=== PATIENT | male | born 1965 | race Caucasian/White ===

== ENCOUNTER 2022-01-30 16:34 | Emergency (ER) | payer BC ==
[2022-01-30 16:46] LABS: Glucose,Whole Blood 132 mg/dL (70-110)
[2022-01-30] MEDS ORDERED: SODIUM CHLORIDE 0.9% 1,000 ML IV STA (16:51)
--- NOTE | 2022-01-30 16:55 | ED ---
General Adult HPI - General Chief complaint: Neuro Symptoms/Deficit Stated complaint: altered mental status Time Seen by Provider: 01/30/22 16:50 Source: patient Mode of arrival: ambulatory Limitations: no limitations - History of Present Illness Initial comments: Dictation was produced using [employer] dictation software. please excuse any grammatical, word or spelling errors. Chief Complaint: 56-year-old male presents with strokelike symptoms History of Present Illness: History of present illness obtained from at the bedside. Patient is a 56-year-old male he has no known comorbidities. He presents with his . Patient was last seen normal approximately 10 AM today. He went for out for a walk at that time. 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 He came back into the house at around 4:00 where he was found to be altered. reports that this morning he did seem to have a little brain fog. The ROS documented in this emergency department record has been reviewed and confirmed by me. Those systems with pertinent positive or negative responses have been documented in the HPI. All other systems are other negative and/or noncontributory. PHYSICAL EXAM: General Impression: Does not follow commands, does not speak, not in acute distress HEENT: Normocephalic atraumatic, extra-ocular movements intact, pupils equal and reactive to light bilaterally, mucous membranes moist. Cardiovascular: Heart regular rate and rhythm Chest: no retractions, no tachypnea Abdomen: abdomen soft, non-tender, non-distended, no organomegaly Musculoskeletal: Pulses present and equal in all extremities, no peripheral edema Motor: Moves all showing grossly Neurological: CN II-XII grossly intact, does not follow commands, patient does move his lower extremities bilaterally with gentle plantar tickling. Patient is able to hold up his arms without any drift however does not follow commands and attempting to try to hold up his legs, patient is aphasic, no gaze deviation. NIH score 18 Skin: Intact with no visualized rashes Psych: Normal affect and mood ED course: 56-year-old male presents to the emergency Department with strokelike symptoms. His last known normal was around 10 AM according to . Signs upon arrival are within acceptable limits. Patient has extremely high NIH score. Patient not a candidate for out the place at this time given that he is outside the window for alteplase administration. Code stroke was paged. Laboratory evaluation obtained. CBC, coag panel, metabolic panel is unremarkable. Computed tomography scan the brain shows hypoattenuation in the left parietal lobe frontal lobe with septations suspicious for intracranial mass. Case was discussed with stroke neurologist who agreed with radiology interpretation. was updated at the bedside regarding patient's imaging studies. Patient will be transferred to higher level of care. Patient given 10 mg of IV Decadron. CT angios of the head and neck shows no large vessel occlusion or any acute intracranial vascular processes. Spoke with Dr. Garcia at [facility] who is willing to accept patient care for ER to ER transfer. EKG interpretation: Ventricular rate 71, sinus rhythm,. 126, QS 113, QTc 437. No DE prolongation, no QTC prolongation, no ST or T-wave changes noted. Overall, this EKG is unremarkable - Related Data Home Medications Medication Instructions Recorded Confirmed Omeprazole Magnesium [PriLOSEC OTC] 20 mg PO DAILY 01/30/22 01/30/22 Sucralfate [Carafate] 1 gm PO QID 01/30/22 01/30/22 Tamsulosin HCl [Flomax] 0.4 mg PO DAILY 01/30/22 01/30/22 Allergies Allergy/AdvReac Type Severity Reaction Status Date / Time No Known Allergies Allergy Verified 01/30/22 17:08 Review of Systems ROS Statement: Those systems with pertinent positive or pertinent negative responses have been documented in the HPI. ROS Other: All systems not noted in ROS Statement are negative. Past Medical History Past Medical History: No Reported History History of Any Multi-Drug Resistant Organisms: None Reported Past Surgical History: No Surgical Hx Reported Past Psychological History: No Psychological Hx Reported Smoking Status: Never smoker Past Alcohol Use History: Occasional Past Drug Use History: None Reported General Exam Limitations: no limitations Course Vital Signs 01/30/22 01/30/22 01/30/22 16:36 17:00 17:14 Temperature 97.6 F Pulse Rate 66 90 93 Respiratory 18 22 18 Rate Blood Pressure 138/88 148/95 148/95 O2 Sat by Pulse 92 L 94 L 90 L Oximetry 01/30/22 01/30/22 17:30 18:00 Temperature 98.4 F 98.3 F Pulse Rate 102 H 101 H Respiratory 22 16 Rate Blood Pressure 146/84 134/87 O2 Sat by Pulse 98 98 Oximetry Medical Decision Making - Lab Data Result diagrams: 01/30/22 17:08 01/30/22 17:08 Lab Results 01/30/22 01/30/22 01/30/22 Range/Units 16:45 17:08 17:08 WBC 9.1 (3.8-10.6) k/uL RBC 4.58 (4.30-5.90) m/uL Hgb 14.3 (13.0-17.5) gm/dL Hct 42.8 (39.0-53.0) % MCV 93.5 (80.0-100.0) fL MCH 31.1 (25.0-35.0) pg MCHC 33.3 (31.0-37.0) g/dL RDW 12.9 (11.5-15.5) % Plt Count 327 (150-450) k/uL MPV 7.2 Neutrophils % 74 % Lymphocytes % 17 % Monocytes % 4 % Eosinophils % 2 % Basophils % 1 % Neutrophils # 6.8 (1.3-7.7) k/uL Lymphocytes # 1.6 (1.0-4.8) k/uL Monocytes # 0.4 (0-1.0) k/uL Eosinophils # 0.1 (0-0.7) k/uL Basophils # 0.1 (0-0.2) k/uL PT 10.5 (9.0-12.0) sec INR 1.0 (<1.2) APTT 20.8 L (22.0-30.0) sec Sodium (137-145) mmol/L Potassium (3.5-5.1) mmol/L Chloride (98-107) mmol/L Carbon Dioxide (22-30) mmol/L Anion Gap mmol/L BUN (9-20) mg/dL Creatinine (0.66-1.25) mg/dL Est GFR (CKD-EPI)AfAm (>60 ml/min/1.73 sqM) Est GFR (CKD-EPI)NonAf (>60 ml/min/1.73 sqM) Glucose (74-99) mg/dL POC Glucose (mg/dL) 132 H (70-110) mg/dL POC Glu Mental Health Therapist ID Dwaine Owen Calcium (8.4-10.2) mg/dL Total Bilirubin (0.2-1.3) mg/dL AST (17-59) U/L ALT (4-49) U/L Alkaline Phosphatase (38-126) U/L Troponin I (0.000-0.034) ng/mL Total Protein (6.3-8.2) g/dL Albumin (3.5-5.0) g/dL 01/30/22 01/30/22 Range/Units 17:08 17:08 WBC (3.8-10.6) k/uL RBC (4.30-5.90) m/uL Hgb (13.0-17.5) gm/dL Hct (39.0-53.0) % MCV (80.0-100.0) fL MCH (25.0-35.0) pg MCHC (31.0-37.0) g/dL RDW (11.5-15.5) % Plt Count (150-450) k/uL MPV Neutrophils % % Lymphocytes % % Monocytes % % Eosinophils % % Basophils % % Neutrophils # (1.3-7.7) k/uL Lymphocytes # (1.0-4.8) k/uL Monocytes # (0-1.0) k/uL Eosinophils # (0-0.7) k/uL Basophils # (0-0.2) k/uL PT (9.0-12.0) sec INR (<1.2) APTT (22.0-30.0) sec Sodium 139 (137-145) mmol/L Potassium 3.9 (3.5-5.1) mmol/L Chloride 104 (98-107) mmol/L Carbon Dioxide 31 H (22-30) mmol/L Anion Gap 4 mmol/L BUN 13 (9-20) mg/dL Creatinine 0.88 (0.66-1.25) mg/dL Est GFR (CKD-EPI)AfAm >90 (>60 ml/min/1.73 sqM) Est GFR (CKD-EPI)NonAf >90 (>60 ml/min/1.73 sqM) Glucose 138 H (74-99) mg/dL POC Glucose (mg/dL) (70-110) mg/dL POC Glu Mental Health Therapist ID Calcium 9.0 (8.4-10.2) mg/dL Total Bilirubin 0.4 (0.2-1.3) mg/dL AST 19 (17-59) U/L ALT 13 (4-49) U/L Alkaline Phosphatase 59 (38-126) U/L Troponin I <0.012 (0.000-0.034) ng/mL Total Protein 6.8 (6.3-8.2) g/dL Albumin 4.4 (3.5-5.0) g/dL Critical Care Time Critical Care Time: Yes Total Critical Care Time: 33 Disposition Clinical Impression: Brain mass Disposition: OTHER INSTITUTION NOT DEFINED Condition: Serious Is patient prescribed a controlled substance at d/c from ED?: No Referrals: None,Stated [Primary Care Provider] - 1-2 days - Out of Hospital Transfer - Req. Specs Out of Hospital Transfer - Requested Specifics: Other [facility] ([facility])
[2022-01-30] MEDS ORDERED: LORazepam 2 MG/ML INJ IM STA (17:15)
[2022-01-30 17:18] LABS: Basophils # (A) 0.1 k/uL (0-0.2); Basophils % (A) 1 %; Eosinophils # (A) 0.1 k/uL (0-0.7); Eosinophils % (A) 2 %; HCT 42.8 % (39.0-53.0); HGB 14.3 gm/dL (13.0-17.5); Lymphocytes # (A) 1.6 k/uL (1.0-4.8); Lymphocytes % (A) 17 %; MCH 31.1 pg (25.0-35.0); MCHC 33.3 g/dL (31.0-37.0); MCV 93.5 fL (80.0-100.0); Mean Platelet Volume 7.2; Monocytes # (A) 0.4 k/uL (0-1.0); Monocytes % (A) 4 %; Neutrophils # (A) 6.8 k/uL (1.3-7.7); Neutrophils % (A) 74 %; Platelet Count 327 k/uL (150-450); RBC 4.58 m/uL (4.30-5.90); RDW 12.9 % (11.5-15.5); WBC 9.1 k/uL (3.8-10.6)
[2022-01-30] MEDS ORDERED: levETIRAcetam IV 1,000 MG in SALINE 1 100ML.BAG IVPB STA (17:20)
--- NOTE | 2022-01-30 17:29 | CT ---
EXAMINATION TYPE: CT brain wo con for TPA CT DLP: 1137.2 mGycm, Automated exposure control for dose reduction was used. DATE OF EXAM: 01/30/2022 5:06 PM COMPARISON: CT brain same day. CLINICAL INDICATION:Male, 56 years old with history of Neuro deficit, acute, stroke suspected, cva TECHNIQUE: Brain: Multiple axial CT images of the brain were obtained without IV contrast. FINDINGS: Brain: Extra-axial spaces: No abnormal extra-axial fluid collections. Ventricular system: Effacement of the left lateral ventricle secondary to intra-axial mass. Cerebral parenchyma: Heterogenous appearance to left parietal lobe/frontal lobe multiple low-attenuat ion areas with septations present. The area measures roughly 6.1 x 2.7 x 5.5 cm No acute intraparenchymal hemorrhage or mass effect. The fagan-white junction is well differentiated. Cerebellum: Unremarkable. Mass effect: No evidence of midline shift. Intracranial vasculature: unremarkable Soft tissues: Normal. Calvarium/osseous structures: No depressed skull fracture. Paranasal sinuses and mastoid air cells: Mild scattered paranasal sinus disease most pronounced in th e left maxillary sinus.. Visualized orbits: Orbital contents are intact. IMPRESSION: Suspected underlying mass within the left posterior frontal/parietal region lobe. Further evaluation with MRI with and without IV contrast is recommended. Furthermore there is mild effacement of the lef t lateral ventricle compared to a forementioned mass.
[2022-01-30 17:30] LABS: ALT 13 U/L (4-49); AST 19 U/L (17-59); African American GFR (CKD) >90 (>60 ml/min/1.73 sqM); Albumin 4.4 g/dL (3.5-5.0); Alkaline Phosphatase 59 U/L (38-126); Anion Gap 4 mmol/L; Blood Urea Nitrogen 13 mg/dL (9-20); Carbon Dioxide 31 mmol/L (22-30); Chloride 104 mmol/L (98-107); Glucose 138 mg/dL (74-99); Non-African American GFR(CKD) >90 (>60 ml/min/1.73 sqM); Potassium 3.9 mmol/L (3.5-5.1); Sodium 139 mmol/L (137-145); Total Bilirubin 0.4 mg/dL (0.2-1.3); Total Protein 6.8 g/dL (6.3-8.2)
[2022-01-30 17:37] LABS: Prothrombin Time 10.5 sec (9.0-12.0)
[2022-01-30 17:44] LABS: Partial Thromboplastin Time 20.8 sec (22.0-30.0)
[2022-01-30] MEDS ORDERED: DEXAMETHASONE SOD PHOSPHATE 10 MG/ML 1 ML VIAL IV STA (17:53)
--- NOTE | 2022-01-30 18:02 | CT ---
EXAMINATION TYPE: CT angio head neck CT DLP: 433.4 mGycm, Automated exposure control for dose reduction was used. DATE OF EXAM: 01/30/2022 5:29 PM COMPARISON: CT brain same day. CLINICAL INDICATION:Male, 56 years old with history of Neuro deficit, acute, stroke suspected; cva TECHNIQUE: Axially acquired helical CT angiogram of the head and neck was obtained with contrast util izing 65 cc of Isovue-370 administered intravenously. Axial images are supplemented with 3D reconstru ctions which were post-processed at an independent workstation. NASCET criteria used. FINDINGS: CTA HEAD: Redemonstration of intra-axial left posterior frontal/parietal region intra-axial mass. Few vessels enter this mass best appreciated on series 406 image 61. No evidence of hemorrhage. Better c haracterized on prior CT head. No evidence of acute intracranial hemorrhage, or midline shift. The ventricles, sulci, and cisterns a re unremarkable. The visualized portions of the internal carotid arteries, middle cerebral arteries, anterior cerebral arteries, and posterior cerebral arteries are patent. The basilar and vertebral arteries are patent. CTA NECK: Right Carotid System: The common carotid artery and external carotid artery are patent. The carotid bifurcation demonstrate s no evidence of hemodynamically significant stenosis. The remaining portions of the internal carotid artery demonstrate normal size without significant narrowing. Left Carotid System: The common carotid artery and external carotid artery are patent. The carotid bifurcation demonstrate s no evidence of hemodynamically significant stenosis. The remaining portions of the internal carotid artery demonstrate normal size without significant narrowing. Vertebral arteries are patent without evidence hemodynamically significant stenosis. There is a three-vessel aortic arch. The origins of the great vessels are patent. No evidence of hemo dynamically significant stenosis. There is layering debris within the trachea. Scattered mucosal thickening of the paranasal sinuses mo st proximal left maxillary sinus. IMPRESSION: 1. No evidence of dissection of the cervical internal carotid arteries or vertebral arteries or any e vidence of significant stenosis at the carotid bifurcations. 2. No evidence of high-grade stenosis or intracranial aneurysm. 3. Suspected intra-axial mass within the left posterior frontal/parietal region. No evidence of hemor rhage. Further evaluation with MRI with IV contrast is recommended.
[2022-01-30 18:07] VITALS: BP 134/87; PULSE 101; RESP 16; TEMP 98.3
--- NOTE | 2022-01-30 19:07 | XR ---
EXAMINATION TYPE: XR chest 1V portable DATE OF EXAM: 01/30/2022 6:13 PM COMPARISON: none TECHNIQUE: XR chest 1V portable Portable AP radiograph of the chest. CLINICAL INDICATION:Male, 56 years old with history of altered mental status; FINDINGS: Lungs/Pleura: There is no evidence of pleural effusion, focal consolidation, or pneumothorax. Pulmonary vascularity: Unremarkable. Heart/mediastinum: Cardiomediastinal silhouette is unremarkable. Musculoskeletal: No acute osseous pathology. IMPRESSION: No acute cardiopulmonary disease/process.
== END 2022-01-30 18:55 | disposition other institution (70) ==
LOC: EC 16:34
DX: G93.89 Other specified disorders of brain (principal)
CPT/HCPCS: 36415; 93005; 80053; 84484; 85025; 85610; 85730; 71045; 70496; 70450; 70498; 99291; 96365; 96361; 96375; 96372; J2060; J1100; J1953; Q9967; 96374

== ENCOUNTER → 2022-05-22 | Outpatient (CLI) | payer BC ==
--- NOTE | 2022-05-22 18:54 | MR ---
EXAMINATION TYPE: MR brain wo/w con DATE OF EXAM: 05/22/2022 COMPARISON: 02/08/2022 HISTORY: Brain cancer, history of surgery. CONTRAST: Performed utilizing 7 mL intravenous Gadavist gadolinium contrast. TECHNIQUE: Multiplanar, multiecho imaging on a 3.0 Yady magnet is performed through the brain. Stud y is performed within 24 hours of arrival to the hospital. Findings: There is a large area of vasogenic edema extending through the left parietal occipital lobe s with mild extension into the temporal lobe. Patient's known neoplasm and surgery in the trilobar re gion is evident. On postcontrast T1 weighted images this measures 7.0 AP by 3.6 transverse by 5.5 cm cranial caudal dimension. (Prior measurement 5.0 x 3.0 x 4.9 cm) There is a central area of low sign al which may be necrosis. This has mass effect on the occipital horn left lateral ventricle. Vasogeni c edema has effacement of adjacent sulci. No subfalcine herniation is evident. No tentorial herniatio n is evident. There is approximately 0.6 cm midline shift at the level of the lateral ventricles of 0 .6 cm. There is some compression of the left lateral ventricle. No temporal horn dilatation is evident. No h ydrocephalus is evident. There are ventricle shifted towards the right. Fourth ventricle is normal an d midline. No additional areas of abnormal enhancement. There may be a few punctate subcortical white matter kayleigh nges within the remaining portions of brain, likely on the basis of chronic white matter ischemic typ e changes. Migraine headaches, or vasculitis could be considered. IMPRESSIONS: 1. Enlarging mass in the trilobar region best visualized on postcontrast imaging causing mass effect and vasogenic edema. Some midline shift is noted at this time which is an interval change. Report is provided to the referring physician by telephone at 1850 hours 05/22/2022.
== END | disposition home or self-care (01) ==
LOC: RADMRIMAIN 10:31
PROVIDERS: ATTEND Radiology Radiation Oncology
DX: C71.3 Malignant neoplasm of parietal lobe (principal)
CPT/HCPCS: 70553; A9585

== ENCOUNTER → 2022-06-22 | Outpatient (CLI) | payer BC ==
--- NOTE | 2022-06-22 17:04 | MR ---
EXAMINATION TYPE: MR brain wo/w con DATE OF EXAM: 06/22/2022 COMPARISON: 05/22/2022 HISTORY: Brain tumor removed CONTRAST: Performed utilizing 7 mL intravenous Gadavist gadolinium contrast. TECHNIQUE: Multiplanar, multiecho imaging on a 3.0 Yady magnet is performed through the brain. Stud y is performed within 24 hours of arrival to the hospital. The craniovertebral junction is normal. The pituitary is normal. Prior surgical intervention is evident within the left parietal-occipital region. Adjacent vasogenic edema is present extending towards the left basal ganglia through the occipital and parietal lobes. U nderlying precontrast central mass measures 3.7 x 2.3 centimeters previous measurement 3.3 x 1.8 cm. This has slightly enlarged from comparison. There is compression of the left lateral ventricle with d isplacement of the occipital horn. Postcontrast sagittal images are reviewed. The area of the abnormality has peripheral enhancement and measures 6.1 x 7.0 x 4.7cm. Prior measurement 6.2 x 6.3 x 4.2 cm. Some mild midline shift is present estimated at 0.7 cm. No additional abnormal areas of enhancement i s evident. The sulci in the parietal occipital region are effaced. Findings appear stable from compar mikala. Diffusion-weighted imaging is performed. No abnormal hyperintensity is present to suggest an acute i ntracranial infarct or acute ischemic change. Few scattered punctate subcortical white matter changes are evident in the remaining portion of the f ield. These are nonspecific present previously and likely related to chronic white matter ischemic ch anges. Ventricles and sulci are otherwise appropriate for the patient age. No temporal horn dilatation is e vident. IMPRESSIONS: 1. Slight enlargement of the left parietal occipital lobe enhancing mass. 2. Mass has adjacent vasogenic edema causing compression of the sulci and ventricle with some 0.7 cm midline shift towards the right which appears similar to the comparison. 3. Chronic appearing scattered punctate subcortical white matter changes.
== END | disposition home or self-care (01) ==
LOC: RADMRIMAIN 11:37
PROVIDERS: ATTEND Radiology Radiation Oncology
DX: C71.3 Malignant neoplasm of parietal lobe (principal); R90.82 White matter disease, unspecified; Z79.899 Other long term (current) drug therapy
CPT/HCPCS: 70553; A9585

== ENCOUNTER → 2022-10-03 | Outpatient (CLI) | payer BC ==
--- NOTE | 2022-10-05 08:54 | MR ---
EXAMINATION TYPE: MR brain wo/w con DATE OF EXAM: 10/03/2022 10:18 AM CLINICAL INDICATION:Male, 57 years old with history of C71.3; Prior on PACS, FU brain tumor, Gadavis t 6.5 COMPARISON: 08/07/2022 most recent. TECHNIQUE: Multi planar, multi sequence imaging was performed through the brain including: T1, T2, In version recovery, susceptibility weighted imaging and gradient echo imaging and Diffusion weighted im aging. The patient was then given intravenous contrast and multi planar, T1 fat-saturation images wer e obtained. IV Contrast: 6.5 cc Gadavist FINDINGS: Redemonstration of posttreatment changes to the left parietal region. There remains tumor bed somewha t thin peripheral high T2 signal enhancement which has decreased from prior overall there is decrease d in size measuring 4.1 x 3.9 x 2.3 cm, previously 6.1 x 7.8 x 4.4 cm. Areas of intrinsic high T1 sig nal on precontrast imaging remain present. There is felt to be postcontrast enhancement in some of th mariama areas examples include series series 702 image 13 anterior lesion along the mass, superiorly at i mage 13 also present. There is decrease in vasogenic edema in this region. No new masses visualized. No additional abnormal enhancement identified. No evidence for acute/subacute CVA. Scattered high T2 FLAIR foci throughout the deep white matter. The bone marrow signal demonstrates treatment changes the left posterior skull. Metallic plates in pl cornelius. Paranasal sinuses and mastoid air cells: Mucosal thickening of the left maxillary sinus. Visualized orbits: Orbital contents are intact. IMPRESSION: Posttreatment changes with decrease in size of the parietal intra-axial mass. There remains periphera l enhancement and intrinsic high T1 signal suggestive of residual disease. Continued follow-up imagin g. No new masses identified.
== END | disposition home or self-care (01) ==
LOC: RADMRIMAIN 09:25
PROVIDERS: ATTEND Radiology Radiation Oncology
DX: C71.3 Malignant neoplasm of parietal lobe (principal); Z79.899 Other long term (current) drug therapy; Z98.890 Other specified postprocedural states
CPT/HCPCS: 70553; A9585

== ENCOUNTER 2022-12-26 16:19 | Inpatient (IN) | payer BC ==
[2022-12-26] MEDS ORDERED: SODIUM CHLORIDE 0.9% 1,000 ML IV STA (16:38)
[2022-12-26 16:52] LABS: Glucose,Whole Blood 116 mg/dL (70-110)
--- NOTE | 2022-12-26 16:54 | ED ---
Altered Mental Status HPI - General Chief Complaint: Neuro Symptoms/Deficit Stated Complaint: right side weakness-brain tumor Time Seen by Provider: 12/26/22 16:38 Source: patient, RN notes reviewed, old records reviewed, Caregiver Mode of arrival: EMS Limitations: no limitations - History of Present Illness Initial Comments: This is a 57-year-old male is unable to give history patient's history obtained by and family. EMS. Patient presented with altered mental status patient awoke today not feeling well per family he then took a nap around 10 woke up around 12:30 even worse off and condition. Not speaking and acting appropriately. 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 Patient is unable to provide history but he does deny pain MD Complaint: altered mental status, confusion, decreased responsiveness, weakness -: unknown Severity: severe Consistency of Symptoms: waxing and waning, getting worse Context: history of similar presentation, recent fever, seizure disorder (No known history of but history of brain surgery) Associated Symptoms: diaphoresis, fever/chills, nausea/vomiting, weakness Treatments Prior to Arrival: IV fluid, oxygen - Related Data Home Medications Medication Instructions Recorded Confirmed Tamsulosin HCl [Flomax] 0.8 mg PO HS 01/30/22 12/26/22 Finasteride [Proscar] 5 mg PO HS 12/26/22 12/26/22 Ondansetron [Zofran] 4 - 8 mg PO Q8H PRN 12/26/22 12/26/22 Temozolomide [Temodar] 250 mg PO DIRECTED 12/26/22 12/26/22 levETIRAcetam [Keppra] 1,000 mg PO BID 12/26/22 12/26/22 Previous Rx's Medication Instructions Recorded Amoxic-Pot Clav 875-125Mg 1 each PO Q12HR #10 tab 12/31/22 [Augmentin 875-125] Allergies Allergy/AdvReac Type Severity Reaction Status Date / Time No Known Allergies Allergy Verified 12/26/22 19:26 Review of Systems ROS Statement: Those systems with pertinent positive or pertinent negative responses have been documented in the HPI. ROS Other: All systems not noted in ROS Statement are negative. Past Medical History Past Medical History: No Reported History History of Any Multi-Drug Resistant Organisms: None Reported Past Surgical History: No Surgical Hx Reported Past Psychological History: No Psychological Hx Reported Smoking Status: Never smoker Past Alcohol Use History: Occasional Past Drug Use History: None Reported - Past Family History Mother Family Medical History: Unable to Obtain (due to patient's mental status) General Exam Limitations: altered mental status General appearance: alert, in no apparent distress, lethargic, in distress Head exam: Present: atraumatic, normocephalic, normal inspection Eye exam: Present: normal appearance, PERRL, EOMI. Absent: scleral icterus, conjunctival injection, periorbital swelling ENT exam: Present: normal exam, mucous membranes moist Neck exam: Present: normal inspection. Absent: tenderness, meningismus, ly mphadenopathy Respiratory exam: Present: normal lung sounds bilaterally. Absent: respiratory distress, wheezes, rales, rhonchi, stridor Cardiovascular Exam: Present: regular rate, normal rhythm, normal heart sounds. Absent: systolic murmur, diastolic murmur, rubs, gallop, clicks GI/Abdominal exam: Present: soft, normal bowel sounds. Absent: distended, tenderness, guarding, rebound, rigid Extremities exam: Present: normal inspection, full ROM, normal capillary refill. Absent: tenderness, pedal edema, joint swelling, calf tenderness Back exam: Present: normal inspection Neurological exam: Present: alert, oriented X3, CN II-XII intact Psychiatric exam: Present: normal affect, normal mood Skin exam: Present: warm, dry, intact, normal color. Absent: rash Course Vital Signs 12/26/22 12/26/22 12/26/22 16:26 16:32 16:38 Temperature 98.0 F Pulse Rate 105 H 108 H 96 Respiratory 20 18 Rate Blood Pressure 129/72 135/88 O2 Sat by Pulse 93 L 97 90 L Oximetry 12/26/22 12/26/22 12/26/22 16:53 17:08 17:23 Temperature Pulse Rate 111 H 104 H 105 H Respiratory 18 18 18 Rate Blood Pressure 157/101 161/98 152/94 O2 Sat by Pulse 99 99 98 Oximetry 12/26/22 12/26/22 12/26/22 18:23 18:50 19:29 Temperature 100.9 F H Pulse Rate 109 H 101 H Respiratory 18 18 Rate Blood Pressure 145/97 138/84 O2 Sat by Pulse 97 97 Oximetry 12/26/22 21:19 Temperature Pulse Rate 86 Respiratory 18 Rate Blood Pressure 106/66 O2 Sat by Pulse 95 Oximetry - Reevaluation(s) Reevaluation #1: 12/26/22 23:11 Medical records reviewed Code stroke was paged on patient arrival No TPA candidate secondary to wake up stroke with symptoms starting around 10 AM outside of a 5 hour window Reevaluation #2: 12/26/22 23:12 No significant change in symptoms here in the ER Reevaluation #3: 12/26/22 23:12 patient family informed of results and questions answered Reevaluation #4: 12/26/22 23:12 Was pt. sent in by a medical professional or institution? @ -no Did you speak to anyone other than the patient for history? @ -yes did speak to the patient's is at bedside gives history surrounding presentation to the emergency department Did you review nursing and triage notes? @ -agree Were old charts reviewed? @ -no Differential Diagnosis? @ -prior EKG interpreted by me (3pts min.)? @ -yes X-rays interpreted by me (1pt min.)? @ -yes CT interpreted by me (1pt min.)? @ -yes U/S interpreted by me (1pt. min.)? @ -no What testing was considered but not performed? (CT, X-rays, U/S, labs)? Why? @ -no What meds were considered but not given? Why? @ -no Did you discuss the management of the patient with other professionals? @ -no Did you reconcile home meds? @ -no Was smoking cessation discussed for >3mins.? @ -no Was critical care preformed (if so, how long)? @ -yes31 Were there social determinants of health that impacted care today? How? (Homelessness, low income, unemployed, alcoholism, drug addiction, transportation, low edu. Level, literacy, decrease access to med. care, retirement, rehab)? @ -no Was there de-escalation of care discussed even if they declined? (Discuss DNR or withdrawal of care, Hospice)? @ -no What co-morbidities impacted this encounter? (DM, HTN, Smoking, COPD, CAD, Cancer, CVA, Hep., AIDS, mental health diagnosis, sleep apnea, morbid obesity)? @ -none Was patient admitted / discharged? @ -57 male to the emergency department with significant altered mental status found to have fever pneumonia hypoxia and came in as a code stroke. Admitted Undiagnosed new problem with uncertain prognosis? @ -no Drug Therapy requiring intensive monitoring for toxicity (Heparin, Nitro, Insulin, Cardizem)? @ -no Were any procedures done? @ -no Diagnosis/symptom? @ -Altered mental status, fever, pneumonia, CVA Acute, or Chronic, or Acute on Chronic? @ -Acute Uncomplicated (without systemic symptoms) or Complicated (systemic symptoms)? @ -complicated Side effects of treatment? @ -no Exacerbation, Progression, or Severe Exacerbation] @ -no Poses a threat to life or bodily function? @ -yes with altered mental status secondary to fever and sepsis, CVA Reevaluation #5: 12/26/22 23:12 Differential Dyspnea: Coronary syndrome, arrhythmia, tamponade, asthma, COPD, pulmonary embolism, pneumonia, pneumothorax, pulmonary effusion, anaphylaxis, diabetic ketoacidosis, flailed chest, pulmonary contusion, diaphragmatic rupture, anemia, neuromuscular, this is not meant to be an all-inclusive list. Differential Fever: Pneumonia, viral URI, endocarditis, myocarditis, pericarditis, otitis, sinusitis, peritonsillar Abscess, retropharyngeal Abscess, epiglottitis, peritonitis, appendicitis, Karley cystitis, diverticulitis, hepatitis, colitis, UTI, PID, TOA, pyelonephritis, prostatitis, epididymitis, meningitis, encephalitis, pulmonary embolism, CVA, thyroid storm, pancreatitis, adrenal crisis, cavernous sinus thrombosis, this is not meant to be an all-inclusive list. Differential Altered Mental Status: Hypoglycemia, DKA, hypercapnia, ETOH, overdose, CO poisoning, trauma, myxedema coma, HTN encephalopathy, infection, encephalitis, psychosis, intercranial hemorrhage, hepatic encephalopathy, meningitis, CVA, this is not meant to be an all-inclusive list - Consultations Consultation #1: Spoke with admitting physicians will admit this patient Medical Decision Making - Medical Decision Making 57 male to the emergency department for evaluation of altered mental status w code stroke, patient is found to have fever and coronavirus w pneumonia, hypoxia profound and persistent here in the emergency department patient is no real change of neurological symptoms here in the ER Unable to obtain CTa of chest for PE w elevated dDimer and hyypoxia due to prior contrast CT of head No blood thinners with possible bleeding on CT brain - Lab Data Result diagrams: 12/31/22 08:03 06/12/23 08:03 Lab Results 12/26/22 12/26/22 12/26/22 Range/Units 16:48 16:48 16:48 WBC 8.8 (3.8-10.6) k/uL RBC 5.02 (4.30-5.90) m/uL Hgb 14.9 (13.0-17.5) gm/dL Hct 44.9 (39.0-53.0) % MCV 89.4 (80.0-100.0) fL MCH 29.6 (25.0-35.0) pg MCHC 33.1 (31.0-37.0) g/dL RDW 13.5 (11.5-15.5) % Plt Count 291 (150-450) k/uL MPV 7.4 Neutrophils % 85 % Lymphocytes % 5 % Monocytes % 7 % Eosinophils % 1 % Basophils % 0 % Neutrophils # 7.5 (1.3-7.7) k/uL Lymphocytes # 0.4 L (1.0-4.8) k/uL Monocytes # 0.6 (0-1.0) k/uL Eosinophils # 0.1 (0-0.7) k/uL Basophils # 0.0 (0-0.2) k/uL PT 10.2 (9.0-12.0) sec INR 1.0 (<1.2) APTT 22.3 (22.0-30.0) sec D-Dimer (<0.60) mg/L FEU Sodium (137-145) mmol/L Potassium (3.5-5.1) mmol/L Chloride (98-107) mmol/L Carbon Dioxide (22-30) mmol/L Anion Gap mmol/L BUN (9-20) mg/dL Creatinine (0.66-1.25) mg/dL Est GFR (CKD-EPI)AfAm (>60 ml/min/1.73 sqM) Est GFR (CKD-EPI)NonAf (>60 ml/min/1.73 sqM) Glucose (74-99) mg/dL POC Glucose (mg/dL) (70-110) mg/dL POC Glu [employer] ID Calcium (8.4-10.2) mg/dL Total Bilirubin (0.2-1.3) mg/dL AST (17-59) U/L ALT (4-49) U/L Alkaline Phosphatase (38-126) U/L Creatine Kinase (55-170) U/L Troponin I (0.000-0.034) ng/mL Total Protein (6.3-8.2) g/dL Albumin (3.5-5.0) g/dL Urine Color Yellow Urine Appearance Cloudy (Clear) Urine pH 6.5 (5.0-8.0) Ur Specific [place] 1.029 (1.001-1.035) Urine Protein Trace H (Negative) Urine Glucose (UA) Negative (Negative) Urine Ketones Negative (Negative) Urine Blood Negative (Negative) Urine Nitrite Positive (Negative) Urine Bilirubin Negative (Negative) Urine Urobilinogen <2.0 (<2.0) mg/dL Ur Leukocyte Esterase Large H (Negative) Urine RBC 6 H (0-5) /hpf Urine WBC >182 H (0-5) /hpf Ur Squamous Epith Cells <1 (0-4) /hpf Urine Bacteria Rare H (None) /hpf Urine Mucus Occasional H (None) /hpf Urine Opiates Screen Not Detected (NotDetected) Ur Oxycodone Screen Not Detected (NotDetected) Urine Methadone Screen Not Detected (NotDetected) Ur Propoxyphene Screen Not Detected (NotDetected) Ur Barbiturates Screen Not Detected (NotDetected) U Tricyclic Antidepress Not Detected (NotDetected) Ur Phencyclidine Scrn Not Detected (NotDetected) Ur Amphetamines Screen Not Detected (NotDetected) U Methamphetamines Scrn Not Detected (NotDetected) U Benzodiazepines Scrn Not Detected (NotDetected) Urine Cocaine Screen Not Detected (NotDetected) U Marijuana (THC) Screen Not Detected (NotDetected) 12/26/22 12/26/22 12/26/22 Range/Units 16:48 16:48 16:48 WBC (3.8-10.6) k/uL RBC (4.30-5.90) m/uL Hgb (13.0-17.5) gm/dL Hct (39.0-53.0) % MCV (80.0-100.0) fL MCH (25.0-35.0) pg MCHC (31.0-37.0) g/dL RDW (11.5-15.5) % Plt Count (150-450) k/uL MPV Neutrophils % % Lymphocytes % % Monocytes % % Eosinophils % % Basophils % % Neutrophils # (1.3-7.7) k/uL Lymphocytes # (1.0-4.8) k/uL Monocytes # (0-1.0) k/uL Eosinophils # (0-0.7) k/uL Basophils # (0-0.2) k/uL PT (9.0-12.0) sec INR (<1.2) APTT (22.0-30.0) sec D-Dimer 1.50 H (<0.60) mg/L FEU Sodium 137 (137-145) mmol/L Potassium 4.3 (3.5-5.1) mmol/L Chloride 101 (98-107) mmol/L Carbon Dioxide 28 (22-30) mmol/L Anion Gap 8 mmol/L BUN 21 H (9-20) mg/dL Creatinine 0.86 (0.66-1.25) mg/dL Est GFR (CKD-EPI)AfAm >90 (>60 ml/min/1.73 sqM) Est GFR (CKD-EPI)NonAf >90 (>60 ml/min/1.73 sqM) Glucose 111 H (74-99) mg/dL POC Glucose (mg/dL) (70-110) mg/dL POC Glu [employer] ID Calcium 9.1 (8.4-10.2) mg/dL Total Bilirubin 0.4 (0.2-1.3) mg/dL AST 19 (17-59) U/L ALT 15 (4-49) U/L Alkaline Phosphatase 54 (38-126) U/L Creatine Kinase 51 L (55-170) U/L Troponin I <0.012 (0.000-0.034) ng/mL Total Protein 6.7 (6.3-8.2) g/dL Albumin 4.1 (3.5-5.0) g/dL Urine Color Urine Appearance (Clear) Urine pH (5.0-8.0) Ur Specific [place] (1.001-1.035) Urine Protein (Negative) Urine Glucose (UA) (Negative) Urine Ketones (Negative) Urine Blood (Negative) Urine Nitrite (Negative) Urine Bilirubin (Negative) Urine Urobilinogen (<2.0) mg/dL Ur Leukocyte Esterase (Negative) Urine RBC (0-5) /hpf Urine WBC (0-5) /hpf Ur Squamous Epith Cells (0-4) /hpf Urine Bacteria (None) /hpf Urine Mucus (None) /hpf Urine Opiates Screen (NotDetected) Ur Oxycodone Screen (NotDetected) Urine Methadone Screen (NotDetected) Ur Propoxyphene Screen (NotDetected) Ur Barbiturates Screen (NotDetected) U Tricyclic Antidepress (NotDetected) Ur Phencyclidine Scrn (NotDetected) Ur Amphetamines Screen (NotDetected) U Methamphetamines Scrn (NotDetected) U Benzodiazepines Scrn (NotDetected) Urine Cocaine Screen (NotDetected) U Marijuana (THC) Screen (NotDetected) 12/26/22 Range/Units 16:50 WBC (3.8-10.6) k/uL RBC (4.30-5.90) m/uL Hgb (13.0-17.5) gm/dL Hct (39.0-53.0) % MCV (80.0-100.0) fL MCH (25.0-35.0) pg MCHC (31.0-37.0) g/dL RDW (11.5-15.5) % Plt Count (150-450) k/uL MPV Neutrophils % % Lymphocytes % % Monocytes % % Eosinophils % % Basophils % % Neutrophils # (1.3-7.7) k/uL Lymphocytes # (1.0-4.8) k/uL Monocytes # (0-1.0) k/uL Eosinophils # (0-0.7) k/uL Basophils # (0-0.2) k/uL PT (9.0-12.0) sec INR (<1.2) APTT (22.0-30.0) sec D-Dimer (<0.60) mg/L FEU Sodium (137-145) mmol/L Potassium (3.5-5.1) mmol/L Chloride (98-107) mmol/L Carbon Dioxide (22-30) mmol/L Anion Gap mmol/L BUN (9-20) mg/dL Creatinine (0.66-1.25) mg/dL Est GFR (CKD-EPI)AfAm (>60 ml/min/1.73 sqM) Est GFR (CKD-EPI)NonAf (>60 ml/min/1.73 sqM) Glucose (74-99) mg/dL POC Glucose (mg/dL) 116 H (70-110) mg/dL POC Glu [employer] ID Uche Muñoz Calcium (8.4-10.2) mg/dL Total Bilirubin (0.2-1.3) mg/dL AST (17-59) U/L ALT (4-49) U/L Alkaline Phosphatase (38-126) U/L Creatine Kinase (55-170) U/L Troponin I (0.000-0.034) ng/mL Total Protein (6.3-8.2) g/dL Albumin (3.5-5.0) g/dL Urine Color Urine Appearance (Clear) Urine pH (5.0-8.0) Ur Specific [place] (1.001-1.035) Urine Protein (Negative) Urine Glucose (UA) (Negative) Urine Ketones (Negative) Urine Blood (Negative) Urine Nitrite (Negative) Urine Bilirubin (Negative) Urine Urobilinogen (<2.0) mg/dL Ur Leukocyte Esterase (Negative) Urine RBC (0-5) /hpf Urine WBC (0-5) /hpf Ur Squamous Epith Cells (0-4) /hpf Urine Bacteria (None) /hpf Urine Mucus (None) /hpf Urine Opiates Screen (NotDetected) Ur Oxycodone Screen (NotDetected) Urine Methadone Screen (NotDetected) Ur Propoxyphene Screen (NotDetected) Ur Barbiturates Screen (NotDetected) U Tricyclic Antidepress (NotDetected) Ur Phencyclidine Scrn (NotDetected) Ur Amphetamines Screen (NotDetected) U Methamphetamines Scrn (NotDetected) U Benzodiazepines Scrn (NotDetected) Urine Cocaine Screen (NotDetected) U Marijuana (THC) Screen (NotDetected) - EKG Data -: EKG Interpreted by Me (EKG is sinus 76 IL 157 QRS 104 QTC 382) - Radiology Data Radiology results: report reviewed (Computed tomography scan of the brain CT had neck show postsurgical changes, chest x-ray shows positive pneumonia), image re viewed Critical Care Time Critical Care Time: Yes Total Critical Care Time: 31 Disposition Clinical Impression: Weakness, Pneumonia, Altered mental status, Hypoxia, Coronavirus infection, Fever, UTI (urinary tract infection), Sepsis, Cerebrovascular accident (CVA), Transient cerebral ischemia, GBM (glioblastoma multiforme) Disposition: ADMITTED IP TO THIS HOSP Condition: Serious Is patient prescribed a controlled substance at d/c from ED?: No Time of Disposition: 18:30
[2022-12-26 17:16] LABS: Basophils % (A) 0 %; Eosinophils # (A) 0.1 k/uL (0-0.7); Eosinophils % (A) 1 %; HCT 44.9 % (39.0-53.0); HGB 14.9 gm/dL (13.0-17.5); Lymphocytes # (A) 0.4 k/uL (1.0-4.8); Lymphocytes % (A) 5 %; MCH 29.6 pg (25.0-35.0); MCHC 33.1 g/dL (31.0-37.0); MCV 89.4 fL (80.0-100.0); Mean Platelet Volume 7.4; Monocytes # (A) 0.6 k/uL (0-1.0); Monocytes % (A) 7 %; Neutrophils # (A) 7.5 k/uL (1.3-7.7); Neutrophils % (A) 85 %; Platelet Count 291 k/uL (150-450); RBC 5.02 m/uL (4.30-5.90); RDW 13.5 % (11.5-15.5); WBC 8.8 k/uL (3.8-10.6)
[2022-12-26 17:18] LABS: Partial Thromboplastin Time 22.3 sec (22.0-30.0); Prothrombin Time 10.2 sec (9.0-12.0)
[2022-12-26] MEDS ORDERED: ONDANSETRON 4 MG/2 ML VIAL IVP STA (17:30)
[2022-12-26 17:35] LABS: ALT 15 U/L (4-49); AST 19 U/L (17-59); African American GFR (CKD) >90 (>60 ml/min/1.73 sqM); Albumin 4.1 g/dL (3.5-5.0); Alkaline Phosphatase 54 U/L (38-126); Anion Gap 8 mmol/L; Blood Urea Nitrogen 21 mg/dL (9-20); Calcium 9.1 mg/dL (8.4-10.2); Carbon Dioxide 28 mmol/L (22-30); Chloride 101 mmol/L (98-107); Creatine Kinase 51 U/L (55-170); Glucose 111 mg/dL (74-99); Non-African American GFR(CKD) >90 (>60 ml/min/1.73 sqM); Potassium 4.3 mmol/L (3.5-5.1); Sodium 137 mmol/L (137-145); Total Bilirubin 0.4 mg/dL (0.2-1.3); Total Protein 6.7 g/dL (6.3-8.2)
--- NOTE | 2022-12-26 17:53 | CT ---
EXAMINATION TYPE: CT brain wo con for TPA CT DLP: 1157.6 mGycm, Automated exposure control for dose reduction was used. DATE OF EXAM: 12/26/2022 5:28 PM COMPARISON: CT 01/30/2022., MRI brain 10/03/2022 CLINICAL INDICATION:Male, 57 years old with history of Neuro deficit, acute, stroke suspected, ams, c va TECHNIQUE: Brain: Axial CT images of the brain were obtained with coronal and sagittal reformats created and rev iewed. Contrast used: None. Oral contrast used: None. FINDINGS: Brain: Extra-axial spaces: No abnormal extra-axial fluid collections. Ventricular system: Within normal limits Cerebral parenchyma: Posttreatment changes to the left parietal region. High density nodules/small ar eas are seen scattered throughout this area and within thee left centrum semiovale No acute intrapare nchymal hemorrhage or mass effect. The fagan-white junction is well differentiated. Scattered hypoatt enuating areas are seen within the white matter. Cerebellum: Unremarkable. Mass effect: No evidence of midline shift. Intracranial vasculature: Atherosclerotic calcifications of the intracranial vessels. Soft tissues: Normal. Calvarium/osseous structures: No depressed skull fracture. Paranasal sinuses and mastoid air cells: Mild scattered paranasal sinus disease, posttreatment change s to the skull. Visualized orbits: Orbital contents are intact. IMPRESSION: 1. Posttreatment changes with high density foci within the surgical bed and within the left centrum semiovale which could represent small hemorrhages versus calcification. These are not seen on prior C T 01/30/2022 and some of the areas do not show as susceptibility weighted imaging blooming artifact on prior MRI 10/03/2022 suggesting new finding from 10/03/2022. 2. Nonspecific white matter changes as seen on priors.
--- NOTE | 2022-12-26 17:56 | XR ---
EXAMINATION TYPE: XR chest 1V DATE OF EXAM: 12/26/2022 5:37 PM COMPARISON: Chest radiographs from 01/30/2022 TECHNIQUE: XR chest 1V Frontal view of the chest. CLINICAL INDICATION:Male, 57 years old with history of ams; FINDINGS: Lungs/Pleura: Right middle lobe airspace opacities. There is no evidence of pleural effusion, focal c onsolidation, or pneumothorax. Pulmonary vascularity: Unremarkable. Heart/mediastinum: Cardiomediastinal silhouette is unremarkable. Musculoskeletal: No acute osseous pathology. IMPRESSION: Right middle lobe airspace opacities correlate for pneumonia.
--- NOTE | 2022-12-26 17:59 | CT ---
EXAMINATION TYPE: CT angio head neck CT DLP: 468.3 mGycm, Automated exposure control for dose reduction was used. DATE OF EXAM: 12/26/2022 5:49 PM COMPARISON: CT same day. CLINICAL INDICATION:Male, 57 years old with history of Neuro deficit, acute, stroke suspected; PHH, c va TECHNIQUE: Axially acquired helical CT angiogram of the head and neck was obtained with contrast. Axi al images are supplemented with 3D reconstructions [facility] NASCET criteria used. Contrast used:65cc mL of Isovue 370 with IV Contrast, Oral contrast used: None. FINDINGS: CTA HEAD: No evidence of acute intracranial hemorrhage, mass effect, or midline shift. The ventricles, sulci, a nd cisterns are unremarkable. The visualized portions of the internal carotid arteries, middle cerebral arteries, anterior cerebral arteries, and posterior cerebral arteries are patent. Consultations of the intracranial internal car otid arteries. origins of the posterior cerebral arteries. Postsurgical changes in skull with posttreatment changes left posterior parietal skull as described o n prior CT. The basilar and vertebral arteries are patent. CTA NECK: Right Carotid System: The common carotid artery and external carotid artery are patent. The carotid bifurcation demonstrate s no evidence of hemodynamically significant stenosis. The remaining portions of the internal carotid artery demonstrate normal size without significant narrowing. Left Carotid System: The common carotid artery and external carotid artery are patent. The carotid bifurcation demonstrate s no evidence of hemodynamically significant stenosis. The remaining portions of the internal carotid artery demonstrate normal size without significant narrowing. Vertebral arteries are patent without evidence hemodynamically significant stenosis. There is a two-vessel aortic arch. The origins of the great vessels are patent. No evidence of hemody namically significant stenosis. Upper thorax: IMPRESSION: 1. No evidence of dissection of the cervical internal carotid arteries or vertebral arteries or any e vidence of significant stenosis at the carotid bifurcations. 2. No evidence of intracranial high-grade stenosis or intracranial aneurysm.
[2022-12-26] MEDS ORDERED: AZITHROMYCIN 500 MG in SODIUM CHLORIDE 0.9% 250 ML IVPB STA (18:25)
[2022-12-26] MEDS ORDERED: PROCHLORPERAZINE INJ 10 MG/2 ML VIAL IVP PRN (18:38)
[2022-12-26] MEDS ORDERED: PROCHLORPERAZINE INJ 10 MG/2 ML VIAL IVP STA (18:38)
[2022-12-26] MEDS ORDERED: ONDANSETRON 4 MG/2 ML VIAL IVP PRN (18:43)
[2022-12-26] MEDS ORDERED: MORPHINE SULFATE 4 MG/ML SYRINGE IV PRN (18:43)
[2022-12-26] MEDS ORDERED: NALOXONE 0.4 MG/ML 1 ML VIAL IV PRN (18:43)
[2022-12-26] MEDS ORDERED: IPRATROPIUM-ALBUTEROL 3 ML NEB INHALATION PRN (18:43)
[2022-12-26] MEDS ORDERED: ACETAMINOPHEN IV (For NPO) 1,000 MG in EMPTY BAG 1 BAG IVPB STA (18:53)
[2022-12-26] MEDS: SODIUM CHLORIDE 0.9% 1,000 ML IV SCH (19:03)
[2022-12-26] MEDS ORDERED: levETIRAcetam IV 500 MG/5 ML VIAL IVP STA (19:05)
[2022-12-26] MEDS ORDERED: LORazepam 2 MG/ML INJ IV STA (19:08)
[2022-12-26] MEDS ORDERED: IBUPROFEN IV 600 MG in SODIUM CHLORIDE 0.9% 100 ML IV ONE (19:30)
[2022-12-26 19:37] LABS: Appearance,Urine Cloudy (Clear); Bacteria,Urine Rare /hpf; Bilirubin,Urine Negative (Negative); Blood,Urine Negative (Negative); Color,Urine Yellow; Glucose,Urine (UA) Negative (Negative); Ketones,Urine Negative (Negative); Leukocyte Esterase,Urine Large (Negative); Mucus,Urine Occasional /hpf; Nitrite,Urine Positive (Negative); PH, Urine 6.5 (5.0-8.0); Protein,Urine Trace (Negative); RBC,Urine 6 /hpf (0-5); Specific Gravity,Urine 1.029 (1.001-1.035); Squamous Epithelial Cell,Urine <1 /hpf (0-4); Urobilinogen,Urine <2.0 mg/dL (<2.0); WBC,Urine >182 /hpf (0-5)
[2022-12-26 19:42] LABS: Amphetamine Screen,Urine Not Detected (NotDetected); Barbiturate Screen,Urine Not Detected (NotDetected); Benzodiazepines Screen,Urine Not Detected (NotDetected); Cocaine Screen,Urine Not Detected (NotDetected); Methadone Screen, Urine Not Detected (NotDetected); Opiate Screen,Urine Not Detected (NotDetected); Oxycodone Screen, Urine Not Detected (NotDetected); Phencyclidine Screen,Urine Not Detected (NotDetected); Tricyclic Antidepressant,Urine Not Detected (NotDetected); Urn Cannabinoid Scrn Not Detected (NotDetected)
[2022-12-26 22:18] LABS: Glucose,Whole Blood 137 mg/dL (70-110)
--- NOTE | 2022-12-26 23:42 | P.HPIM ---
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 Castillo, chronic urinary retention requiring intermittent self catheterizations who was brought into the emergency room by his for lethargy and word finding difficulty. The history is provided by the at the bedside. She reports that the patient had been in his usual state of health until this morning at around 11 am. She reports that they were at a wedding over the past few days and that he had been walking and talking well and went to take a nap at around 11 AM after he stated that he does not feel well. When he woke up from the nap at around 2 PM, she noticed that he had generalized weakness possibly greater on the right side, with confusion, lethargy, and difficulty in word finding. The patient was somnolent and thereby did not provide any history. In the emergency room, chest x-ray revealed right middle lobe airspace opacities concerning for pneumonia. CT angiogram head and neck revealed no acute abnormalities. CT brain revealed post-treatment changes with a high-density foci within the surgical bed which could represent small hemorrhages versus calcification, new from prior. EKG revealed sinus rhythm at [address]/T-wave changes noted as reviewed by me. Laboratory evaluation was remarkable for d-dimer of 1.50, BUN 21, creatinine 0.86, glucose 111, creatine kinase 51, troponin less than 0.012, and coronavirus PCR positive. Vital signs were reviewed with T-max 100.9F, pulse 105, BP 129/72, and SpO2 93% on room air. ED documentation reviewed and case discussed with ED provider. They provider reports that the case was discussed with neurologist superintendent communications who felt that the patient may be having seizures despite being on prophylactic antiepileptic Keppra. The patient was given Ativan 1 mg and additional 1.5 g of Keppra as he had not received his nightly dose. The neurologist further recommended an MRI and EEG. Review of systems: Pertinent positives and negatives as discussed in HPI, a complete review of systems was performed and all other systems are negative. Physical examination: Vital signs reviewed General: Somewhat chronically ill-appearing male, no distress, appears at stated age, normal weight Derm: no unusual rashes/lesions, warm Head: atraumatic, normocephalic, symmetric Eyes: anicteric sclera, pupils equal round reactive to light ENT: Nose and ears atraumatic Neck: No cervical lymphadenopathy, trachea midline, supple Mouth: no lip lesion, mucus membranes moist Cardiovascular: S1S2 reg, no murmur, positive dorsalis pedis pulse bilateral, no edema Lungs: CTA bilateral, no rhonchi, no rales, no accessory muscle use Abdominal: soft, no rigidity, no guarding Ext: no gross muscle atrophy, no contractures, unable to fully assess trend this patient is somnolent and not following directions Neuro: Unable to fully assess due to patient's mental status, the patient is moving all extremities grossly following rigorous tactile stimuli Psych: Somnolent, groans to sternal rub Assessment: Altered mental status, unclear etiology, may be due to underlying seizure with history of glioblatoma multiforme Right middle lobe pneumonia, possibly secondary to aspiration COVID-19 PCR positive Elevated d-dimer Abnormal UA Imaging: In the emergency room, chest x-ray revealed right middle lobe airspace opacities concerning for pneumonia. CT angiogram head and neck revealed no acute abnormalities. CT brain revealed post-treatment changes with a high-density foci within the surgical bed which could represent small hemorrhages versus calcification, new from prior. EKG revealed sinus rhythm at [address]/T-wave changes noted as reviewed by me. Data Review: aboratory evaluation was remarkable for d-dimer of 1.50, BUN 21, creatinine 0.86, glucose 111, creatine kinase 51, troponin less than 0.012, and coronavirus PCR positive. Vital signs were reviewed with T-max 100.9F, pulse 105, BP 129/72, and SpO2 93% on room air. Plan: Continue with neuro checks. Follow-up EEG and MRI brain Neurology and radiation oncology consulted Murphy catheter initiated Start patient on Unasyn 1.5 g every 6 hourly. Follow up blood and sputum cultures Patient does not currently appear to have an atypical pneumonia presentation CT angiogram chest PE study ordered DVT prophylaxis: Heparin subcu The patient is admitted with an anticipated greater than 2 midnight stay for evaluation of altered mental status CODE STATUS: Full Code Discussed with: Anticipated discharge place: Home Past Medical History Past Medical History: No Reported History History of Any Multi-Drug Resistant Organisms: None Reported Past Surgical History: No Surgical Hx Reported Past Psychological History: No Psychological Hx Reported Smoking Status: Never smoker Past Alcohol Use History: Occasional Past Drug Use History: None Reported - Past Family History Mother Family Medical History: Unable to Obtain (due to patient's mental status) Medications and Allergies Home Medications Medication Instructions Recorded Confirmed Type Tamsulosin HCl [Flomax] 0.8 mg PO HS 01/30/22 12/26/22 History Finasteride [Proscar] 5 mg PO HS 12/26/22 12/26/22 History Ondansetron [Zofran] 4 - 8 mg PO Q8H PRN 12/26/22 12/26/22 History Temozolomide [Temodar] 250 mg PO DIRECTED 12/26/22 12/26/22 History levETIRAcetam [Keppra] 1,000 mg PO BID 12/26/22 12/26/22 History Allergies Allergy/AdvReac Type Severity Reaction Status Date / Time No Known Allergies Allergy Verified 12/26/22 19:26 Physical Exam Vitals: Vital Signs Temp Pulse Pulse Resp BP BP Pulse Ox 12/26/22 22:06 99.5 F 82 12 104/58 92 L 12/26/22 21:19 86 18 106/66 95 12/26/22 19:29 101 H 18 138/84 97 12/26/22 18:50 100.9 F H 12/26/22 18:23 109 H 18 145/97 97 12/26/22 17:23 105 H 18 152/94 98 12/26/22 17:08 104 H 18 161/98 99 12/26/22 16:53 111 H 18 157/101 99 12/26/22 16:38 96 18 135/88 90 L 12/26/22 16:32 108 H 97 12/26/22 16:26 98.0 F 105 H 20 129/72 93 L Intake and Output 12/26/22 12/26/22 12/27/22 14:59 22:59 06:59 Output Total 800 Balance -800 Output: Urine 800 Other: Weight 66.224 kg Results CBC & Chem 7: 12/26/22 16:48 12/26/22 16:48 Labs: Abnormal Lab Results - Last 24 Hours (Table) 12/26/22 12/26/22 12/26/22 Range/Units 16:48 16:48 16:48 Lymphocytes # 0.4 L (1.0-4.8) k/uL D-Dimer (<0.60) mg/L FEU BUN 21 H (9-20) mg/dL Glucose 111 H (74-99) mg/dL POC Glucose (mg/dL) (70-110) mg/dL Creatine Kinase 51 L (55-170) U/L Urine Protein Trace H (Negative) Ur Leukocyte Esterase Large H (Negative) Urine RBC 6 H (0-5) /hpf Urine WBC >182 H (0-5) /hpf Urine Bacteria Rare H (None) /hpf Urine Mucus Occasional H (None) /hpf SARS-CoV-2 (PCR) (Not Detectd) 12/26/22 12/26/22 12/26/22 Range/Units 16:48 16:50 19:01 Lymphocytes # (1.0-4.8) k/uL D-Dimer 1.50 H (<0.60) mg/L FEU BUN (9-20) mg/dL Glucose (74-99) mg/dL POC Glucose (mg/dL) 116 H (70-110) mg/dL Creatine Kinase (55-170) U/L Urine Protein (Negative) Ur Leukocyte Esterase (Negative) Urine RBC (0-5) /hpf Urine WBC (0-5) /hpf Urine Bacteria (None) /hpf Urine Mucus (None) /hpf SARS-CoV-2 (PCR) Detected A (Not Detectd) 12/26/22 Range/Units 22:09 Lymphocytes # (1.0-4.8) k/uL D-Dimer (<0.60) mg/L FEU BUN (9-20) mg/dL Glucose (74-99) mg/dL POC Glucose (mg/dL) 137 H (70-110) mg/dL Creatine Kinase (55-170) U/L Urine Protein (Negative) Ur Leukocyte Esterase (Negative) Urine RBC (0-5) /hpf Urine WBC (0-5) /hpf Urine Bacteria (None) /hpf Urine Mucus (None) /hpf SARS-CoV-2 (PCR) (Not Detectd)
--- NOTE | 2022-12-27 00:33 | CT ---
EXAM: CT Angiography Chest With Intravenous Contrast CLINICAL HISTORY: R/o PE TECHNIQUE: Axial computed tomographic angiography images of the chest with intravenous contrast. CTDI is 10 mGy and DLP is 359.7 mGy-cm. This CT exam was performed using one or more of the following dose reduction techniques: automated exposure control, adjustment of the mA and/or kV according to patient size, and/or use of iterative reconstruction technique. MIP reconstructed images were created and reviewed. COMPARISON: No relevant prior studies available. FINDINGS: Pulmonary arteries: There is suboptimal opacification of the pulmonary arteries. As visualized, no pulmonary emboli are identified. Aorta: No acute findings. No thoracic aortic aneurysm. Lungs: Extensive infiltration of the left lower lobe. No mass. Pleural space: Unremarkable. No significant effusion. No pneumothorax. Heart: Unremarkable. No cardiomegaly. No significant pericardial effusion. No evidence of RV dysfunction. Bones/joints: No acute fracture. No dislocation. Soft tissues: Unremarkable. Lymph nodes: Unremarkable. No enlarged lymph nodes. IMPRESSION: Extensive infiltration in the left lower lobe likely representing pneumonia. No pulmonary emboli identified.
[2022-12-27] MEDS: AMPICILLIN-SULBACTAM 1.5 GM in SODIUM CHLORIDE 0.9% 50 ML IVPB SCH ×5 (00:56→23:18)
[2022-12-27] MEDS: HEPARIN SODIUM,PORCINE/PF 5,000 UNIT/0.5 ML SYRINGE SQ SCH ×2 (03:08→08:59)
[2022-12-27 06:12] LABS: Glucose,Whole Blood 99 mg/dL (70-110)
[2022-12-27] MEDS: levETIRAcetam IV 500 MG/5 ML VIAL IVP SCH ×2 (07:44→17:19)
--- NOTE | 2022-12-27 07:59 | P.PN ---
Subjective Progress Note Date: 12/27/22 Patient is a 57-year-old male with glioblastoma multiforme diagnosed January 2022 status post resection, chemotherapy, and radiation who is currently following with Dr. Castillo and requires clean intermittent self-catheterization who presented to the ER due to lethargy and word finding difficulty. Called by nursing as patient vomited brown substance this morning. Stat Head CT ordered. Patient seen and examined at bedside. He is having a slight headache today which is unusual for him and feels slightly lightheaded. He was having some abdominal pain which feels better after vomiting. He denies any shortness of breath area Vital signs reviewed General: nontoxic, no distress, appears at stated age Cardiovascular: S1S2 reg, no murmur, positive posterior tibial pulse bilateral, Lungs: Coarse breath sounds bilateral, no rhonchi, no rales , no accessory muscle use Abdominal: soft, nontender to palpation, no guarding, no appreciable organomegaly Ext: no gross muscle atrophy, no edema b/l lower extremities, no contractures Neuro: CN II-XI grossly intact, no focal neuro deficits Psych: Alert, oriented, appropriate affect Assessment: Altered mentation-possible seizure activity versus extension of glioblastoma multiforme on versus related to pneumonia Left lower lobe pneumonia, possible bacterial infection vs COVID COVID-19 infection Elevated d-dimer Imaging: CTA chest-extensive infiltration of the left lower lobe likely representing pneumonia, no pulmonary embolism CT head from 12/27 reviewed-consistent with CT head from 12/26 and possible punctate hemorrhages with pos-tsurgical changes of GBM. Data Review: Vitals reviewed pulse 106, blood pressure 128/86, O2 sat 96% on room air and a T-max since admission 100.9 Labs reviewed from today and remarkable for glucose of 116. CBC remains normal. Plan: - Ampicillin sulbactam 1.5 g every 6 hours - Await formal neurology recommendations. Patient was given Ativan yesterday is loaded with Keppra, continue Keppra thousand milligrams IV every 12 hours - hold oral Tozolomide - Consult radiation and medical oncology - start Dexamethasone 6 mg IV daily for COVID - Consult Pulmonary - Check pro calcitonin to determine if there is a component of bacterial pneumonia. - Hold heparin until seen by neurology to ensure it is safe to resume giving possible punctate hemorrhages on CT head - Await MRI brain and EEG DVT prophylaxis: SCDs Discussed with: Patient and nursing Anticipated discharge date: Pending Clinical Course Anticipated discharge place: Pending Clinical Course This dictation was prepared using [employer] voice recognition software. Though every attempt is made to correct errors during dictation some may still exist. Objective - Vital Signs Vital signs: Vital Signs Temp 98.1 F 12/26/22 23:40 Pulse 106 H 12/27/22 03:32 Resp 14 12/27/22 03:32 BP 128/86 12/27/22 03:32 Pulse Ox 96 12/27/22 03:32 FiO2 Intake & Output 12/26/22 12/27/22 12/27/22 18:59 06:59 18:59 Output Total 1350 Balance -1350 Weight 67.5 kg 67.5 kg Output: Urine 1350 Other: Voiding Method Indwelling Catheter - Labs CBC & Chem 7: 12/27/22 08:18 12/27/22 08:18 Labs: Abnormal Lab Results - Last 24 Hours (Table) 12/26/22 12/26/22 12/26/22 Range/Units 16:48 16:48 16:48 Lymphocytes # 0.4 L (1.0-4.8) k/uL D-Dimer (<0.60) mg/L FEU BUN 21 H (9-20) mg/dL Glucose 111 H (74-99) mg/dL POC Glucose (mg/dL) (70-110) mg/dL Creatine Kinase 51 L (55-170) U/L Urine Protein Trace H (Negative) Ur Leukocyte Esterase Large H (Negative) Urine RBC 6 H (0-5) /hpf Urine WBC >182 H (0-5) /hpf Urine Bacteria Rare H (None) /hpf Urine Mucus Occasional H (None) /hpf SARS-CoV-2 (PCR) (Not Detectd) 12/26/22 12/26/22 12/26/22 Range/Units 16:48 16:50 19:01 Lymphocytes # (1.0-4.8) k/uL D-Dimer 1.50 H (<0.60) mg/L FEU BUN (9-20) mg/dL Glucose (74-99) mg/dL POC Glucose (mg/dL) 116 H (70-110) mg/dL Creatine Kinase (55-170) U/L Urine Protein (Negative) Ur Leukocyte Esterase (Negative) Urine RBC (0-5) /hpf Urine WBC (0-5) /hpf Urine Bacteria (None) /hpf Urine Mucus (None) /hpf SARS-CoV-2 (PCR) Detected A (Not Detectd) 12/26/22 Range/Units 22:09 Lymphocytes # (1.0-4.8) k/uL D-Dimer (<0.60) mg/L FEU BUN (9-20) mg/dL Glucose (74-99) mg/dL POC Glucose (mg/dL) 137 H (70-110) mg/dL Creatine Kinase (55-170) U/L Urine Protein (Negative) Ur Leukocyte Esterase (Negative) Urine RBC (0-5) /hpf Urine WBC (0-5) /hpf Urine Bacteria (None) /hpf Urine Mucus (None) /hpf SARS-CoV-2 (PCR) (Not Detectd)
[2022-12-27] MEDS ORDERED: ALBUTEROL HFA INHALER INHALATION PRN (08:22)
[2022-12-27 08:46] LABS: Basophils % (A) 0 %; Eosinophils % (A) 0 %; HGB 13.6 gm/dL (13.0-17.5); Lymphocytes # (A) 0.4 k/uL (1.0-4.8); Lymphocytes % (A) 4 %; MCH 29.9 pg (25.0-35.0); MCHC 32.3 g/dL (31.0-37.0); MCV 92.7 fL (80.0-100.0); Mean Platelet Volume 6.9; Monocytes # (A) 0.6 k/uL (0-1.0); Monocytes % (A) 7 %; Neutrophils # (A) 7.6 k/uL (1.3-7.7); Neutrophils % (A) 87 %; Platelet Count 273 k/uL (150-450); RBC 4.53 m/uL (4.30-5.90); RDW 13.5 % (11.5-15.5); WBC 8.8 k/uL (3.8-10.6)
[2022-12-27] MEDS: SODIUM CHLORIDE 0.9% 1,000 ML IV SCH (08:52)
[2022-12-27] MEDS ORDERED: PANTOPRAZOLE 40 MG/10 ML VIAL IV SCH (09:00)
[2022-12-27 09:07] LABS: ALT 36 U/L (4-49); AST 34 U/L (17-59); African American GFR (CKD) >90 (>60 ml/min/1.73 sqM); Albumin 3.5 g/dL (3.5-5.0); Alkaline Phosphatase 50 U/L (38-126); Anion Gap 7 mmol/L; Blood Urea Nitrogen 17 mg/dL (9-20); Calcium 8.4 mg/dL (8.4-10.2); Carbon Dioxide 27 mmol/L (22-30); Chloride 103 mmol/L (98-107); Glucose 116 mg/dL (74-99); Magnesium 1.9 mg/dL (1.6-2.3); Non-African American GFR(CKD) >90 (>60 ml/min/1.73 sqM); Phosphorus 2.9 mg/dL (2.5-4.5); Potassium 4.1 mmol/L (3.5-5.1); Sodium 137 mmol/L (137-145); Total Bilirubin 0.3 mg/dL (0.2-1.3); Total Protein 5.9 g/dL (6.3-8.2)
--- NOTE | 2022-12-27 10:08 | CT ---
EXAMINATION TYPE: CT brain wo con CT DLP: 1217.6 mGycm, Automated exposure control for dose reduction was used. DATE OF EXAM: 12/27/2022 9:38 AM COMPARISON: Prior CT Brain from 12/26/2022, 01/30/2022. CLINICAL INDICATION:Male, 57 years old with history of History of surgery, AMS, now vomiting., AMS, n ow vomiting TECHNIQUE: Brain: Multiple axial CT images of the brain were obtained without IV contrast. Coronal and sagittal reformats reviewed. FINDINGS: Brain: Extra-axial spaces: No abnormal extra-axial fluid collections. Ventricular system: Mildly prominent diffusely. Cerebral parenchyma: Posttreatment changes to the left parietal region with encephalomalacia demonstr ated. Similar high density foci of scattered throughout this area within the left centrum semiovale. The fagan-white junction is well differentiated. Scattered hypoattenuating areas are seen within the w mike matter. Cerebellum: Unremarkable. Mass effect: No evidence of midline shift. Intracranial vasculature: Atherosclerotic calcifications of the intracranial vessels. Soft tissues: Normal. Calvarium/osseous structures: No depressed skull fracture. Posttreatment changes to the left posterio r skull. Paranasal sinuses and mastoid air cells: Mastoid air cells are clear. Moderate mucosal thickening of the left sphenoid and left maxillary sinuses with mild mucosal thickening of the ethmoid sinuses. Visualized orbits: Orbital contents are intact. IMPRESSION: 1. Posttreatment changes with unchanged high density foci within the left parietal surgical bed and within the left centrum semiovale again demonstrated which could represent small unchanged hemorrhage versus calcification. 2. Nonspecific white matter changes as seen on priors. 3. Similar nonspecific mildly prominent diffuse ventricular system dilatation.
--- NOTE | 2022-12-27 12:44 | MR ---
EXAMINATION TYPE: MR brain wo/w con DATE OF EXAM: 12/27/2022 COMPARISON: 10/03/[address] 12/26/2022 HISTORY: 57-year-old male aphasia, Right sided weakness, hx brain tumor. TECHNIQUE: Multiplanar, multisequence images of the brain and brainstem were acquired before and aft er administration of 6.5 mL IV Gadavist. Diffusion weighted imaging is performed. FINDINGS: Redemonstrated left posterior parietal craniotomy flap with underlying resection cavity measuring pita roximately 4.7 cm craniocaudal and 2.3 cm wide. There is extensive heterogeneity along the margin of the resection cavity including areas of bright T 1-weighted signal suggesting hemorrhagic debris. T2 shows some incomplete hemosiderin ring as seen pr eviously. There is also some irregular postcontrast enhancement such as along the inferior and lateral margin. Overall pattern of enhancement is similar to prior exam. In the interval, there has been some development of nodular soft tissue along the left lateral margin measuring 1.7 x 1.5 cm. This shows some peripheral enhancement, low T1-weighted signal, and restrict ed diffusion. Overall surrounding T2 bright white matter change extending to the posterior left frontal lobe and ar ound the atrium of the left lateral ventricle remains unchanged. Moderate scattered burden of chronic small vessel ischemic disease. No evidence for acute infarction remote from the region of prior surgery. No midline shift, herniatio n, or effacement of basal cisterns. Mild ventriculomegaly is unchanged, probably in part due to central cerebral atrophy. No new enhancing intracranial lesions are seen. Dural venous sinuses are patent. Midline structures demonstrate normal morphology. The craniocervical junction is normal. Moderate to severe mucosal thickening ethmoid air cells and left maxillary sinus. Globes are intact. IMPRESSION: 1. Posterior left parietal lobe resection cavity redemonstrated. The cavity is filled with hemorrhagi c material and fluid. Overall irregular postcontrast enhancement along the inferior and lateral maddy ns as well as the surrounding T2 bright white matter changes extending forward into the posterior lef t frontal lobe is similar. 2. In the interval, there has been the development of some nodular density along the left lateral mar gin of the resection cavity measuring 1.7 x 1.5 cm. This shows peripheral enhancement, low T1-weighte d signal, and restricted diffusion. A small area of adjacent acutely infarcted cortex is possible. Lo rhiannon progression is felt to be less likely but not entirely excluded at this time. Ongoing follow-up r ecommended. 3. No evidence for acute infarct away from the patient's surgical site. 4. Development of moderate to severe paranasal sinus disease involving the ethmoid air cells and left maxillary sinus.
--- NOTE | 2022-12-27 14:37 | P.CNPUL ---
History of Present Illness Consult date: 12/27/22 Requesting physician: Ivonne Almaraz Reason for consult: pneumonia Chief complaint: Altered mental status and lethargy History of present illness: This is a 57-year-old white male, known history of glioblastoma multiforme, this was diagnosed in January of 2022, patient underwent resection, chemotherapy, and radiation treatment. He has chronic urinary retention requiring intermittent self-catheterization. Patient was brought into the ER yesterday with mostly symptoms of lethargy, difficulty expressing himself, more confusion, patient is actually a very poor historian, could not have much information from the patient himself, patient has no idea why he was brought into the hospital, he has no idea where he is, and he has no idea what year this is. At any rate part of the workup for his mental status change included a chest x-ray and CT of the chest. His CT of the chest is clearly consistent with left lower lobe extensive process/infiltrate. Hence this consult was initiated. Patient is again a poor historian, he is complaining of some cough, but could not elaborate any further denies being short of breath, no fever no chills no hemoptysis. MRI of the brain is very abnormal significant findings were noted related to his glioblastoma and previous surgery, patient was also found to have moderate to severe paranasal sinus disease involving the ethmoid air cells. And left maxillary sinus. I was consulted on this patient mostly because of his abnormal CT of the chest, and the findings are mostly consistent with pneumonia, could be community-acquired pneumonia or aspiration pneumonia. In addition to all of this patient was tested positive for COVID-19 infection. CBC showed no evidence of leukocytosis, his basic metabolic profile is normal, his d-dimer is a bit elevated to 1.50, urinalysis is suggestive of urinary tract infection, drug screen is negative. Review of Systems ROS unobtainable: due to mental status Past Medical History Past Medical History: No Reported History Additional Past Medical History / Comment(s): Brain cancer History of Any Multi-Drug Resistant Organisms: None Reported Past Surgical History: No Surgical Hx Reported Additional Past Surgical History / Comment(s): Brain surgery Past Psychological History: No Psychological Hx Reported Smoking Status: Never smoker Past Alcohol Use History: Occasional Past Drug Use History: None Reported - Past Family History Mother Family Medical History: Unable to Obtain (due to patient's mental status) Medications and Allergies Home Medications Medication Instructions Recorded Confirmed Type Tamsulosin HCl [Flomax] 0.8 mg PO HS 01/30/22 12/26/22 History Finasteride [Proscar] 5 mg PO HS 12/26/22 12/26/22 History Ondansetron [Zofran] 4 - 8 mg PO Q8H PRN 12/26/22 12/26/22 History Temozolomide [Temodar] 250 mg PO DIRECTED 12/26/22 12/26/22 History levETIRAcetam [Keppra] 1,000 mg PO BID 12/26/22 12/26/22 History Allergies Allergy/AdvReac Type Severity Reaction Status Date / Time No Known Allergies Allergy Verified 12/26/22 19:26 Physical Exam Vitals: Vital Signs Temp Pulse Pulse Resp BP BP Pulse Ox 12/27/22 13:14 89 12/27/22 12:54 99.0 F 89 20 110/74 96 12/27/22 08:45 92 12/27/22 08:37 99.6 F 92 20 127/80 95 12/27/22 03:32 106 H 14 128/86 96 12/27/22 01:05 90/52 12/26/22 23:40 98.1 F 60 14 93/55 97 12/26/22 22:06 99.5 F 82 12 104/58 92 L 12/26/22 21:19 86 18 106/66 95 12/26/22 19:29 101 H 18 138/84 97 12/26/22 18:50 100.9 F H 12/26/22 18:23 109 H 18 145/97 97 12/26/22 17:23 105 H 18 152/94 98 12/26/22 17:08 104 H 18 161/98 99 12/26/22 16:53 111 H 18 157/101 99 12/26/22 16:38 96 18 135/88 90 L 12/26/22 16:32 108 H 97 12/26/22 16:26 98.0 F 105 H 20 129/72 93 L Intake and Output 12/26/22 12/27/22 12/27/22 22:59 06:59 14:59 Intake Total 118 Output Total 605 380 5395 Balance -800 -550 -1082 Intake: Oral 118 Output: Urine 800 550 Emesis 1200 Other: Voiding Method Indwelling Catheter Indwelling Catheter Indwelling Catheter Weight 67.5 kg General: Revealed a 57-year-old white male, confused, not in distress. Head: atraumatic, normocephalic Eyes: anicteric sclera, pupils equal round reactive to light ENT: Nose and ears atraumatic Neck: No cervical lymphadenopathy, trachea midline, supple Mouth: Moist mucous membranes, unremarkable. Cardiovascular: Normal S1 and S2, no S3 gallop, no murmur. Lungs: Minimal fine crackles on the rhonchi at the left base, right side is clear. Abdominal: Soft nontender no megaly no rebound no guarding. Ext: No clubbing edema or cyanosis. Neuro: Patient has difficulty expressing himself, he seems to be confused, and oriented to place time or person. Psych: Normal mood, normal affect, but confused. Results - Laboratory Findings CBC and BMP: 12/27/22 08:18 12/27/22 08:18 PT/INR, D-dimer PT 10.2 sec (9.0-12.0) 12/26/22 16:48 INR 1.0 (<1.2) 12/26/22 16:48 D-Dimer 1.50 mg/L FEU (<0.60) H 12/26/22 16:48 Abnormal lab findings: Abnormal Labs 12/26/22 12/26/22 12/26/22 16:48 16:48 16:48 Lymphocytes # 0.4 L D-Dimer BUN 21 H Glucose 111 H POC Glucose (mg/dL) Creatine Kinase 51 L Total Protein Urine Protein Trace H Ur Leukocyte Esterase Large H Urine RBC 6 H Urine WBC >182 H Urine Bacteria Rare H Urine Mucus Occasional H SARS-CoV-2 (PCR) 12/26/22 12/26/22 12/26/22 16:48 16:50 19:01 Lymphocytes # D-Dimer 1.50 H BUN Glucose POC Glucose (mg/dL) 116 H Creatine Kinase Total Protein Urine Protein Ur Leukocyte Esterase Urine RBC Urine WBC Urine Bacteria Urine Mucus SARS-CoV-2 (PCR) Detected A 12/26/22 12/27/22 12/27/22 22:09 08:18 08:18 Lymphocytes # 0.4 L D-Dimer BUN Glucose 116 H POC Glucose (mg/dL) 137 H Creatine Kinase Total Protein 5.9 L Urine Protein Ur Leukocyte Esterase Urine RBC Urine WBC Urine Bacteria Urine Mucus SARS-CoV-2 (PCR) - Diagnostic Findings Chest x-ray: image reviewed CT scan - chest: image reviewed (As noted in HPI) Assessment and Plan Assessment: Impression: Altered mental status, most likely secondary to his underlying glioblastoma multiform be and possible seizures Strongly suspect aspiration pneumonia based on CT of the chest findings and considering his history Positive COVID-19 PCR Suspect chronic sinusitis Recommendation: I fully agree with the antibiotics/Unasyn COVID-19 cocktail, this is an incidental finding. Neurology to see on consultation. Check urine culture and blood cultures Continue GI and DVT prophylaxis We will continue to follow Time with Patient: Greater than 30
[2022-12-27] MEDS: DEXAMETHASONE SOD PHOSPHATE 10 MG/ML 1 ML VIAL IVP SCH (15:45)
--- NOTE | 2022-12-27 16:25 | P.CONS ---
History of Present Illness - Reason for Consult Consult date: 12/27/22 GBM Requesting physician: Yara Syed - Chief Complaint Altered mental status, Covid - History of Present Illness Mr. Sevilla is a 57-year-old patient we have been asked to see because of a history of GBM. He was able to give us some of the history, some is taken from the chart. GBM diagnosed January 2022, status post resection, chemo and radiation. He does not recall who his treating Medical Oncologist is but, he agrees that Dr. Castillo is his radiation oncologist. He does not remember the last time he followed up. He does report that he is on Temodar, 5 days, every 28 days. He reports that he should be starting a new cycle soon. He was brought to the ER for lethargy and difficulty speaking. This is been going on for about 1 day, patient had been pretty active in the previous days, CTA head and neck was negative, CT of the brain reported posttreatment changes, high-density foci within the surgical bed could represent small hemorrhages versus calcifications. CBC within normal limits, covid positive. When seen today patient does have difficulty finding words but, he answers appropriately, he admits that he is not remembering things well. Denies vom iting, chest pain, abdominal pain, he reports that he is continent of urine and stool, he normally is ambulatory. Review of Systems Review of systems is as stated in HPI, patient is having difficulty finding words Past Medical History Past Medical History: No Reported History, Cancer Additional Past Medical History / Comment(s): Brain cancer, BPH History of Any Multi-Drug Resistant Organisms: None Reported Past Surgical History: No Surgical Hx Reported Additional Past Surgical History / Comment(s): Brain surgery Past Psychological History: No Psychological Hx Reported Smoking Status: Never smoker Past Alcohol Use History: Occasional Past Drug Use History: None Reported - Past Family History Mother Family Medical History: Unable to Obtain (due to patient's mental status) Medications and Allergies Home Medications Medication Instructions Recorded Confirmed Type Tamsulosin HCl [Flomax] 0.8 mg PO HS 01/30/22 12/26/22 History Finasteride [Proscar] 5 mg PO HS 12/26/22 12/26/22 History Ondansetron [Zofran] 4 - 8 mg PO Q8H PRN 12/26/22 12/26/22 History Temozolomide [Temodar] 250 mg PO DIRECTED 12/26/22 12/26/22 History levETIRAcetam [Keppra] 1,000 mg PO BID 12/26/22 12/26/22 History Allergies Allergy/AdvReac Type Severity Reaction Status Date / Time No Known Allergies Allergy Verified 12/26/22 19:26 Physical Exam Vitals: Vital Signs Temp Pulse Pulse Resp BP BP Pulse Ox 12/27/22 15:11 99.8 F H 80 18 122/74 96 12/27/22 13:14 89 12/27/22 12:54 99.0 F 89 20 110/74 96 12/27/22 08:45 92 12/27/22 08:37 99.6 F 92 20 127/80 95 12/27/22 03:32 106 H 14 128/86 96 12/27/22 01:05 90/52 12/26/22 23:40 98.1 F 60 14 93/55 97 12/26/22 22:06 99.5 F 82 12 104/58 92 L 12/26/22 21:19 86 18 106/66 95 12/26/22 19:29 101 H 18 138/84 97 12/26/22 18:50 100.9 F H 12/26/22 18:23 109 H 18 145/97 97 12/26/22 17:23 105 H 18 152/94 98 12/26/22 17:08 104 H 18 161/98 99 12/26/22 16:53 111 H 18 157/101 99 12/26/22 16:38 96 18 135/88 90 L 12/26/22 16:32 108 H 97 12/26/22 16:26 98.0 F 105 H 20 129/72 93 L Intake and Output 12/27/22 12/27/22 12/27/22 06:59 14:59 22:59 Intake Total 118 Output Total 550 1200 575 Balance -165 -4774 -755 Intake: Oral 118 Output: Urine 550 575 Emesis 1200 Other: Voiding Method Indwelling Catheter Indwelling Catheter - Constitutional General appearance: average body habitus, cooperative, no acute distress - EENT Eyes: anicteric sclerae, EOMI ENT: hearing grossly normal, normal oropharynx - Neck Neck: no lymphadenopathy - Respiratory Respiratory: bilateral: CTA - Cardiovascular Rhythm: regular Heart sounds: normal: S1, S2 Abnormal Heart Sounds: no systolic murmur, no diastolic murmur, no rub, no S3 Gallop, no S4 Gallop, no click, no other leg Peripheral Edema: bilateral: None - Gastrointestinal General gastrointestinal: no absent bowel sounds, no decreased bowel sounds, no distended, no hepatomegaly, no hyperactive bowel sounds, normal bowel sounds, no organomegaly, no rigid, no scaphoid, soft, no splenomegaly, no tenderness, no umbilical hernia, no ventral hernia - Integumentary Integumentary: normal - Neurologic Expressive aphasia, depth perception-he reaches beyond target - Psychiatric Psychiatric: A&O x's 3, appropriate affect Results CBC & Chem 7: 12/27/22 08:18 12/27/22 08:18 Labs: Abnormal Lab Results - Last 24 Hours (Table) 12/26/22 12/26/22 12/26/22 Range/Units 16:48 16:48 16:48 Lymphocytes # 0.4 L (1.0-4.8) k/uL D-Dimer (<0.60) mg/L FEU BUN 21 H (9-20) mg/dL Glucose 111 H (74-99) mg/dL POC Glucose (mg/dL) (70-110) mg/dL Creatine Kinase 51 L (55-170) U/L Total Protein (6.3-8.2) g/dL Procalcitonin (0.02-0.09) ng/mL Urine Protein Trace H (Negative) Ur Leukocyte Esterase Large H (Negative) Urine RBC 6 H (0-5) /hpf Urine WBC >182 H (0-5) /hpf Urine Bacteria Rare H (None) /hpf Urine Mucus Occasional H (None) /hpf SARS-CoV-2 (PCR) (Not Detectd) 12/26/22 12/26/22 12/26/22 Range/Units 16:48 16:50 19:01 Lymphocytes # (1.0-4.8) k/uL D-Dimer 1.50 H (<0.60) mg/L FEU BUN (9-20) mg/dL Glucose (74-99) mg/dL POC Glucose (mg/dL) 116 H (70-110) mg/dL Creatine Kinase (55-170) U/L Total Protein (6.3-8.2) g/dL Procalcitonin (0.02-0.09) ng/mL Urine Protein (Negative) Ur Leukocyte Esterase (Negative) Urine RBC (0-5) /hpf Urine WBC (0-5) /hpf Urine Bacteria (None) /hpf Urine Mucus (None) /hpf SARS-CoV-2 (PCR) Detected A (Not Detectd) 12/26/22 12/27/22 12/27/22 Range/Units 22:09 08:18 08:18 Lymphocytes # 0.4 L (1.0-4.8) k/uL D-Dimer (<0.60) mg/L FEU BUN (9-20) mg/dL Glucose 116 H (74-99) mg/dL POC Glucose (mg/dL) 137 H (70-110) mg/dL Creatine Kinase (55-170) U/L Total Protein 5.9 L (6.3-8.2) g/dL Procalcitonin (0.02-0.09) ng/mL Urine Protein (Negative) Ur Leukocyte Esterase (Negative) Urine RBC (0-5) /hpf Urine WBC (0-5) /hpf Urine Bacteria (None) /hpf Urine Mucus (None) /hpf SARS-CoV-2 (PCR) (Not Detectd) 12/27/22 Range/Units 08:18 Lymphocytes # (1.0-4.8) k/uL D-Dimer (<0.60) mg/L FEU BUN (9-20) mg/dL Glucose (74-99) mg/dL POC Glucose (mg/dL) (70-110) mg/dL Creatine Kinase (55-170) U/L Total Protein (6.3-8.2) g/dL Procalcitonin 0.14 H (0.02-0.09) ng/mL Urine Protein (Negative) Ur Leukocyte Esterase (Negative) Urine RBC (0-5) /hpf Urine WBC (0-5) /hpf Urine Bacteria (None) /hpf Urine Mucus (None) /hpf SARS-CoV-2 (PCR) (Not Detectd) Chest x-ray: report reviewed CT Scan - head: report reviewed MRI - head: report reviewed Assessment and Plan (1) Coronavirus infection Current Visit: Yes Status: Acute Priority: High Code(s): B34.2 - CORONAVIRUS INFECTION, UNSPECIFIED SNOMED Code(s): 005017593 (2) Altered mental status Current Visit: Yes Status: Acute Priority: High Code(s): R41.82 - ALTERED MENTAL STATUS, UNSPECIFIED SNOMED Code(s): 002716960 (3) Weakness Current Visit: Yes Status: Acute Priority: High Code(s): R53.1 - WEAKNESS SNOMED Code(s): 20982250 (4) GBM (glioblastoma multiforme) Current Visit: Yes Status: Chronic Priority: Medium Code(s): C71.9 - MALIGNANT NEOPLASM OF BRAIN, UNSPECIFIED SNOMED Code(s): 142041658 Plan: Altered mental status and weakness -Suspect related to pneumonia/Covid infection, also urine suspicious for UTI. Defer management of the same to IM and Pulmonary GBM -Dr. Castillo has been consulted, will discuss with case with him. He will clarify treating Oncologist and more details about the case. -Oral Temodar to be held until patient has been treated adequately for pneum onia, completed and UTI Doctor attests: I performed a history and physical examination of this patient, developed impression and plan of care. Discussed with dictator. I agree with dictators note, documented as a scribe.
--- NOTE | 2022-12-27 20:32 | P.CNNES ---
History of Present Illness Consult date: 12/27/22 Requesting physician: Tom Woods Reason for Consult: Altered mental status History of Present Illness: Patient is a 57-year-old right-handed male , who has been diagnosed with GBM, undergoing chemotherapy with Temodar, who came to the hospital yesterday at 4:19 PM for altered mental status. Patient not able to provide appropriate history because of significant expressive aphasia related to his previous tumor resection. The nurse had spoken to patient's , who informed that patient does have residual aphasia from his previous brain surgery. They went to a wedding recently on the weekend. He was more tired and lethargic, more than usual and was also confused more than baseline after he returned back home from the wedding. Apparently people at the wedding were positive for Covid infection. Because of these symptoms he was brought to the hospital. At baseline patient walks with a walker independently. Patient's has reported that patient had a brain MRI performed not too long ago and was stable. Patient at present denies any headache or any pain anywhere. No recent breakthrough se izures have been reported. Patient's has noticed that he has been improved since he arrived to the hospital. He did have vomiting one time. Vital signs on arrival blood pressure 129/79, pulse rate 105, temperature 98.0. EKG shows sinus rhythm. CT head showed posttreatment changes with high density foci within the surgical bed and within the left centrum semiovale which could represent small hemorrhages versus calcification. These are not seen on prior CT 01/30/2022 and some of the areas do not show as susceptibility weighted imaging blooming artifact on prior MRI 10/03/2022 suggesting new finding from 10/03/2022. Nonspecific white matter changes are seen on priors. Similar non specific mild prominent diffuse ventricular system dilation. CTA of head and neck showed no evidence of dissection of the cervical internal carotid arteries or vertebral arteries or any evidence of significant stenosis at the carotid bifurcations. No evidence of intracranial high-grade stenosis or intracranial aneurysm. CTA of the chest showed extensive infiltration in the left lower lobe likely representing pneumonia. No pulmonary emboli. Blood test shows normal CBC, PT/PTT, normal CMP, CK 51, troponin negative, UA shows large amount of leukocyte esterase and 6 RBC and > 182 WBC. Rare bacteria. Patient was diagnosed with brain tumor after he presented to the hospital on 01/30/2022 with altered mental status. His computed tomography scan of the head revealed a brain mass. He was transferred to [facility], where he underwent surgery, followed by radiation and then getting chemotherapy with Temodar. His most recent chemotherapy was completed on 12/04/2022. Home medications include Keppra 1000 mg twice a day, Temodar 250 mg Zofran, Proscar and Flomax. Patient currently on Unasyn, was given 1 dose of azithromycin, and ceftriaxone in the ER. Patient given a bolus dose of Keppra 1500 mg IV 1 dose in the ER and now maintained on 1000 mg IV every 12 hours. Review of Systems ROS unobtainable: due to mental status Constitutional: Denies chills, Denies fever Eyes: right loss of peripheral vision (States he cannot see on the right unless he turns his head to the right.), right loss of vision Ears: bilateral: decreased hearing, deny: ear discharge, earache Ears, nose, mouth and throat: Denies headache, Denies sore throat Cardiovascular: Reports shortness of breath, Denies chest pain Respiratory: Reports cough, Reports excessive sputum Gastrointestinal: Reports nausea, Denies abdominal pain, Denies diarrhea, Denies vomiting Genitourinary: Reports incontinence, Denies dysuria Musculoskeletal: Denies myalgias, Denies neck pain Integumentary: Denies pruritus, Denies rash Neurological: Reports as per HPI Psychiatric: Reports difficulty concentrating, Reports memory loss Past Medical History Past Medical History: No Reported History Additional Past Medical History / Comment(s): Brain cancer History of Any Multi-Drug Resistant Organisms: None Reported Past Surgical History: No Surgical Hx Reported Additional Past Surgical History / Comment(s): Brain surgery Past Psychological History: No Psychological Hx Reported Smoking Status: Never smoker Past Alcohol Use History: Occasional Past Drug Use History: None Reported - Past Family History Mother Family Medical History: Unable to Obtain (due to patient's mental status) Medications and Allergies Home Medications Medication Instructions Recorded Confirmed Type Tamsulosin HCl [Flomax] 0.8 mg PO HS 01/30/22 12/26/22 History Finasteride [Proscar] 5 mg PO HS 12/26/22 12/26/22 History Ondansetron [Zofran] 4 - 8 mg PO Q8H PRN 12/26/22 12/26/22 History Temozolomide [Temodar] 250 mg PO DIRECTED 12/26/22 12/26/22 History levETIRAcetam [Keppra] 1,000 mg PO BID 12/26/22 12/26/22 History Allergies Allergy/AdvReac Type Severity Reaction Status Date / Time No Known Allergies Allergy Verified 12/26/22 19:26 Physical Examination - Vital Signs Vital Signs: Vital Signs Temp Pulse Pulse Resp BP BP Pulse Ox 12/27/22 08:45 92 12/27/22 08:37 99.6 F 92 20 127/80 95 12/27/22 03:32 106 H 14 128/86 96 12/27/22 01:05 90/52 12/26/22 23:40 98.1 F 60 14 93/55 97 12/26/22 22:06 99.5 F 82 12 104/58 92 L 12/26/22 21:19 86 18 106/66 95 12/26/22 19:29 101 H 18 138/84 97 12/26/22 18:50 100.9 F H 12/26/22 18:23 109 H 18 145/97 97 12/26/22 17:23 105 H 18 152/94 98 12/26/22 17:08 104 H 18 161/98 99 12/26/22 16:53 111 H 18 157/101 99 12/26/22 16:38 96 18 135/88 90 L 12/26/22 16:32 108 H 97 12/26/22 16:26 98.0 F 105 H 20 129/72 93 L Intake and Output 12/26/22 12/27/22 12/27/22 22:59 06:59 14:59 Intake Total 118 Output Total 812 521 4976 Balance -800 -550 -1082 Intake: Oral 118 Output: Urine 800 550 Emesis 1200 Other: Voiding Method Indwelling Catheter Indwelling Catheter Indwelling Catheter Weight 67.5 kg Patient is a middle aged male, in no acute distress. Patient is alert awake, appears slightly encephalopathic. Patient has significant receptive and some expressive aphasia. He perseverates on right/left. Sometimes he speaks phrases which makes sense like "I cannot see right unless I turn head to the right". He could not tell the current month or year or the city or state. He has significant expressive and receptive aphasia. He could not name any objects presented. He was able to look to the left for the window, the top for the ceiling and to the right for the door. However he would not point with his hands to any place. Attention, concentration and fund of knowledge is very limited because of aphasia and mentation. On cranial nerve examination, pupils are equal, round and reacting to light, visual osborn revealed right homonymous hemianopia. Extraocular muscles are intact with no nystagmus. Face is symmetric, tongue protrudes to the midline. Palatal elevation and sensation normal, hearing is significantly decreased and shoulder shrug normal, facial sensation normal. On muscle strength testing, there is no pronator drift and the strength is normal in arms and legs distally and proximally. Deep tendon reflexes are symmetric 1+ in the upper limbs, 2 in the lower limbs and plantars downgoing. Sensory to touch is equal with no neglect on double simultaneous stimulation. Cerebellar function showed no ataxia for [id number] testing. Tone and bulk of muscles normal. Gait deferred.. On general examination, there is no carotid bruit or murmur, S1-S2 audible. Chest is clear on consultation. Abdomen is soft nontender. No organomegaly, bowel sounds present. Peripheral pulses are present. No edema. Results - Laboratory Findings CBC and BMP: 12/27/22 08:18 12/27/22 08:18 Abnormal Lab Findings: Abnormal Labs 12/26/22 12/26/22 12/26/22 16:48 16:48 16:48 Lymphocytes # 0.4 L D-Dimer BUN 21 H Glucose 111 H POC Glucose (mg/dL) Creatine Kinase 51 L Total Protein Urine Protein Trace H Ur Leukocyte Esterase Large H Urine RBC 6 H Urine WBC >182 H Urine Bacteria Rare H Urine Mucus Occasional H SARS-CoV-2 (PCR) 12/26/22 12/26/22 12/26/22 16:48 16:50 19:01 Lymphocytes # D-Dimer 1.50 H BUN Glucose POC Glucose (mg/dL) 116 H Creatine Kinase Total Protein Urine Protein Ur Leukocyte Esterase Urine RBC Urine WBC Urine Bacteria Urine Mucus SARS-CoV-2 (PCR) Detected A 12/26/22 12/27/22 12/27/22 22:09 08:18 08:18 Lymphocytes # 0.4 L D-Dimer BUN Glucose 116 H POC Glucose (mg/dL) 137 H Creatine Kinase Total Protein 5.9 L Urine Protein Ur Leukocyte Esterase Urine RBC Urine WBC Urine Bacteria Urine Mucus SARS-CoV-2 (PCR) Assessment and Plan Assessment: * Altered mental status, likely due to metabolic encephalopathy due to reasons a s mentioned below. * Acute Covid-19 infection * Probable aspiration pneumonia * Probable acute UTI * History of GBM, status post resection, currently on chemotherapy with Temodar. * Pansinusitis Plan: * Patient underwent MRI of the brain, which revealed posterior left parietal lobe resection cavity redemonstrated. The cavities filled with hemorrhagic material and fluid. Overall regular post contrast enhancement along the inferior and lateral margins as well as the surrounding T2 bright white matter changes extending forward into the posterior left frontal lobe is similar. In the interval, there has been development of some nodular density along the left lateral margin of the resection cavity measuring 1.7 x 1.5 cm. This shows peripheral enhancement, low T1-weighted signal and restricted diffusion. A small area of adjacent acutely infarcted cortex is possible. Local progression is felt to be less likely but not entirely excluded at this time. Ongoing follow-up recommended. No evidence for an acute infarct. Development of moderate to severe paranasal sinus disease involving the ethmoid air cells and left maxillary sinus. I personally reviewed MRI, agree with the findings. * EEG was performed, which was abnormal due to #1: amplitude asymmetry with hi gher amplitude activity involving the left parietal region, suggestive of breach rhythm due to previous craniotomy defect. #2: intermittent sharp- appearing waves left parietal region, which may be related to #1, although underlying cortical irritability and tendency for seizure is also a possibilit y. No electrographic seizure was recorded. #3: background slowing, suggestive of mild to moderate encephalopathy. Clinical correlation is recommended. * Continue Keppra 1 g twice a day. * Oncology input appreciated. Await radiation oncology input. * Patient has probable aspiration pneumonia. MRI also revealed paranasal sinus disease. Patient has received 1 dose of ceftriaxone 2 g, and azithromycin. Patient currently maintained on Unasyn 1.5 g every 6 hours. Pulmonary medicine also on board. * Neurology will follow clinically. Thank you for the consult.
[2022-12-27] MEDS: FINASTERIDE 5 MG TAB PO SCH (20:46)
[2022-12-27] MEDS: TAMSULOSIN 0.4 MG CAP.ER.24H PO SCH (20:46)
--- NOTE | 2022-12-28 02:26 | EEG ---
ELECTROENCEPHALOGRAM REPORT PREAMBLE: This is a 57-year-old male with history of glioblastoma multiforme, came with altered mental status. CURRENT MEDICATIONS: 1. Keppra. 2. Dexamethasone. EEG FINDINGS: This is a 21-channel digital EEG recorded with video component, utilizing 10/20 international system with referential and bipolar montages. Background consists of moderately well-developed and regulated, predominantly mixed 4 to 6 hertz theta activity seen in bihemispheric region. Some mild intermittent suppression was seen. There is amplitude asymmetry with relatively higher amplitude activity seen in the left parietal region, consistent with breach rhythm due to craniotomy defect. Intermittent, sporadic, left parietal sharp waves were seen, which may be related to the craniotomy defect. Different stages of sleep were not seen. No electrographic seizure was recorded. IMPRESSION: This is an abnormal EEG due to: 1. Amplitude asymmetry with higher amplitude activity involving the left parietal region, suggestive of breach rhythm due to previous craniotomy defect. 2. Intermittent sharp-appearing waves, left parietal region, which partly may be related to #1, although underlying cortical irritability and tendency for seizure is also a possibility. No electrographic seizures were recorded. 3. Background slowing of mild to moderate degree, suggestive of underlying encephalopathy. Clinical correlation is recommended. MMODL / IJN: [id number] / [facility] MEDICAL CENTERMiranda
[2022-12-28] MEDS: levETIRAcetam IV 500 MG/5 ML VIAL IVP SCH ×2 (05:47→17:11)
[2022-12-28] MEDS: SODIUM CHLORIDE 0.9% 1,000 ML IV SCH ×2 (05:51→08:18)
[2022-12-28] MEDS: AMPICILLIN-SULBACTAM 1.5 GM in SODIUM CHLORIDE 0.9% 50 ML IVPB SCH ×4 (05:51→23:09)
[2022-12-28] MEDS: PANTOPRAZOLE 40 MG TABLET PO SCH (06:17)
[2022-12-28] MEDS: DEXAMETHASONE SOD PHOSPHATE 10 MG/ML 1 ML VIAL IVP SCH (08:18)
[2022-12-28 09:03] LABS: HCT 37.3 % (39.0-53.0); HGB 12.2 gm/dL (13.0-17.5); MCH 29.6 pg (25.0-35.0); MCHC 32.8 g/dL (31.0-37.0); MCV 90.1 fL (80.0-100.0); Mean Platelet Volume 7.6; Platelet Count 232 k/uL (150-450); RBC 4.14 m/uL (4.30-5.90); RDW 13.6 % (11.5-15.5); WBC 10.5 k/uL (3.8-10.6)
[2022-12-28 09:36] LABS: African American GFR (CKD) >90 (>60 ml/min/1.73 sqM); Anion Gap 5 mmol/L; Blood Urea Nitrogen 16 mg/dL (9-20); Calcium 8.1 mg/dL (8.4-10.2); Carbon Dioxide 27 mmol/L (22-30); Chloride 104 mmol/L (98-107); Glucose 100 mg/dL (74-99); Magnesium 1.9 mg/dL (1.6-2.3); Non-African American GFR(CKD) >90 (>60 ml/min/1.73 sqM); Phosphorus 2.1 mg/dL (2.5-4.5); Potassium 3.7 mmol/L (3.5-5.1); Sodium 136 mmol/L (137-145)
--- NOTE | 2022-12-28 10:34 | P.PN ---
Subjective Progress Note Date: 12/28/22 No new complaints today. Pt does have expressive aphasia, but does not appear altered. Gen: awake, alert HEENT: normocephalic, atraumatic, good hearing acuity, moist mucous membranes Resp: good air exchange, breathing comfortably with no accessory muscle use CVS: good distal perfusion x 4, GI: soft, NTTP, ND : no SPT, no CVAT, castellanos catheter not present MSK: no pitting edema, no clubbing Neuro: non-focal, moving all extremities, expressive aphasia Psych: cooperative, euthymic mood Hospital course: Patient is a 57-year-old male with glioblastoma multiforme diagnosed January 2022 status post resection, chemotherapy, and radiation who is currently following with Dr. Castillo and requires clean intermittent self-catheterization who presented to the ER due to lethargy and word finding difficulty. Vitals reviewed pulse 106, blood pressure 128/86, O2 sat 96% on room air and a T-max since admission 100.9 Labs reviewed from today and remarkable for glucose of 116. CBC remains normal. CTA chest-extensive infiltration of the left lower lobe likely representing pneumonia, no pulmonary embolism. CT head from 12/27 reviewed-consistent with CT head from 12/26 and possible punctate hemorrhages with pos-tsurgical changes of GBM. Patient seen in consultation with neurology, oncology. He underwent brain MRI which showed posterior left parietal lobe resection cavity filled with hemorrhagic fluid with overall irregular postcontrast enhancement along the inferior and lateral margins, development of some nodular density along the left lateral margin of the resection cavity measuring 1.7 cm with peripheral enhancement, no evidence of acute infarct. Patient was treated for a aspiration pneumonia with Unasyn. Treated for possible seizures with Keppra 1 g twice a day. Assessment: Altered mentation-possible seizure activity versus extension of glioblastoma multiforme on versus related to pneumonia Left lower lobe pneumonia, possible bacterial infection vs COVID COVID-19 infection Elevated d-dimer Plan: Today, patient is afebrile, 129/85, heart rate 87, 95% on room air CBC shows hemoglobin of 12.2 Basic metabolic panel shows sodium of 136 CBC, basic metabolic panel, magnesium ordered for tomorrow Oncology note reviewed, pending radiation oncology assessment, holding oral temodar Continue Unasyn 1.5 g every 6 hours Continue dexamethasone 6 mg IV daily Continue IV fluids at normal saline 75 mL per hour Continue Keppra 1000 mg twice a day Pending radiation oncology evaluation Patient is full code Objective - Vital Signs Vital signs: Vital Signs Temp 98.2 F 12/28/22 08:07 Pulse 87 12/28/22 08:07 Resp 20 12/28/22 08:07 BP 129/85 12/28/22 08:07 Pulse Ox 95 12/28/22 09:06 FiO2 21 12/28/22 09:06 Intake & Output 12/27/22 12/28/22 12/28/22 18:59 06:59 18:59 Intake Total 118 Output Total 1775 1250 Balance -9630 -0634 Intake: Oral 118 Output: Urine 575 1250 Emesis 1200 Other: Voiding Method Indwelling Catheter Indwelling Catheter Indwelling Catheter - Labs CBC & Chem 7: 12/28/22 07:51 12/28/22 07:51 Labs: Abnormal Lab Results - Last 24 Hours (Table) 12/27/22 12/28/22 12/28/22 Range/Units 08:18 07:51 07:51 RBC 4.14 L (4.30-5.90) m/uL Hgb 12.2 L (13.0-17.5) gm/dL Hct 37.3 L (39.0-53.0) % Sodium 136 L (137-145) mmol/L Creatinine 0.64 L (0.66-1.25) mg/dL Glucose 100 H (74-99) mg/dL Calcium 8.1 L (8.4-10.2) mg/dL Phosphorus 2.1 L (2.5-4.5) mg/dL Procalcitonin 0.14 H (0.02-0.09) ng/mL
--- NOTE | 2022-12-28 14:34 | P.PN ---
Subjective Progress Note Date: 12/28/22 Principal diagnosis: At today's visit patient is resting comfortably in bed. Patient denies shortness of breath. Breathing is even and unlabored. Patient denies pain. Continues on Unasyn Objective - Vital Signs Vital signs: Vital Signs Temp 99.1 F 12/28/22 11:16 Pulse 81 12/28/22 13:26 Resp 18 12/28/22 11:16 BP 125/83 12/28/22 11:16 Pulse Ox 96 12/28/22 11:16 FiO2 21 12/28/22 09:06 Intake & Output 12/27/22 12/28/22 12/28/22 18:59 06:59 18:59 Intake Total 118 780 Output Total 1775 1250 1350 Balance -6608 -7813 -122 Intake: Oral 118 780 Output: Urine 575 1250 1350 Emesis 1200 Other: Voiding Method Indwelling Catheter Indwelling Catheter Indwelling Catheter - Constitutional General appearance: Present: average body habitus, no acute distress - EENT Eyes: Present: anicteric sclerae, EOMI ENT: Present: hearing grossly normal - Respiratory Details: breathing is even and unlabored - Cardiovascular Details: skin warm and dry - Integumentary Integumentary: Absent: cyanotic, rash - Musculoskeletal Musculoskeletal: Present: strength equal bilaterally - Psychiatric Psychiatric Comment(s): A&O x1 , to name only - Labs CBC & Chem 7: 12/28/22 07:51 12/28/22 07:51 Labs: Abnormal Lab Results - Last 24 Hours (Table) 12/27/22 12/28/22 12/28/22 Range/Units 08:18 07:51 07:51 RBC 4.14 L (4.30-5.90) m/uL Hgb 12.2 L (13.0-17.5) gm/dL Hct 37.3 L (39.0-53.0) % Sodium 136 L (137-145) mmol/L Creatinine 0.64 L (0.66-1.25) mg/dL Glucose 100 H (74-99) mg/dL Calcium 8.1 L (8.4-10.2) mg/dL Phosphorus 2.1 L (2.5-4.5) mg/dL Procalcitonin 0.14 H (0.02-0.09) ng/mL Assessment and Plan (1) Altered mental status Current Visit: Yes Status: Acute Priority: High Code(s): R41.82 - ALTERED MENTAL STATUS, UNSPECIFIED SNOMED Code(s): 449629658 (2) GBM (glioblastoma multiforme) Current Visit: Yes Status: Chronic Priority: High Code(s): C71.9 - MALIGNANT NEOPLASM OF BRAIN, UNSPECIFIED SNOMED Code(s): 490317647 Plan: Altered mental status and weakness -Suspect related to pneumonia/Covid infection, also urine suspicious for UTI. Defer management of the same to IM and Pulmonary GBM -Dr. Castillo has been consulted, will discuss case with him. He will clarify with treating Oncologist and obtain more details about the case. -Oral Temodar to be held until patient has been treated adequately for pneumonia and UTI
--- NOTE | 2022-12-28 15:07 | P.PN ---
Subjective Progress Note Date: 12/28/22 Principal diagnosis: Altered mental status and possible aspiration pneumonia This is a 57-year-old white male, known history of glioblastoma multiforme, this was diagnosed in January of 2022, patient underwent resection, chemotherapy, and radiation treatment. He has chronic urinary retention requiring intermittent self-catheterization. Patient was brought into the ER yesterday with mostly symptoms of lethargy, difficulty expressing himself, more confusion, patient is actually a very poor historian, could not have much information from the patient himself, patient has no idea why he was brought into the hospital, he has no idea where he is, and he has no idea what year this is. At any rate part of the workup for his mental status change included a chest x-ray and CT of the chest. His CT of the chest is clearly consistent with left lower lobe extensive process/infiltrate. Hence this consult was initiated. Patient is again a poor historian, he is complaining of some cough, but could not elaborate any further denies being short of breath, no fever no chills no hemoptysis. MRI of the brain is very abnormal significant findings were noted related to his glioblast flores and previous surgery, patient was also found to have moderate to severe paranasal sinus disease involving the ethmoid air cells. And left maxillary sinus. I was consulted on this patient mostly because of his abnormal CT of the chest, and the findings are mostly consistent with pneumonia, could be community-acquired pneumonia or aspiration pneumonia. In addition to all of this patient was tested positive for COVID-19 infection. CBC showed no evidence of leukocytosis, his basic metabolic profile is normal, his d-dimer is a bit elevated to 1.50, urinalysis is suggestive of urinary tract infection, drug screen is negative. Reevaluated today on 12/28/2022, patient is basically about the same as yesterday. He has been seen by many consultants including neurology, and oncology, change in mental status felt to be related to his metabolic picture presenting with pneumonia, COVID-19 infection, and possible UTI. Patient remains on antibiotics empirically. Labs today are basically unremarkable including normal CBC and normal a sick metabolic profile, normal renal profile, no metabolic derangements noted he does have a slightly elevated pro calcitonin level of 0.14, and he is empirically on antibiotics for presumptive aspiration pneumonia, patient is on Unasyn. Objective - Vital Signs Vital signs: Vital Signs Temp 99.1 F 12/28/22 11:16 Pulse 81 12/28/22 13:26 Resp 18 12/28/22 11:16 BP 125/83 12/28/22 11:16 Pulse Ox 96 12/28/22 11:16 FiO2 21 12/28/22 09:06 Intake & Output 12/27/22 12/28/22 12/28/22 18:59 06:59 18:59 Intake Total 118 780 Output Total 1775 1250 1350 Balance -1657 -1250 -570 Intake: Oral 118 780 Output: Urine 575 1250 1350 Emesis 1200 Other: Voiding Method Indwelling Catheter Indwelling Catheter Indwelling Catheter - Exam General: Revealed a 57-year-old white male, slightly confused. In no distress Head: atraumatic, normocephalic Eyes: anicteric sclera, pupils equal round reactive to light ENT: Nose and ears atraumatic Neck: No cervical lymphadenopathy, trachea midline, supple Mouth: Moist mucous membranes, unremarkable. Cardiovascular: Normal S1 and S2, no S3 gallop, no murmur. Lungs: Minimal fine crackles on the rhonchi at the left base, right side is clear. Abdominal: Soft nontender no megaly no rebound no guarding. Ext: No clubbing edema or cyanosis. Neuro: Remains confused, and oriented to place time or person. Psych: Normal mood, normal affect, but confused. - Labs CBC & Chem 7: 12/28/22 07:51 12/28/22 07:51 Labs: Abnormal Lab Results - Last 24 Hours (Table) 12/27/22 12/28/22 12/28/22 Range/Units 08:18 07:51 07:51 RBC 4.14 L (4.30-5.90) m/uL Hgb 12.2 L (13.0-17.5) gm/dL Hct 37.3 L (39.0-53.0) % Sodium 136 L (137-145) mmol/L Creatinine 0.64 L (0.66-1.25) mg/dL Glucose 100 H (74-99) mg/dL Calcium 8.1 L (8.4-10.2) mg/dL Phosphorus 2.1 L (2.5-4.5) mg/dL Procalcitonin 0.14 H (0.02-0.09) ng/mL Assessment and Plan Assessment: Impression: Altered mental status, most likely secondary to his underlying glioblastoma multiform be and possible seizures, could also be related to his ongoing metabolic issues including pneumonia, COVID-19 infection, and possible UTI. Strongly suspect aspiration pneumonia based on CT of the chest Positive COVID-19 PCR Suspect chronic sinusitis Recommendation:continue Unasyn. Continue COVID-19 cocktail Check urine culture and blood cultures, these are pending. Continue GI and DVT prophylaxis We will continue to follow Time with Patient: Less than 30
[2022-12-28] MEDS: TAMSULOSIN 0.4 MG CAP.ER.24H PO SCH (20:26)
[2022-12-28] MEDS: FINASTERIDE 5 MG TAB PO SCH (20:26)
--- NOTE | 2022-12-29 01:17 | P.PN ---
Subjective Progress Note Date: 12/28/22 Patient was seen for a follow-up. Patient is laying comfortably in the bed. Patient states he is feeling better. Denies any headache or dizziness. Patient is not too much groggy. No seizures reported. Objective - Vital Signs Vital signs: Vital Signs Temp 98.5 F 12/28/22 16:55 Pulse 82 12/28/22 16:55 Resp 20 12/28/22 16:55 BP 130/88 12/28/22 16:55 Pulse Ox 95 12/28/22 16:55 FiO2 21 12/28/22 09:06 Intake & Output 12/27/22 12/28/22 12/28/22 18:59 06:59 18:59 Intake Total 118 1140 Output Total 1775 1250 1350 Balance -1657 -1250 -210 Intake: Oral 118 1140 Output: Urine 575 1250 1350 Emesis 1200 Other: Voiding Method Indwelling Catheter Indwelling Catheter Indwelling Catheter - Exam Patient is alert and awake, very pleasant. Patient continues to have significant expressive aphasia. Slight better comprehension today. Detail examination deferred. - Labs CBC & Chem 7: 12/28/22 07:51 12/28/22 07:51 Labs: Abnormal Lab Results - Last 24 Hours (Table) 12/28/22 12/28/22 Range/Units 07:51 07:51 RBC 4.14 L (4.30-5.90) m/uL Hgb 12.2 L (13.0-17.5) gm/dL Hct 37.3 L (39.0-53.0) % Sodium 136 L (137-145) mmol/L Creatinine 0.64 L (0.66-1.25) mg/dL Glucose 100 H (74-99) mg/dL Calcium 8.1 L (8.4-10.2) mg/dL Phosphorus 2.1 L (2.5-4.5) mg/dL Assessment and Plan Assessment: * Altered mental status, likely due to metabolic encephalopathy due to reasons as mentioned below. * Acute Covid-19 infection * Probable aspiration pneumonia * Probable acute UTI * History of GBM, status post resection, currently on chemotherapy with Temodar. * Pansinusitis Plan: * MRI of the brain, which revealed posterior left parietal lobe resection cavity redemonstrated. The cavities filled with hemorrhagic material and fluid. Overall regular post contrast enhancement along the inferior and lateral margins as well as the surrounding T2 bright white matter changes extending forward into the posterior left frontal lobe is similar. In the interval, there has been development of some nodular density along the left lateral margin of the resection cavity measuring 1.7 x 1.5 cm. This shows peripheral enhancement, low T1-weighted signal and restricted diffusion. A small area of adjacent acutely infarcted cortex is possible. Local progression is felt to be less likely but not entirely excluded at this time. Ongoing follow-up recommended. No evidence for an acute infarct. Development of moderate to severe paranasal sinus disease involving the ethmoid air cells and left maxillary sinus. I personally reviewed MRI, agree with the findings. * EEG was performed, which was abnormal due to #1: amplitude asymmetry with higher amplitude activity involving the left parietal region, suggestive of breach rhythm due to previous craniotomy defect. #2: intermittent sharp- appearing waves left parietal region, which may be related to #1, although underlying cortical irritability and tendency for seizure is also a possibility. No electrographic seizure was recorded. #3: background slowing, suggestive of mild to moderate encephalopathy. Clinical correlation is recommended. * Continue Keppra 1 g twice a day. * Oncology input appreciated. Await radiation oncology input. * Patient has probable aspiration pneumonia. MRI also revealed paranasal sinus disease. Patient has received 1 dose of ceftriaxone 2 g, and one dose of azithromycin. Patient currently maintained on Unasyn 1.5 g every 6 hours. Pulmonary medicine also on board. * Dr. Danilo Dhaliwal will cover neurology service over the weekend.
[2022-12-29] MEDS: AMPICILLIN-SULBACTAM 1.5 GM in SODIUM CHLORIDE 0.9% 50 ML IVPB SCH ×3 (06:03→17:21)
[2022-12-29] MEDS: levETIRAcetam IV 500 MG/5 ML VIAL IVP SCH ×2 (06:07→17:21)
[2022-12-29] MEDS: SODIUM CHLORIDE 0.9% 1,000 ML IV SCH ×2 (06:16→11:23)
[2022-12-29] MEDS: DEXAMETHASONE SOD PHOSPHATE 10 MG/ML 1 ML VIAL IVP SCH (09:43)
[2022-12-29] MEDS: PANTOPRAZOLE 40 MG TABLET PO SCH (09:43)
--- NOTE | 2022-12-29 11:44 | P.PN ---
Subjective Progress Note Date: 12/29/22 No new complaints today. He is at his mental baseline, but feels run down and tired today. Gen: awake, alert HEENT: normocephalic, atraumatic, good hearing acuity, moist mucous membranes Resp: good air exchange, breathing comfortably with no accessory muscle use CVS: good distal perfusion x 4, GI: soft, NTTP, ND : no SPT, no CVAT, castellanos catheter not present MSK: no pitting edema, no clubbing Neuro: non-focal, moving all extremities, expressive aphasia Psych: cooperative, euthymic mood Hospital course: Patient is a 57-year-old male with glioblastoma multiforme diagnosed January 2022 status post resection, chemotherapy, and radiation who is currently following with Dr. Castillo and requires clean intermittent self-catheterization who presented to the ER due to lethargy and word finding difficulty. Vitals reviewed pulse 106, blood pressure 128/86, O2 sat 96% on room air and a T-max since admission 100.9 Labs reviewed from today and remarkable for glucose of 116. CBC remains normal. CTA chest-extensive infiltration of the left lower lobe likely representing pneumonia, no pulmonary embolism. CT head from 12/27 reviewed-consistent with CT head from 12/26 and possible punctate hemorrhages with pos-tsurgical changes of GBM. Patient seen in consultation with neurology, oncology. He underwent brain MRI which showed posterior left parietal lobe resection cavity filled with hemorrhagic fluid with overall irregular postcontrast enhancement along the inferior and lateral margins, development of some nodular density along the left lateral margin of the resection cavity measuring 1.7 cm with peripheral enhancement, no evidence of acute infarct. Patient was treated for a aspiration pneumonia with Unasyn. Treated for possible seizures with Keppra 1 g twice a day. Assessment: Altered mentation-possible seizure activity versus extension of glioblastoma multiforme on versus related to pneumonia Left lower lobe pneumonia, possible bacterial infection vs COVID COVID-19 infection Elevated d-dimer Plan: Today, patient is afebrile, 125/87, heart rate 69, 96% on room air CBC, basic metabolic panel, magnesium ordered for tomorrow Discussed the case with neurology, we would like to wait for radiation oncology assessment Continue Unasyn 1.5 g every 6 hours Continue dexamethasone 6 mg IV daily Continue IV fluids at normal saline 75 mL per hour Continue Keppra 1000 mg twice a day Pending radiation oncology evaluation Patient is full code Objective - Vital Signs Vital signs: Vital Signs Temp 99.1 F 12/29/22 11:13 Pulse 69 12/29/22 11:13 Resp 16 12/29/22 11:13 BP 125/87 12/29/22 11:13 Pulse Ox 96 12/29/22 11:13 FiO2 21 12/28/22 09:06 Intake & Output 12/28/22 12/29/22 12/29/22 18:59 06:59 18:59 Intake Total 1140 130 Output Total 1350 1601 450 Balance -210 -1601 -320 Intake: IV 10 Invasive Line 1 10 Oral 1140 120 Output: Urine 1350 1600 450 Stool 1 Other: Voiding Method Indwelling Catheter Indwelling Catheter Indwelling Catheter # Bowel Movements 1 - Labs CBC & Chem 7: 12/28/22 07:51 12/28/22 07:51
[2022-12-29 11:58] LABS: African American GFR (CKD) >90 (>60 ml/min/1.73 sqM); Anion Gap 9 mmol/L; Blood Urea Nitrogen 13 mg/dL (9-20); Calcium 8.1 mg/dL (8.4-10.2); Carbon Dioxide 25 mmol/L (22-30); Chloride 102 mmol/L (98-107); Glucose 100 mg/dL (74-99); Magnesium 1.9 mg/dL (1.6-2.3); Non-African American GFR(CKD) >90 (>60 ml/min/1.73 sqM); Potassium 3.6 mmol/L (3.5-5.1); Sodium 136 mmol/L (137-145)
[2022-12-29 12:28] LABS: Basophils % (A) 0 %; Eosinophils % (A) 0 %; HCT 39.7 % (39.0-53.0); HGB 13.2 gm/dL (13.0-17.5); Lymphocytes # (A) 0.5 k/uL (1.0-4.8); Lymphocytes % (A) 7 %; MCH 30.1 pg (25.0-35.0); MCHC 33.3 g/dL (31.0-37.0); MCV 90.4 fL (80.0-100.0); Mean Platelet Volume 7.8; Monocytes # (A) 0.5 k/uL (0-1.0); Monocytes % (A) 7 %; Neutrophils # (A) 6.2 k/uL (1.3-7.7); Neutrophils % (A) 84 %; Platelet Count 252 k/uL (150-450); RBC 4.39 m/uL (4.30-5.90); RDW 13.4 % (11.5-15.5); WBC 7.4 k/uL (3.8-10.6)
--- NOTE | 2022-12-29 12:50 | P.PN ---
Subjective Progress Note Date: 12/29/22 I am seeing the patient for the first time during this admission. Please refer to Dr. Ennis's notes for further details. It seems patient has recent COVID-19 infection. He has hx of GBM and has underlying expressive aphasia as baseline and per nurse he is about baseline. Objective - Vital Signs Vital signs: Vital Signs Temp 99.1 F 12/29/22 11:13 Pulse 69 12/29/22 11:13 Resp 16 12/29/22 11:13 BP 125/87 12/29/22 11:13 Pulse Ox 96 12/29/22 11:13 FiO2 21 12/28/22 09:06 Intake & Output 12/28/22 12/29/22 12/29/22 18:59 06:59 18:59 Intake Total 1140 130 Output Total 1350 1601 1550 Balance -210 -1601 -1420 Intake: IV 10 Invasive Line 1 10 Oral 1140 120 Output: Urine 1350 1600 1550 Stool 1 Other: Voiding Method Indwelling Catheter Indwelling Catheter Indwelling Catheter # Bowel Movements 1 - Exam Neuro: Somewhat limited. Patient is awake, alert, oriented to self. Has significant expressive aphasia. Has preservation of speech. No facial weakness. No dysarthria. Moving all extremities above gravity. - Labs CBC & Chem 7: 12/29/22 10:16 12/29/22 10:16 Labs: Abnormal Lab Results - Last 24 Hours (Table) 12/29/22 12/29/22 Range/Units 10:16 10:16 Lymphocytes # 0.5 L (1.0-4.8) k/uL Sodium 136 L (137-145) mmol/L Glucose 100 H (74-99) mg/dL Calcium 8.1 L (8.4-10.2) mg/dL Assessment and Plan Assessment: * Altered mental status, likely due to metabolic encephalopathy due to reasons as mentioned below. * Acute Covid-19 infection * Probable aspiration pneumonia * Probable acute UTI * History of GBM, status post resection, currently on chemotherapy with Temodar. * Pansinusitis Plan: * MRI of the brain, which revealed posterior left parietal lobe resection cavity redemonstrated. The cavities filled with hemorrhagic material and fluid. Overall regular post contrast enhancement along the inferior and lateral margins as well as the surrounding T2 bright white matter changes extending forward into the posterior left frontal lobe is similar. In the interval, there has been development of some nodular density along the left lateral margin of the resection cavity measuring 1.7 x 1.5 cm. This shows peripheral enhancement, low T1-weighted signal and restricted diffusion. A small area of adjacent acutely infarcted cortex is possible. Local progression is felt to be less likely but not entirely excluded at this time. Ongoing follow-up recommended. No evidence for an acute infarct. Development of moderate to severe paranasal sinus disease involving the ethmoid air cells and left maxillary sinus. I personally reviewed MRI, agree with the findings. * EEG was performed, which was abnormal due to #1: amplitude asymmetry with higher amplitude activity involving the left parietal region, suggestive of breach rhythm due to previous craniotomy defect. #2: intermittent sharp- appearing waves left parietal region, which may be related to #1, although underlying cortical irritability and tendency for seizure is also a possibility. No electrographic seizure was recorded. #3: background slowing, suggestive of mild to moderate encephalopathy. Clinical correlation is recommended. * Continue Keppra 1 g twice a day. * Oncology input appreciated. Await radiation oncology input. * Patient has probable aspiration pneumonia. MRI also revealed paranasal sinus disease. Patient has received 1 dose of ceftriaxone 2 g, and one dose of azithromycin. Patient currently maintained on Unasyn 1.5 g every 6 hours. Pulmonary medicine also on board. The plan is discussed with primary team and his nurse. Dr. Ennis will start neurology service tomorrow A.M. Time with Patient: Less than 30
--- NOTE | 2022-12-29 12:56 | P.PN ---
Subjective Progress Note Date: 12/29/22 Principal diagnosis: Altered mental status and possible aspiration pneumonia This is a 57-year-old white male, known history of glioblastoma multiforme, this was diagnosed in January of 2022, patient underwent resection, chemotherapy, and radiation treatment. He has chronic urinary retention requiring intermittent self-catheterization. Patient was brought into the ER yesterday with mostly symptoms of lethargy, difficulty expressing himself, more confusion, patient is actually a very poor historian, could not have much information from the patient himself, patient has no idea why he was brought into the hospital, he has no idea where he is, and he has no idea what year this is. At any rate part of the workup for his mental status change included a chest x-ray and CT of the chest. His CT of the chest is clearly consistent with left lower lobe extensive process/infiltrate. Hence this consult was initiated. Patient is again a poor historian, he is complaining of some cough, but could not elaborate any further denies being short of breath, no fever no chills no hemoptysis. MRI of the brain is very abnormal significant findings were noted related to his glioblast flores and previous surgery, patient was also found to have moderate to severe paranasal sinus disease involving the ethmoid air cells. And left maxillary sinus. I was consulted on this patient mostly because of his abnormal CT of the chest, and the findings are mostly consistent with pneumonia, could be community-acquired pneumonia or aspiration pneumonia. In addition to all of this patient was tested positive for COVID-19 infection. CBC showed no evidence of leukocytosis, his basic metabolic profile is normal, his d-dimer is a bit elevated to 1.50, urinalysis is suggestive of urinary tract infection, drug screen is negative. Reevaluated today on 12/28/2022, patient is basically about the same as yesterday. He has been seen by many consultants including neurology, and oncology, change in mental status felt to be related to his metabolic picture presenting with pneumonia, COVID-19 infection, and possible UTI. Patient remains on antibiotics empirically. Labs today are basically unremarkable including normal CBC and normal a sick metabolic profile, normal renal profile, no metabolic derangements noted he does have a slightly elevated pro calcitonin level of 0.14, and he is empirically on antibiotics for presumptive aspiration pneumonia, patient is on Unasyn. Reevaluated today on 12/29/2022, patient seems to be very comfortable, not in distress, he tells me that he is feeling better. Patient has a low-grade temp of 99.1, blood pressure is normal, he is on room air with O2 sats rations of 96%. Continues to have normal WBC count, continues to have normal electrolytes and normal renal profile. I believe the patient is definitely better compared to baseline. Mentation however is basically about the same, Objective - Vital Signs Vital signs: Vital Signs Temp 99.1 F 12/29/22 11:13 Pulse 69 12/29/22 11:13 Resp 16 12/29/22 11:13 BP 125/87 12/29/22 11:13 Pulse Ox 96 12/29/22 11:13 FiO2 21 12/28/22 09:06 Intake & Output 12/28/22 12/29/22 12/29/22 18:59 06:59 18:59 Intake Total 1140 130 Output Total 1350 1601 1550 Balance -210 -1601 -1420 Intake: IV 10 Invasive Line 1 10 Oral 1140 120 Output: Urine 1350 1600 1550 Stool 1 Other: Voiding Method Indwelling Catheter Indwelling Catheter Indwelling Catheter # Bowel Movements 1 - Exam General: Revealed a 57-year-old white male, hard of hearing. Head: atraumatic, normocephalic Eyes: anicteric sclera, pupils equal round reactive to light ENT: Nose and ears atraumatic Neck: No cervical lymphadenopathy, trachea midline, supple Mouth: Moist mucous membranes, unremarkable. Cardiovascular: Normal S1 and S2, no S3 gallop, no murmur. Lungs: Minimal fine crackles on the rhonchi at the left base, right side is clear. Abdominal: Soft nontender no megaly no rebound no guarding. Ext: No clubbing edema or cyanosis. Neuro: Remains confused, and oriented to place time or person. Psych: Normal mood, normal affect, but confused. - Labs CBC & Chem 7: 12/29/22 10:16 12/29/22 10:16 Labs: Abnormal Lab Results - Last 24 Hours (Table) 12/29/22 12/29/22 Range/Units 10:16 10:16 Lymphocytes # 0.5 L (1.0-4.8) k/uL Sodium 136 L (137-145) mmol/L Glucose 100 H (74-99) mg/dL Calcium 8.1 L (8.4-10.2) mg/dL Assessment and Plan Assessment: Impression: Altered mental status, most likely secondary to his underlying glioblastoma multiform be and possible seizures, could also be related to his ongoing metabolic issues including pneumonia, COVID-19 infection, and possible UTI. Strongly suspect aspiration pneumonia based on CT of the chest Positive COVID-19 PCR Suspect chronic sinusitis Recommendation:continue antibiotics for presumptive aspiration pneumonia and pansinusitis/Unasyn Continue COVID-19 cocktail Check urine culture and blood cultures, Continue GI and DVT prophylaxis We will continue to follow Time with Patient: Less than 30
[2022-12-29] MEDS: TAMSULOSIN 0.4 MG CAP.ER.24H PO SCH (20:30)
[2022-12-29] MEDS: FINASTERIDE 5 MG TAB PO SCH (20:30)
[2022-12-30] MEDS: AMPICILLIN-SULBACTAM 1.5 GM in SODIUM CHLORIDE 0.9% 50 ML IVPB SCH ×4 (00:04→17:01)
[2022-12-30] MEDS: levETIRAcetam IV 500 MG/5 ML VIAL IVP SCH ×2 (06:29→17:01)
[2022-12-30] MEDS: PANTOPRAZOLE 40 MG TABLET PO SCH (06:30)
[2022-12-30] MEDS: SODIUM CHLORIDE 0.9% 1,000 ML IV SCH ×2 (06:39→08:59)
[2022-12-30] MEDS: DEXAMETHASONE SOD PHOSPHATE 10 MG/ML 1 ML VIAL IVP SCH (08:59)
--- NOTE | 2022-12-30 10:12 | P.PN ---
Subjective Progress Note Date: 12/30/22 No new complaints today. He is at his mental baseline, feels better than yesterday. Gen: awake, alert HEENT: normocephalic, atraumatic, good hearing acuity, moist mucous membranes Resp: good air exchange, breathing comfortably with no accessory muscle use CVS: good distal perfusion x 4, GI: soft, NTTP, ND : no SPT, no CVAT, castellanos catheter not present MSK: no pitting edema, no clubbing Neuro: non-focal, moving all extremities, expressive aphasia Psych: cooperative, euthymic mood Hospital course: Patient is a 57-year-old male with glioblastoma multiforme diagnosed January 2022 status post resection, chemotherapy, and radiation who is currently following with Dr. Castillo and requires clean intermittent self-catheterization who presented to the ER due to lethargy and word finding difficulty. Vitals reviewed pulse 106, blood pressure 128/86, O2 sat 96% on room air and a T-max since admission 100.9 Labs reviewed from today and remarkable for glucose of 116. CBC remains normal. CTA chest-extensive infiltration of the left lower lobe likely representing pneumonia, no pulmonary embolism. CT head from 12/27 reviewed-consistent with CT head from 12/26 and possible punctate hemorrhages with pos-tsurgical changes of GBM. Patient seen in consultation with neurology, oncology. He underwent brain MRI which showed posterior left parietal lobe resection cavity filled with hemorrhagic fluid with overall irregular postcontrast enhancement along the inferior and lateral margins, development of some nodular density along the left lateral margin of the resection cavity measuring 1.7 cm with peripheral enhancement, no evidence of acute infarct. Patient was treated for a aspiration pneumonia with Unasyn. Treated for possible seizures with Keppra 1 g twice a day. Assessment: Altered mentation-possible seizure activity versus extension of glioblastoma multiforme on versus related to pneumonia Left lower lobe pneumonia, possible bacterial infection vs COVID COVID-19 infection Elevated d-dimer Plan: Today, patient is afebrile, 130/82, heart rate 76, 97% on room air CBC, basic metabolic panel, magnesium ordered for tomorrow Continue Unasyn 1.5 g every 6 hours Continue dexamethasone 6 mg IV daily Continue IV fluids at normal saline 75 mL per hour Continue Keppra 1000 mg twice a day Pending radiation oncology evaluation Patient is full code Objective - Vital Signs Vital signs: Vital Signs Temp 98.2 F 12/30/22 09:09 Pulse 76 12/30/22 09:09 Resp 16 12/30/22 09:15 BP 130/82 12/30/22 09:09 Pulse Ox 97 12/30/22 09:09 FiO2 21 12/28/22 09:06 Intake & Output 12/29/22 12/30/22 12/30/22 18:59 06:59 18:59 Intake Total 370 200 Output Total 2201 1500 1 Balance -1831 -1500 199 Intake: IV 10 20 Invasive Line 1 10 10 Invasive Line 2 10 Oral 360 180 Output: Urine 2200 1500 Stool 1 1 Other: Voiding Method Indwelling Catheter Indwelling Catheter Indwelling Catheter # Bowel Movements 1 - Labs CBC & Chem 7: 12/29/22 10:16 12/29/22 10:16 Labs: Abnormal Lab Results - Last 24 Hours (Table) 12/29/22 12/29/22 Range/Units 10:16 10:16 Lymphocytes # 0.5 L (1.0-4.8) k/uL Sodium 136 L (137-145) mmol/L Glucose 100 H (74-99) mg/dL Calcium 8.1 L (8.4-10.2) mg/dL Microbiology - Last 24 Hours (Table) 12/27/22 08:10 Blood Culture - Preliminary Blood 12/27/22 08:18 Blood Culture - Preliminary Blood
--- NOTE | 2022-12-30 11:29 | P.PN ---
Subjective Progress Note Date: 12/30/22 Principal diagnosis: Altered mental status and possible aspiration pneumonia This is a 57-year-old white male, known history of glioblastoma multiforme, this was diagnosed in January of 2022, patient underwent resection, chemotherapy, and radiation treatment. He has chronic urinary retention requiring intermittent self-catheterization. Patient was brought into the ER yesterday with mostly symptoms of lethargy, difficulty expressing himself, more confusion, patient is actually a very poor historian, could not have much information from the patient himself, patient has no idea why he was brought into the hospital, he has no idea where he is, and he has no idea what year this is. At any rate part of the workup for his mental status change included a chest x-ray and CT of the chest. His CT of the chest is clearly consistent with left lower lobe extensive process/infiltrate. Hence this consult was initiated. Patient is again a poor historian, he is complaining of some cough, but could not elaborate any further denies being short of breath, no fever no chills no hemoptysis. MRI of the brain is very abnormal significant findings were noted related to his glioblast flores and previous surgery, patient was also found to have moderate to severe paranasal sinus disease involving the ethmoid air cells. And left maxillary sinus. I was consulted on this patient mostly because of his abnormal CT of the chest, and the findings are mostly consistent with pneumonia, could be community-acquired pneumonia or aspiration pneumonia. In addition to all of this patient was tested positive for COVID-19 infection. CBC showed no evidence of leukocytosis, his basic metabolic profile is normal, his d-dimer is a bit elevated to 1.50, urinalysis is suggestive of urinary tract infection, drug screen is negative. Reevaluated today on 12/28/2022, patient is basically about the same as yesterday. He has been seen by many consultants including neurology, and oncology, change in mental status felt to be related to his metabolic picture presenting with pneumonia, COVID-19 infection, and possible UTI. Patient remains on antibiotics empirically. Labs today are basically unremarkable including normal CBC and normal a sick metabolic profile, normal renal profile, no metabolic derangements noted he does have a slightly elevated pro calcitonin level of 0.14, and he is empirically on antibiotics for presumptive aspiration pneumonia, patient is on Unasyn. Reevaluated today on 12/29/2022, patient seems to be very comfortable, not in distress, he tells me that he is feeling better. Patient has a low-grade temp of 99.1, blood pressure is normal, he is on room air with O2 sats rations of 96%. Continues to have normal WBC count, continues to have normal electrolytes and normal renal profile. I believe the patient is definitely better compared to baseline. Mentation however is basically about the same, Reevaluated today on 12/30/2022, patient is doing well, relatively asymptomatic, hardly any pulmonary symptoms, hence I'm recommending follow-up chest x-ray in a.m., and if no major changes noted on the chest x-ray, patient could be considered for discharge planning. Patient is afebrile, he is hemodynamically stable, O2 sats is 96% on room air. Objective - Vital Signs Vital signs: Vital Signs Temp 98.2 F 12/30/22 09:09 Pulse 76 12/30/22 09:09 Resp 16 12/30/22 09:15 BP 130/82 12/30/22 09:09 Pulse Ox 97 12/30/22 09:09 FiO2 21 12/28/22 09:06 Intake & Output 12/29/22 12/30/22 12/30/22 18:59 06:59 18:59 Intake Total 370 200 Output Total 2201 1500 1 Balance -1831 -1500 199 Intake: IV 10 20 Invasive Line 1 10 10 Invasive Line 2 10 Oral 360 180 Output: Urine 2200 1500 Stool 1 1 Other: Voiding Method Indwelling Catheter Indwelling Catheter Indwelling Catheter # Bowel Movements 1 - Exam General: Revealed a 57-year-old white male, hard of hearing. Head: atraumatic, normocephalic Eyes: anicteric sclera, pupils equal round reactive to light ENT: Nose and ears atraumatic Neck: No cervical lymphadenopathy, trachea midline, supple Mouth: Moist mucous membranes, unremarkable. Cardiovascular: Normal S1 and S2, no S3 gallop, no murmur. Lungs: Minimal fine crackles on the rhonchi at the left base, right side is clear. Abdominal: Soft nontender no megaly no rebound no guarding. Ext: No clubbing edema or cyanosis. Neuro: Remains confused, today the patient is not oriented to place. Or 2 year. Psych: Normal mood, normal affect, but confused. - Labs CBC & Chem 7: 12/29/22 10:16 12/29/22 10:16 Labs: Abnormal Lab Results - Last 24 Hours (Table) 12/29/22 12/29/22 Range/Units 10:16 10:16 Lymphocytes # 0.5 L (1.0-4.8) k/uL Sodium 136 L (137-145) mmol/L Glucose 100 H (74-99) mg/dL Calcium 8.1 L (8.4-10.2) mg/dL Microbiology - Last 24 Hours (Table) 12/27/22 08:10 Blood Culture - Preliminary Blood 12/27/22 08:18 Blood Culture - Preliminary Blood Assessment and Plan Assessment: Impression: Altered mental status, most likely secondary to his underlying glioblastoma multiform be and possible seizures, could also be related to his ongoing metabolic issues including pneumonia, COVID-19 infection, and possible UTI. Acute aspiration pneumonia is strongly suspected Positive COVID-19 PCR chronic sinusitis Recommendation:continue antibiotics for presumptive aspiration pneumonia and pansinusitis/Unasyn Repeat chest x-ray in a.m. Consider transition to oral antibiotics Consider discharge planning in the next 24 hours depending on chest x-ray findings Continue COVID-19 cocktail Continue GI and DVT prophylaxis We will continue to follow Time with Patient: Less than 30
[2022-12-30 16:09] LABS: Basophils % (A) 0 %; Eosinophils % (A) 0 %; HGB 14.3 gm/dL (13.0-17.5); Lymphocytes # (A) 0.5 k/uL (1.0-4.8); Lymphocytes % (A) 7 %; MCH 29.2 pg (25.0-35.0); MCHC 32.5 g/dL (31.0-37.0); MCV 89.8 fL (80.0-100.0); Mean Platelet Volume 7.4; Monocytes # (A) 0.4 k/uL (0-1.0); Monocytes % (A) 6 %; Neutrophils # (A) 6.1 k/uL (1.3-7.7); Neutrophils % (A) 85 %; Platelet Count 313 k/uL (150-450); RBC 4.89 m/uL (4.30-5.90); RDW 13.5 % (11.5-15.5); WBC 7.2 k/uL (3.8-10.6)
[2022-12-30 16:10] LABS: African American GFR (CKD) >90 (>60 ml/min/1.73 sqM); Anion Gap 10 mmol/L; Blood Urea Nitrogen 19 mg/dL (9-20); Calcium 8.3 mg/dL (8.4-10.2); Carbon Dioxide 24 mmol/L (22-30); Chloride 103 mmol/L (98-107); Glucose 129 mg/dL (74-99); Non-African American GFR(CKD) >90 (>60 ml/min/1.73 sqM); Potassium 4.1 mmol/L (3.5-5.1); Sodium 137 mmol/L (137-145)
[2022-12-30] MEDS: TAMSULOSIN 0.4 MG CAP.ER.24H PO SCH (20:02)
[2022-12-30] MEDS: FINASTERIDE 5 MG TAB PO SCH (20:02)
[2022-12-31] MEDS: SODIUM CHLORIDE 0.9% 1,000 ML IV SCH
[2022-12-31] MEDS: PANTOPRAZOLE 40 MG TABLET PO SCH (06:13)
[2022-12-31] MEDS: levETIRAcetam IV 500 MG/5 ML VIAL IVP SCH (06:13)
[2022-12-31] MEDS: AMPICILLIN-SULBACTAM 1.5 GM in SODIUM CHLORIDE 0.9% 50 ML IVPB SCH ×3 (06:14)
--- NOTE | 2022-12-31 07:52 | XR ---
EXAMINATION TYPE: XR chest 1V portable DATE OF EXAM: 12/31/2022 HISTORY: Shortness of breath. COMPARISON: 12/26/2022 TECHNIQUE: Single view of the chest is submitted. FINDINGS: Demonstrated are scattered senescent parenchymal change. There is no evidence for focal infiltrate. The heart is stable. Hilar and mediastinal structures are within normal limits. Degenerative changes are seen of the dorsal spine. IMPRESSION: 1. Chronic changes without evidence for acute pulmonary disease.
[2022-12-31 08:36] LABS: Basophils % (A) 0 %; Eosinophils # (A) 0.1 k/uL (0-0.7); Eosinophils % (A) 1 %; HGB 14.6 gm/dL (13.0-17.5); Lymphocytes # (A) 1.1 k/uL (1.0-4.8); Lymphocytes % (A) 17 %; MCH 28.6 pg (25.0-35.0); MCHC 32.4 g/dL (31.0-37.0); MCV 88.3 fL (80.0-100.0); Mean Platelet Volume 7.4; Monocytes # (A) 0.5 k/uL (0-1.0); Monocytes % (A) 7 %; Neutrophils # (A) 4.9 k/uL (1.3-7.7); Neutrophils % (A) 73 %; Platelet Count 366 k/uL (150-450); RDW 13.4 % (11.5-15.5); WBC 6.7 k/uL (3.8-10.6)
[2022-12-31] MEDS: DEXAMETHASONE SOD PHOSPHATE 10 MG/ML 1 ML VIAL IVP SCH (08:49)
[2022-12-31 08:56] LABS: African American GFR (CKD) >90 (>60 ml/min/1.73 sqM); Anion Gap 10 mmol/L; Blood Urea Nitrogen 12 mg/dL (9-20); Calcium 8.6 mg/dL (8.4-10.2); Carbon Dioxide 25 mmol/L (22-30); Chloride 103 mmol/L (98-107); Glucose 137 mg/dL (74-99); Magnesium 1.9 mg/dL (1.6-2.3); Non-African American GFR(CKD) >90 (>60 ml/min/1.73 sqM); Potassium 3.6 mmol/L (3.5-5.1); Sodium 138 mmol/L (137-145)
[2022-12-31 10:42] VITALS: BP 126/81; PULSE 84; RESP 16; TEMP 97.7
--- NOTE | 2022-12-31 11:46 | P.PN ---
Subjective Progress Note Date: 12/31/22 Principal diagnosis: Pneumonia. Altered mental status and possible aspiration pneumonia This is a 57-year-old white male, known history of glioblastoma multiforme, this was diagnosed in January of 2022, patient underwent resection, chemotherapy, and radiation treatment. He has chronic urinary retention requiring intermittent self-catheterization. Patient was brought into the ER yesterday with mostly symptoms of lethargy, difficulty expressing himself, more confusion, patient is actually a very poor historian, could not have much information from the patient himself, patient has no idea why he was brought into the hospital, he has no idea where he is, and he has no idea what year this is. At any rate part of the workup for his mental status change included a chest x-ray and CT of the chest. His CT of the chest is clearly consistent with left lower lobe extensive pro cess/infiltrate. Hence this consult was initiated. Patient is again a poor historian, he is complaining of some cough, but could not elaborate any further denies being short of breath, no fever no chills no hemoptysis. MRI of the brain is very abnormal significant findings were noted related to his glioblastoma and previous surgery, patient was also found to have moderate to severe paranasal sinus disease involving the ethmoid air cells. And left maxillary sinus. I was consulted on this patient mostly because of his abnormal CT of the chest, and the findings are mostly consistent with pneumonia, could be community-acquired pneumonia or aspiration pneumonia. In addition to all of this patient was tested positive for COVID-19 infection. CBC showed no evidence of leukocytosis, his basic metabolic profile is normal, his d-dimer is a bit elevated to 1.50, urinalysis is suggestive of urinary tract infection, drug screen is negative. Reevaluated today on 12/28/2022, patient is basically about the same as yesterday. He has been seen by many consultants including neurology, and oncology, change in mental status felt to be related to his metabolic picture presenting with pneumonia, COVID-19 infection, and possible UTI. Patient remains on antibiotics empirically. Labs today are basically unremarkable including normal CBC and normal a sick metabolic profile, normal renal profile, no metabolic derangements noted he does have a slightly elevated pro calcitonin level of 0.14, and he is empirically on antibiotics for presumptive aspiration pneumonia, patient is on Unasyn. Reevaluated today on 12/29/2022, patient seems to be very comfortable, not in distress, he tells me that he is feeling better. Patient has a low-grade temp of 99.1, blood pressure is normal, he is on room air with O2 sats rations of 96%. Continues to have normal WBC count, continues to have normal electrolytes and normal renal profile. I believe the patient is definitely better compared to baseline. Mentation however is basically about the same, Reevaluated today on 12/30/2022, patient is doing well, relatively asymptomatic, hardly any pulmonary symptoms, hence I'm recommending follow-up chest x-ray in a.m., and if no major changes noted on the chest x-ray, patient could be considered for discharge planning. Patient is afebrile, he is hemodynamically stable, O2 sats is 96% on room air. Progress note dated 12/31/2022. The patient appears be doing relatively well. He seen today in room 351. He is on room air. He is getting saline at 75 mL an hour. His antibiotic as converted to Augmentin 875 twice a day. The patient is hoping to be discharged home in the near future. CBC shows a white count of 6.7, hemoglobin 14.6, hematocrit 45, and a normal platelet count. Sodium 138, potassium 3.6, chlorides 103, CO2 25, anion gap normal, BUN 12, creatinine 0.78. Blood cultures are negative. Chest x-ray shows primarily chronic changes, with nothing in the way of acute abnormalities. Objective - Vital Signs Vital signs: Vital Signs Temp 97.7 F 12/31/22 08:00 Pulse 84 12/31/22 08:00 Resp 16 12/31/22 08:00 BP 126/81 12/31/22 08:00 Pulse Ox 97 12/31/22 08:00 FiO2 21 12/28/22 09:06 Intake & Output 12/30/22 12/31/22 12/31/22 18:59 06:59 18:59 Intake Total 436 118 Output Total 925 1200 1200 Balance -116 -6851 -0529 Intake: IV 20 Invasive Line 1 10 Invasive Line 2 10 Oral 416 118 Output: Urine 925 1200 1200 Other: Voiding Method Indwelling Catheter Indwelling Catheter Indwelling Catheter # Bowel Movements 1 - Exam No acute distress, oriented 3. Currently on room air. No respiratory distress. HEENT examination is grossly unremarkable. Mucous membranes are moist. No oral lesions. Neck supple. Full range of motion. No adenopathy thyromegaly or neck vein distention. Cardiovascular examination reveals regular rhythm rate. S1-S2 normal. No S3 or S4. No discernible murmur noted. Heart rate 84 bpm. Lungs reveal clear breath sounds. Breath sounds are equal bilaterally. No adventitious lung sounds including wheezes rhonchi or crackles. Saturations are 97% on room air. Abdomen soft bowel sounds are heard. No masses or tenderness. Extremities are intact. No cyanosis clubbing or edema. Skin is without rash or lesion. Neurologic examination is brief but nonfocal. - Labs CBC & Chem 7: 12/31/22 08:03 12/31/22 08:03 Labs: Abnormal Lab Results - Last 24 Hours (Table) 12/30/22 12/30/22 12/31/22 Range/Units 15:14 15:14 08:03 Lymphocytes # 0.5 L (1.0-4.8) k/uL Glucose 129 H 137 H (74-99) mg/dL Calcium 8.3 L (8.4-10.2) mg/dL Microbiology - Last 24 Hours (Table) 12/27/22 08:10 Blood Culture - Preliminary Blood 12/27/22 08:18 Blood Culture - Preliminary Blood Assessment and Plan Assessment: Acute mental status changes, likely secondary to his history of glioblastoma multiform, and possible seizures. Acute aspiration pneumonia, improved. Patient tested positive for coronavirus infection. Chronic sinusitis. Plan: Plan dated 12/31/2022. In our opinion, the patient could be considered for possible discharge. He's on room air. He is getting saline at 75 mL an hour. The patient is placed on Augmentin 875 mg twice a day for a few more days. This culture data is negative. We will continue to follow make recommendations along the way. Prognosis is guarded. Time with Patient: Less than 30
--- NOTE | 2022-12-31 15:52 | P.DS ---
Providers Date of admission: 12/26/22 18:47 Expected date of discharge: 12/31/22 Attending physician: Alexus Powers MD Consults: 12/26/22 18:32 Consult Physician Routine Consulting Provider: Dwaine Castillo Consult Reason/Comments: known Do you want consulting provider notified?: Yes 12/26/22 18:34 Consult Physician Routine Consulting Provider: Danilo Dhaliwal Consult Reason/Comments: ams Do you want consulting provider notified?: Yes 12/27/22 07:58 Consult Physician Routine Consulting Provider: Kike Stearns Consult Reason/Comments: GBM Do you want consulting provider notified?: Yes 12/27/22 10:28 Consult Physician Routine Consulting Provider: Bry Murdock Consult Reason/Comments: COVID Do you want consulting provider notified?: Yes Hospital Course: Discharge Diagnosis: Toxic metabolic encephalopathy Left lower lobe pneumonia, possible gram-negative COVID-19 pneumonia Sinusitis Glioblastoma multiforme Hospital Course: Patient is a 57-year-old male with glioblastoma multiforme diagnosed January 2022 status post resection, chemotherapy, and radiation who is currently following with Dr. Castillo and requires clean intermittent self-catheterization who presented to the ER due to lethargy and word finding difficulty. On arrival to ER vitals were remarkable for pulse of 105. Laboratory analysis was remarkable for d-dimer of 1.5, BUN 21, glucose 112, urine drug screen was negative, COVID- 19 testing was positive. He underwent CT head which showed post treatment changes consistent with high-density foci in the surgical bed possible small hemorrhages versus complications. Chest x-ray showed right middle lobe opacities consistent with infiltrate. CTA head and neck showed no significant stenosis. CTA of the chest showed extensive infiltrate in the left lower lobe but no pulmonary embolism. He was admitted and was started on Unasyn 1 g every 6 hours. Neurology and radiation oncology were consulted. He was started on Decadron milligrams IV daily for his COVID-19. He underwent MRI of the brain which showed changes consistent with his known glioblastoma and possible acute ischemic change are on the left lateral margin. EEG was obtained which showed no definitive electrographic seizures but didn't show seizure potential. He had slow continued improvement with Decadron, Unasyn, and IV fluids. His mentation returned to baseline. Case was discussed with radiation oncology who felt there was no significant change in his MRI of the brain and he was appropriate for outpatient follow-up. He was satting well and hadn't returned to almost baseline. He was determined stable for discharge home. Follow-up: Discussed with him and his that he should hold his Temodar until see by Dr. Rodriguez. He will completed 5 more days of augment. He does nto require ongoing dexamethasone as he is stable on room air. He will follow with his PCP and Dr. Castillo in 1 week. He will see pulmonary if shortness of breath returns. Patient seen and examined at bedside. Doing well. No complete currently. present at bedside and all questions answered. They feel comfortable with him being discharged and having adequate follow-up at home. is very on top of his needs at home and has already been speaking with both his medical and radiation oncology team. Vital signs reviewed and stable. General: nontoxic, no distress, appears at stated age Cardiovascular: S1S2 reg, no murmur, positive posterior tibial pulse bilateral, Lungs: CTA bilateral, no rhonchi, no rales , no accessory muscle use Ext: no gross muscle atrophy, no edema b/l lower extremities, no contractures Neuro: CN II-XI grossly intact, no focal neuro deficits Psych: Alert, oriented, blunted affect A total of 45 minutes of time were spent preparing this complex discharge summary. Patient was discharged on 12/31/22. This dictation was prepared using [employer] voice recognition software. Though every attempt is made to correct errors during dictation some may still exist. Patient Condition at Discharge: Stable Plan - Discharge Summary New Discharge Prescriptions: New Amoxic-Pot Clav 875-125Mg [Augmentin 875-125] 1 each PO Q12HR #10 tab Continue Finasteride [Proscar] 5 mg PO HS Ondansetron [Zofran] 4 - 8 mg PO Q8H PRN PRN Reason: Nausea And Vomiting Temozolomide [Temodar] 250 mg PO DIRECTED Tamsulosin HCl [Flomax] 0.8 mg PO HS levETIRAcetam [Keppra] 1,000 mg PO BID Discharge Medication List Tamsulosin HCl [Flomax] 0.8 mg PO HS 01/30/22 [History] Finasteride [Proscar] 5 mg PO HS 12/26/22 [History] Ondansetron [Zofran] 4 - 8 mg PO Q8H PRN 12/26/22 [History] Temozolomide [Temodar] 250 mg PO DIRECTED 12/26/22 [History] levETIRAcetam [Keppra] 1,000 mg PO BID 12/26/22 [History] Amoxic-Pot Clav 875-125Mg [Augmentin 875-125] 1 each PO Q12HR #10 tab 12/31/22 [Rx] Follow up Appointment(s)/Referral(s): Bobby Dhaliwal DO [Doctor of Osteopathic Medicine] - As Needed (as need worsening breathing or concern for covid longhaulers. ) Dwaine Castillo MD [STAFF PHYSICIAN] - 1 Week (please call and schedule ) Zainab Rodriguez DO [REFERRING] - 1 Week (please call and schedule ) [facility] Visiting Nurse, [NON-STAFF] - (they will call and schedule. ) Patient Instructions/Handouts: Pneumonia (DC), COVID-19 (Coronavirus Disease 2019) (DC) Activity/Diet/Wound Care/Special Instructions: Activity: As tolerated Diet: regular Special Instructions: Hold Temodar Discharge Disposition: HOME SELF-CARE
--- NOTE | 2022-12-31 16:33 | P.PN ---
Subjective Progress Note Date: 12/31/22 Principal diagnosis: GBM. Acute Covid infection, confusion In follow-up today patient reports that he feels he is back to his baseline level of thinking/comprehension. He denies any headaches or seizure-like activity. Despite having covid he denies any shortness of breath or chest pain. Objective - Vital Signs Vital signs: Vital Signs Temp 97.7 F 12/31/22 08:00 Pulse 84 12/31/22 08:00 Resp 16 12/31/22 08:00 BP 126/81 12/31/22 08:00 Pulse Ox 97 12/31/22 08:00 FiO2 21 12/28/22 09:06 Intake & Output 12/30/22 12/31/22 12/31/22 18:59 06:59 18:59 Intake Total 436 118 Output Total 925 1200 1200 Balance -767 -1200 -1082 Intake: IV 20 Invasive Line 1 10 Invasive Line 2 10 Oral 416 118 Output: Urine 925 1200 1200 Other: Voiding Method Indwelling Catheter Indwelling Catheter Indwelling Catheter # Bowel Movements 1 - Constitutional General appearance: Present: average body habitus, cooperative, no acute distress - EENT Eyes: Present: anicteric sclerae, EOMI ENT: Present: hearing grossly normal - Respiratory Details: Respirations even and unlabored at rest - Musculoskeletal Musculoskeletal: Present: generalized weakness - Psychiatric Psychiatric: Present: A&O x's 3 - Labs CBC & Chem 7: 12/31/22 08:03 12/31/22 08:03 Labs: Abnormal Lab Results - Last 24 Hours (Table) 12/31/22 Range/Units 08:03 Glucose 137 H (74-99) mg/dL Microbiology - Last 24 Hours (Table) 12/27/22 08:10 Blood Culture - Preliminary Blood 12/27/22 08:18 Blood Culture - Preliminary Blood Assessment and Plan (1) Coronavirus infection Status: Acute Priority: High Code(s): B34.2 - CORONAVIRUS INFECTION, UNSPECIFIED SNOMED Code(s): 975665751 (2) Altered mental status Status: Acute Priority: High Code(s): R41.82 - ALTERED MENTAL STATUS, UNSPECIFIED SNOMED Code(s): 046969374 (3) Weakness Status: Acute Priority: High Code(s): R53.1 - WEAKNESS SNOMED Code(s): 76873981 (4) GBM (glioblastoma multiforme) Status: Chronic Priority: High Code(s): C71.9 - MALIGNANT NEOPLASM OF BRAIN, UNSPECIFIED SNOMED Code(s): 611309295 Plan: Altered mental status and weakness-Resolved -Suspect related to pneumonia/Covid infection, also urine suspicious for UTI. -Mental status is significantly improved since admission and treatment of infection GBM -Discussed case briefly with Radiation Oncologist. Patient is felt to be at baseline mental status -Oral Temodar to be held until patient has been treated adequately for pneumonia/covid, and UTI -Case discussed with Internal Medicine. Plans for discharge today. Patient's presenting symptoms have significantly improved. Agree with plan of care. Patient encouraged follow-up with his Primary Oncologist.
[2022-12-31] MEDS ORDERED: AMOXIC-POT CLAV 875-125MG 1 EACH TAB PO SCH (21:00)
== END 2022-12-31 11:50 | disposition home health service (06) | DRG 177 ==
LOC: EC 16:19 → 3SCARD 18:47
PROVIDERS: ADMIT Internal Medicine; ATTEND Internal Medicine
DX: U07.1 COVID-19 (principal); G92.8 Other toxic encephalopathy; J69.0 Pneumonitis due to inhalation of food and vomit; J12.82 Pneumonia due to coronavirus disease 2019; J15.6 Pneumonia due to other Gram-negative bacteria; C71.9 Malignant neoplasm of brain, unspecified; R47.01 Aphasia; N39.0 Urinary tract infection, site not specified; J32.4 Chronic pansinusitis; G40.909 Epilepsy, unspecified, not intractable, without status epilepticus; N40.1 Benign prostatic hyperplasia with lower urinary tract symptoms; H91.90 Unspecified hearing loss, unspecified ear; R33.8 Other retention of urine; Z79.899 Other long term (current) drug therapy; Z79.630 Long term (current) use of alkylating agent
CPT/HCPCS: 36415; 51702; 70450; 70496; 70498; 70553; 71045; 71275; 80048; 80053; 80306; 81001; 82550; 83735; 84100; 84145; 84484; 85025; 85027; 85379; 85610; 85730; 87040; 87636; 93005; 94760; 95816; 96365; 96367; 96375; 99291

== ENCOUNTER → 2023-02-19 | Outpatient (CLI) | payer BC ==
--- NOTE | 2023-02-19 11:02 | MR ---
EXAMINATION TYPE: MR brain wo/w con DATE OF EXAM: 02/19/2023 COMPARISON: 12/27/2022 HISTORY: Follow-up glioblastoma TECHNIQUE: Multiplanar, multisequence images of the brain and brainstem is performed without and with IV contras t, utilizing 6.5 mL intravenous Gadavist . FINDINGS: Redemonstrated left posterior parietal craniotomy flap with underlying resection cavity measuring pita roximately 4.7 cm craniocaudal and 2.3 cm wide. There is extensive heterogeneous signal along the margin of the resection cavity including areas of b right T1-weighted signal suggesting hemorrhagic debris. T2 shows some incomplete hemosiderin ring as seen previously. Peripheral linear micronodular enhancement along the cavity is slightly more promine nt. There is also some irregular postcontrast enhancement such as along the inferior and lateral margin. Overall pattern of enhancement is similar to prior exam. Mild interval increase in size of the previously described nodular abnormal signal along the left lat eral margin 2.1 x 1.8 cm and previously measuring 1.7 x 1.5 cm. This shows some peripheral enhancemen t, low T1-weighted signal, and restricted diffusion. Overall surrounding T2 bright white matter change extending to the posterior left frontal lobe and ar ound the atrium of the left lateral ventricle remains unchanged. Moderate scattered burden of chronic small vessel ischemic disease. No evidence for acute infarction remote from the region of prior surgery. No midline shift, herniation, or effacement of basal cistern s. Mild ventriculomegaly is unchanged, probably in part due to central cerebral atrophy. Punctate areas of abnormal signal bilaterally in the represent prominent Virchow-Chip spaces rather than tiny old lacunar infarct. Abnormal signal along the lateral margin of the left midbrain is jovanna tible vertebrobasilar system is diminutive in size which can be associated with vertebrobasilar insuf ficiency. Dural venous sinuses are patent. Midline structures demonstrate normal morphology. The craniocervical junction is normal. Moderate to severe mucosal thickening ethmoid air cells and left maxillary sinus . Globes are intact. IMPRESSION: 1. Posterior left parietal lobe resection cavity redemonstrated. The cavity is filled with hemorrhagi c material and fluid. Overall irregular postcontrast enhancement along the inferior and lateral maddy ns as well as the surrounding T2 bright white matter changes extending forward into the posterior lef t frontal lobe is similar with slight increased peripheral linear and micronodular enhancement relati ve to prior exam best noted on axial image T1 postcontrast 126. 2. There is slight interval increase in size of the previously described nodular area of abnormal sig nal along the left lateral margin of the resection cavity measuring 2.1 x 1.8 cm and previously rhonda uring 1.7 x 1.5 cm. This shows peripheral enhancement, low T1-weighted signal, and restricted diffusi on. A small area of adjacent acutely infarcted cortex is possible. Local progression not entirely exc luded at this time. Ongoing follow-up recommended. 3. Ventriculomegaly with a with a greater central component relative to the sulci. Mild hydrocephalus or normal pressure hydrocephalus in the differential diagnosis but stable from prior exam. 4. Remote ischemic white matter changes
== END | disposition home or self-care (01) ==
LOC: RADMRIMAIN 09:20
PROVIDERS: ATTEND Radiology Radiation Oncology
DX: C71.3 Malignant neoplasm of parietal lobe (principal); C71.0 Malignant neoplasm of cerebrum, except lobes and ventricles; G93.89 Other specified disorders of brain; G91.9 Hydrocephalus, unspecified; Z79.899 Other long term (current) drug therapy
CPT/HCPCS: 70553; A9585

== ENCOUNTER → 2023-04-30 | Outpatient (CLI) | payer BC ==
--- NOTE | 2023-04-30 12:06 | MR ---
EXAMINATION TYPE: MR brain wo/w con DATE OF EXAM: 04/30/2023 COMPARISON: Multiple MR brain with most recent 02/19/2023, CT brain 12/27/2022. HISTORY: Malignant neoplasm of parietal lobe. TECHNIQUE: Multiplanar, multisequence images of the brain and brainstem is performed without and with IV contras t, utilizing 6 mL intravenous Gadavist . FINDINGS: Redemonstrated left posterior parietal craniotomy flap with underlying resection cavity measuring pita roximately 4.5 cm craniocaudal and 2.7 cm wide. There is again extensive heterogeneous signal along the margin of the resection cavity including area s of increased T1-weighted signal suggesting hemorrhagic debris. Susceptibility weighted imaging show s some incomplete hemosiderin ring as seen previously. Peripheral linear micronodular enhancement emily ng the cavity is redemonstrated and similar to prior exam. Irregular postcontrast enhancement redemonstrated along the inferior and lateral margin. Overall annita stewart of enhancement is similar to prior exam. Stable size of previously described nodular abnormal signal along the left lateral margin 2.1 x 1.7 c m and previously measuring 2.1 x 1.8 cm. This again shows some peripheral enhancement, low T1-weighte d signal, and restricted diffusion. Overall surrounding T2/FLAIR hyperintense white matter change extending to the posterior left frontal lobe and around the atrium of the left lateral ventricle remains unchanged. Moderate scattered burden of chronic small vessel ischemic disease redemonstrated and not significant changed. No evidence for acute infarction. No midline shift, herniation, or effacement of basal cisterns. Mild ventriculomegaly is unchanged, probably related to central cerebral atrophy. Punctate areas of abnormal signal again present bilaterally and favored to represent prominent Vircho w-Chip spaces rather than tiny old lacunar infarct. Abnormal signal along the lateral margin of the left midbrain again demonstrated and is compatible with vertebrobasilar system is diminutive in size which can be associated with vertebrobasilar insufficiency. Dural venous sinuses are patent. Midline structures demonstrate normal morphology. The craniocervical junction is normal. Moderate to severe mucosal thickening ethmoid air cells and left maxillary sinus again demonstrated. Globes are intact. IMPRESSION: 1. Posterior left parietal lobe resection cavity redemonstrated containing hemorrhagic material fluid . Overall similar irregular postcontrast enhancement along the inferior and lateral margins as well a s the surrounding T2 /FLAIR hyperintense white matter changes extending forward into the posterior le ft frontal lobe. 2. Similar size of the previously described nodular area of abnormal signal along the left lateral ma rgin of the resection cavity measuring 2.1 x 1.7 cm and previously measuring 2.1 x 1.8 cm. This agai n shows peripheral enhancement, low T1-weighted signal, and restricted diffusion. This is suspicious for residual disease. Continued follow-up is recommended. 3. Stable ventriculomegaly. 4. Remote ischemic white matter changes
== END | disposition home or self-care (01) ==
LOC: RADMRIMAIN 10:24
PROVIDERS: ATTEND Radiology Radiation Oncology
DX: C71.3 Malignant neoplasm of parietal lobe (principal); G93.89 Other specified disorders of brain; I67.82 Cerebral ischemia; Z79.899 Other long term (current) drug therapy
CPT/HCPCS: 70553; A9585

== ENCOUNTER 2023-05-22 10:25 | Inpatient (IN) | payer BC ==
--- NOTE | 2023-05-22 12:25 | ED ---
Weakness HPI - General Source: patient, family, RN notes reviewed Mode of arrival: ambulatory Limitations: no limitations - History of Present Illness MD Complaint: generalized weakness <Kelly Salazar - Last Filed: 05/22/23 12:27> <David Kirby - Last Filed: 05/22/23 17:52> - General Chief complaint: Weakness Stated complaint: Weakness Time Seen by Provider: 05/22/23 12:24 - History of Present Illness Initial comments: This is a 57-year-old male who presents to the emergency department for generalized weakness. Patient was diagnosed with a UTI a little over 2 weeks a go, but had been feeling weak for a few days prior to that, and his is concerned that he may still have a urinary tract infection. Additionally, the patient has brain cancer is currently being treated with chemotherapy. (Kelly Salazar) 57-year-old male with a past medical history significant for glioblastoma multiforme and currently on chemotherapy presenting to the ED with a chief complaint of generalized weakness. Per patient's , was being treated for UTI approximately 2 weeks ago. At this time, he was having complaints of generalized weakness and was found to have a UTI. Was being treated with Bactrim and patient's initially noted some improvement of symptoms however now notes symptoms have returned. States that the patient is normally able to get up on his own and do ADLs however notes that he has been so weak he has been unable to do so. Patient is unsure if he is having dysuria, urgency, frequency as he notes that he normally uses a catheter to urinate. Patient's notes that since craniotomy in 2021 has had trouble urinating and has had to use catheters to urinate since. Denies fever or chills. Denies hematemesis. No chest pain or shortness of breath. (David Kirby) - Related Data Home Medications Medication Instructions Recorded Confirmed Tamsulosin HCl [Flomax] 0.4 mg PO BID 01/30/22 05/22/23 Finasteride [Proscar] 5 mg PO HS 12/26/22 05/22/23 Ondansetron [Zofran] 4 - 8 mg PO Q8H PRN 12/26/22 05/22/23 Temozolomide [Temodar] 250 mg PO DIRECTED 12/26/22 05/22/23 Albuterol Inhaler [Ventolin Hfa 1 - 2 puff INHALATION RT-Q6H PRN 05/22/23 05/22/23 Inhaler] Mvasi (Bevacizumab-Awwb) 1 dose IV Q21D 05/22/23 05/22/23 Allergies Allergy/AdvReac Type Severity Reaction Status Date / Time No Known Allergies Allergy Verified 05/22/23 15:02 Review of Systems ROS Other: All systems not noted in ROS Statement are negative. <Kelly Salazar - Last Filed: 05/22/23 12:27> ROS Other: All systems not noted in ROS Statement are negative. <David Kirby - Last Filed: 05/22/23 17:52> ROS Statement: Those systems with pertinent positive or pertinent negative responses have been documented in the HPI. Past Medical History Past Medical History: No Reported History, Cancer Additional Past Medical History / Comment(s): GBM 02/02/2022 History of Any Multi-Drug Resistant Organisms: None Reported Past Surgical History: No Surgical Hx Reported Additional Past Surgical History / Comment(s): crainiotomy 02/06/22 Past Psychological History: No Psychological Hx Reported Smoking Status: Never smoker Past Alcohol Use History: Occasional Past Drug Use History: None Reported - Past Family History Mother Family Medical History: Unable to Obtain (due to patient's mental status) <Kelly Salazar - Last Filed: 05/22/23 12:27> General Exam Limitations: no limitations <Kelly Saalzar - Last Filed: 05/22/23 12:27> General appearance: alert, in no apparent distress Neck exam: Present: normal inspection Respiratory exam: Present: normal lung sounds bilaterally Cardiovascular Exam: Present: regular rate GI/Abdominal exam: Present: soft Extremities exam: Present: normal inspection Neurological exam: Present: alert, oriented X3 Skin exam: Present: warm, dry <David Kirby - Last Filed: 05/22/23 17:52> - General Exam Comments Initial Comments: Visual Physical Exam Vital signs reviewed General: Well-appearing, nontoxic, no acute distress. Head: Normocephalic, atraumatic Eyes: PERRLA, EOMI ENT: Airway patent Chest: Nonlabored breathing Skin: No visual rash, normal skin tone Neuro: Alert and oriented 3 Musculoskeletal: No gross abnormalities I performed the QuickNote portion of this chart. Signed Kelly Salazar PA-C. (Kelly Salazar) Course Vital Signs 05/22/23 05/22/23 05/22/23 10:51 14:07 14:43 Temperature 97.4 F L 99.2 F Pulse Rate 87 77 75 Respiratory 18 14 14 Rate Blood Pressure 134/94 143/94 148/98 O2 Sat by Pulse 95 97 96 Oximetry 05/22/23 16:38 Temperature 99.1 F Pulse Rate 79 Respiratory 16 Rate Blood Pressure 144/95 O2 Sat by Pulse 97 Oximetry Medical Decision Making - Lab Data Result diagrams: 05/22/23 12:35 05/22/23 12:35 <David Kirby - Last Filed: 05/22/23 17:52> - Medical Decision Making Was pt. sent in by a medical professional or institution ([facility], [facility] [employer], urgent care, hospital, or halfway...) When possible be specific @ -No Did you speak to anyone other than the patient for history (EMS, parent, family, police, friend...)? What history was obtained from this source @ -No Did you review nursing and triage notes (agree or disagree)? Why? @ -I reviewed and agree with nursing and triage notes Were old charts reviewed (outside hosp., previous admission, EMS record, old EKG, old radiological studies, urgent care reports/EKG's, halfway records)? Report findings @ -No old charts were reviewed Differential Diagnosis (chest pain, altered mental status, abdominal pain women, abdominal pain men, vaginal bleeding, weakness, fever, dyspnea, syncope, headache, dizziness, GI bleed, back pain, seizure, CVA, palpatations, mental health, musculoskeletal)? @ -Differential Weakness: Hypoglycemia, shock, sepsis, hyponatremia, anemia, infection, [place], ETOH, adverse medicine reaction, overdose, stroke, this is not meant to be an all-inclusive list. EKG interpreted by me (3pts min.). @ -As above X-rays interpreted by me (1pt min.). @ -None done CT interpreted by me (1pt min.). @ -None done U/S interpreted by me (1pt. min.). @ -None done What testing was considered but not performed or refused? (CT, X-rays, U/S, labs )? Why? @ -None What meds were considered but not given or refused? Why? @ -None Did you discuss the management of the patient with other professionals (professionals i.e. , PA, [employer], lab, RT, psych nurse, social sciences instructor, travel registered nurse icu, teacher, bank operations officer, case managers)? Give summary @ -Spoke to oncology who advised if patient were to be admitted to hold cancer meds otherwise no further recommendations. Spoke to [facility] who accepted the patient. [facility] typically covers patients for Dr. Simpson on the weekend. Dr. Simpson aware. Was smoking cessation discussed for >3mins.? @ -No Was critical care preformed (if so, how long)? @ -No Were there social determinants of health that impacted care today? How? (Homel essness, low income, unemployed, alcoholism, drug addiction, transportation, low edu. Level, literacy, decrease access to med. care, custodial, rehab)? @ -No Was there de-escalation of care discussed even if they declined (Discuss DNR or withdrawal of care, Hospice)? DNR status @ -No What co-morbidities impacted this encounter? (DM, HTN, Smoking, COPD, CAD, Cancer, CVA, ARF, Chemo, Hep., AIDS, mental health diagnosis, sleep apnea, morbid obesity)? @ -None Was patient admitted / discharged? Hospital course, mention meds given and route, prescriptions, significant lab abnormalities, going to OR and other pertinent info. @ -Admission 57-year-old male with a past medical history significant for a Glioblastoma Multiforme presenting to the ED with a chief complaint of generalized weakness. Patient had a craniotomy in 2021. Since then patient family reports that he has been unable to urinate normally and has to cath every day. Patient's notes generalized weakness approximately 2 weeks ago and was found to have a UTI and was treated with Bactrim. While taking antibiotics, noted some improvement of symptoms however after finishing antibiotics reports symptoms have returned and states that the patient is normally able to stand up on his own and do ADLs. Patient's currently states that he is now too weak to even get out of bed which is not his baseline. Laboratory studies significant for an elevated white blood cell count at 15.9, neutrophils elevated at 14.9, urine does appear consistent with infection with positive nitrite, large leukocyte Estrace, greater than 182 white blood cells, many white blood cell clumps, many bacteria, and only 1 squamous epithelial cell. Patient started on IV Rocephin in the ED. Cultures obtained. Patient will be admitted to observation with consult to infectious disease. Discussed plan of care with patient and family who are in agreement. Undiagnosed new problem with uncertain prognosis? @ -No Drug Therapy requiring intensive monitoring for toxicity (Heparin, Nitro, Insulin, Cardizem)? @ -No Were any procedures done? @ -No Diagnosis/symptom? @ -Urinary tract infection, generalized weakness Acute, or Chronic, or Acute on Chronic? @ -Acute Uncomplicated (without systemic symptoms) or Complicated (systemic symptoms)? @ -Uncomplicated Side effects of treatment? @ -No Exacerbation, Progression, or Severe Exacerbation? @ -No Poses a threat to life or bodily function? How? (Chest pain, [place], [place], pneumonia, PE, COPD, DKA, ARF, appy, cholecystitis, CVA, Diverticulitis, Homicidal, Suicidal, threat to staff... and all critical care pts) @ -No (David Kirby) - Lab Data Lab Results 05/22/23 05/22/23 05/22/23 Range/Units 12:35 12:35 12:35 WBC 15.9 H (3.8-10.6) k/uL RBC 5.28 (4.30-5.90) m/uL Hgb 16.4 (13.0-17.5) gm/dL Hct 49.1 (39.0-53.0) % MCV 92.9 (80.0-100.0) fL MCH 31.2 (25.0-35.0) pg MCHC 33.5 (31.0-37.0) g/dL RDW 13.1 (11.5-15.5) % Plt Count 423 (150-450) k/uL MPV 7.1 Neutrophils % 94 % Lymphocytes % 2 % Monocytes % 3 % Eosinophils % 0 % Basophils % 0 % Neutrophils # 14.9 H (1.3-7.7) k/uL Lymphocytes # 0.4 L (1.0-4.8) k/uL Monocytes # 0.4 (0-1.0) k/uL Eosinophils # 0.1 (0-0.7) k/uL Basophils # 0.0 (0-0.2) k/uL PT (10.0-12.5) sec INR (<1.2) APTT (22.0-30.0) sec Sodium 137 (137-145) mmol/L Potassium 4.8 (3.5-5.1) mmol/L Chloride 99 (98-107) mmol/L Carbon Dioxide 26 (22-30) mmol/L Anion Gap 12 mmol/L BUN 28 H (9-20) mg/dL Creatinine 0.70 (0.66-1.25) mg/dL Est GFR (CKD-EPI)AfAm >90 (>60 ml/min/1.73 sqM) Est GFR (CKD-EPI)NonAf >90 (>60 ml/min/1.73 sqM) Glucose 142 H (74-99) mg/dL Plasma Lactic Acid Stone 1.8 (0.7-2.0) mmol/L Calcium 9.9 (8.4-10.2) mg/dL Magnesium 2.2 (1.6-2.3) mg/dL Total Bilirubin 0.5 (0.2-1.3) mg/dL AST 20 (17-59) U/L ALT 14 (4-49) U/L Alkaline Phosphatase 71 (38-126) U/L Troponin I (0.000-0.034) ng/mL Total Protein 7.4 (6.3-8.2) g/dL Albumin 4.6 (3.5-5.0) g/dL Urine Color Urine Appearance (Clear) Urine pH (5.0-8.0) Ur Specific [place] (1.001-1.035) Urine Protein (Negative) Urine Glucose (UA) (Negative) Urine Ketones (Negative) Urine Blood (Negative) Urine Nitrite (Negative) Urine Bilirubin (Negative) Urine Urobilinogen (<2.0) mg/dL Ur Leukocyte Esterase (Negative) Urine RBC (0-5) /hpf Urine WBC (0-5) /hpf Urine WBC Clumps (None) /hpf Ur Squamous Epith Cells (0-4) /hpf Urine Bacteria (None) /hpf Hyaline Casts (0-2) /lpf Urine Mucus (None) /hpf 05/22/23 05/22/23 05/22/23 Range/Units 14:39 14:42 14:42 WBC (3.8-10.6) k/uL RBC (4.30-5.90) m/uL Hgb (13.0-17.5) gm/dL Hct (39.0-53.0) % MCV (80.0-100.0) fL MCH (25.0-35.0) pg MCHC (31.0-37.0) g/dL RDW (11.5-15.5) % Plt Count (150-450) k/uL MPV Neutrophils % % Lymphocytes % % Monocytes % % Eosinophils % % Basophils % % Neutrophils # (1.3-7.7) k/uL Lymphocytes # (1.0-4.8) k/uL Monocytes # (0-1.0) k/uL Eosinophils # (0-0.7) k/uL Basophils # (0-0.2) k/uL PT 11.3 (10.0-12.5) sec INR 1.0 (<1.2) APTT 24.4 (22.0-30.0) sec Sodium (137-145) mmol/L Potassium (3.5-5.1) mmol/L Chloride (98-107) mmol/L Carbon Dioxide (22-30) mmol/L Anion Gap mmol/L BUN (9-20) mg/dL Creatinine (0.66-1.25) mg/dL Est GFR (CKD-EPI)AfAm (>60 ml/min/1.73 sqM) Est GFR (CKD-EPI)NonAf (>60 ml/min/1.73 sqM) Glucose (74-99) mg/dL Plasma Lactic Acid Stone (0.7-2.0) mmol/L Calcium (8.4-10.2) mg/dL Magnesium (1.6-2.3) mg/dL Total Bilirubin (0.2-1.3) mg/dL AST (17-59) U/L ALT (4-49) U/L Alkaline Phosphatase (38-126) U/L Troponin I <0.012 (0.000-0.034) ng/mL Total Protein (6.3-8.2) g/dL Albumin (3.5-5.0) g/dL Urine Color Yellow Urine Appearance Turbid (Clear) Urine pH 5.0 (5.0-8.0) Ur Specific [place] 1.024 (1.001-1.035) Urine Protein 1+ H (Negative) Urine Glucose (UA) Negative (Negative) Urine Ketones Negative (Negative) Urine Blood Small H (Negative) Urine Nitrite Positive (Negative) Urine Bilirubin Negative (Negative) Urine Urobilinogen <2.0 (<2.0) mg/dL Ur Leukocyte Esterase Large H (Negative) Urine RBC 11 H (0-5) /hpf Urine WBC >182 H (0-5) /hpf Urine WBC Clumps Many H (None) /hpf Ur Squamous Epith Cells 1 (0-4) /hpf Urine Bacteria Many H (None) /hpf Hyaline Casts 5 H (0-2) /lpf Urine Mucus Many H (None) /hpf - EKG Data EKG Comments: EKG shows a sinus rhythm at [address]-T wave changes. PA with his 4, QRS 90, QT/QTc 367/396. (David Kirby) Disposition <Kelly Salazar - Last Filed: 05/22/23 12:27> Time of Disposition: 17:52 <David Kirby - Last Filed: 05/22/23 17:52> Clinical Impression: Fatigue, UTI (urinary tract infection) Disposition: ADMITTED IP TO THIS HOSP Referrals: Mary Saleh DO [Primary Care Provider] - 1-2 days
[2023-05-22 12:55] LABS: Basophils % (A) 0 %; Eosinophils # (A) 0.1 k/uL (0-0.7); Eosinophils % (A) 0 %; HCT 49.1 % (39.0-53.0); HGB 16.4 gm/dL (13.0-17.5); Lymphocytes # (A) 0.4 k/uL (1.0-4.8); Lymphocytes % (A) 2 %; MCH 31.2 pg (25.0-35.0); MCHC 33.5 g/dL (31.0-37.0); MCV 92.9 fL (80.0-100.0); Mean Platelet Volume 7.1; Monocytes # (A) 0.4 k/uL (0-1.0); Monocytes % (A) 3 %; Neutrophils # (A) 14.9 k/uL (1.3-7.7); Neutrophils % (A) 94 %; Platelet Count 423 k/uL (150-450); RBC 5.28 m/uL (4.30-5.90); RDW 13.1 % (11.5-15.5); WBC 15.9 k/uL (3.8-10.6)
[2023-05-22 13:20] LABS: ALT 14 U/L (4-49); AST 20 U/L (17-59); African American GFR (CKD) >90 (>60 ml/min/1.73 sqM); Albumin 4.6 g/dL (3.5-5.0); Alkaline Phosphatase 71 U/L (38-126); Anion Gap 12 mmol/L; Blood Urea Nitrogen 28 mg/dL (9-20); Calcium 9.9 mg/dL (8.4-10.2); Carbon Dioxide 26 mmol/L (22-30); Chloride 99 mmol/L (98-107); Glucose 142 mg/dL (74-99); Magnesium 2.2 mg/dL (1.6-2.3); Non-African American GFR(CKD) >90 (>60 ml/min/1.73 sqM); Potassium 4.8 mmol/L (3.5-5.1); Sodium 137 mmol/L (137-145); Total Bilirubin 0.5 mg/dL (0.2-1.3); Total Protein 7.4 g/dL (6.3-8.2)
[2023-05-22 16:21] LABS: Partial Thromboplastin Time 24.4 sec (22.0-30.0); Prothrombin Time 11.3 sec (10.0-12.5)
[2023-05-22 16:29] LABS: Appearance,Urine Turbid (Clear); Bacteria,Urine Many /hpf; Bilirubin,Urine Negative (Negative); Blood,Urine Small (Negative); Color,Urine Yellow; Glucose,Urine (UA) Negative (Negative); Hyaline Casts,Urine 5 /lpf (0-2); Ketones,Urine Negative (Negative); Leukocyte Esterase,Urine Large (Negative); Mucus,Urine Many /hpf; Nitrite,Urine Positive (Negative); Protein,Urine 1+ (Negative); RBC,Urine 11 /hpf (0-5); Specific Gravity,Urine 1.024 (1.001-1.035); Squamous Epithelial Cell,Urine 1 /hpf (0-4); Urobilinogen,Urine <2.0 mg/dL (<2.0); WBC,Urine >182 /hpf (0-5)
[2023-05-22] MEDS ORDERED: ACETAMINOPHEN TAB 325 MG TAB PO PRN (17:42)
[2023-05-22] MEDS ORDERED: HYDROmorphone 0.5 MG/0.5 ML SYRINGE IVP PRN (17:42)
[2023-05-22] MEDS ORDERED: NALOXONE 0.4 MG/ML 1 ML VIAL IV PRN (17:42)
[2023-05-22] MEDS ORDERED: HYDROmorphone 1 MG/ML 1 ML SYRINGE IVP PRN (17:42)
[2023-05-22] MEDS: SODIUM CHLORIDE 0.9% 1,000 ML IV SCH (18:10)
[2023-05-23] MEDS: SODIUM CHLORIDE 0.9% 1,000 ML IV SCH ×2 (07:45→20:07)
[2023-05-23] MEDS ORDERED: TEMOZOLOMIDE 250 MG PO SCH (14:45)
--- NOTE | 2023-05-23 14:56 | P.HPIM ---
History of Present Illness H&P Date: 05/23/23 Chief Complaint: Generalized weakness, UTI This is a 57-year-old gentleman with past medical history significant for recently diagnosed GBM undergoing chemotherapy with Temodar, admitted with altered mental status, acute UTI and generalized weakness. Recently treated for UTI over 2 weeks ago, treated with Bactrim. Requires straight cathing at home per as per ER report. Afebrile, T-max 99.2, WBC 15.9, hemoglobin 16.4, platelets 423. Sodium 137, potassium 4.8, BUN 28, creatinine 0.7 glucose 142, lactic acid 1.8 magnesium 2.2. EKG reported sinus rhythm, troponin negative 1. UA report. Positive nitrates, large leukocyte esterase ,182 WBCs. Patient alert and oriented to self ,Denies any chest pain, palpitations or shortness of breath. Denies headache,blurred vision or seizure-like activity. Denies dizziness. Denies abdominal pain. Rocephin initiated in the ER. ER discussed with oncology, recommended holding cancer meds at this time. Review of Systems Review of Systems ROS unobtainable: due to mental status Past Medical History Past Medical History: Cancer Additional Past Medical History / Comment(s): GBM 02/02/2022 History of Any Multi-Drug Resistant Organisms: None Reported Past Surgical History: No Surgical Hx Reported Additional Past Surgical History / Comment(s): crainiotomy 02/06/22 Past Anesthesia/Blood Transfusion Reactions: Unable to Obtain Past Psychological History: Unable to Obtain Smoking Status: Never smoker Past Alcohol Use History: Unable to Obtain Past Drug Use History: Unable to Obtain - Past Family History Mother Family Medical History: Unable to Obtain Medications and Allergies Home Medications Medication Instructions Recorded Confirmed Type Tamsulosin HCl [Flomax] 0.4 mg PO BID 01/30/22 05/22/23 History Finasteride [Proscar] 5 mg PO HS 12/26/22 05/22/23 History Ondansetron [Zofran] 4 - 8 mg PO Q8H PRN 12/26/22 05/22/23 History Temozolomide [Temodar] 250 mg PO DIRECTED 12/26/22 05/22/23 History Albuterol Inhaler [Ventolin Hfa 1 - 2 puff INHALATION RT-Q6H PRN 05/22/23 05/22/23 History Inhaler] Mvasi (Bevacizumab-Awwb) 1 dose IV Q21D 05/22/23 05/22/23 History Allergies Allergy/AdvReac Type Severity Reaction Status Date / Time No Known Allergies Allergy Verified 05/22/23 15:02 Physical Exam Vitals: Vital Signs Temp Pulse Pulse Resp BP BP Pulse Ox 05/23/23 07:32 98.7 F 61 18 138/84 98 05/23/23 02:08 98.5 F 83 16 131/85 94 L 05/22/23 22:06 98.9 F 71 18 147/91 98 05/22/23 19:58 79 16 144/90 98 05/22/23 18:03 98.4 F 82 16 136/96 97 05/22/23 16:38 99.1 F 79 16 144/95 97 05/22/23 14:43 75 14 148/98 96 Intake and Output 05/22/23 05/23/23 05/23/23 22:59 06:59 14:59 Intake Total 0 Balance 0 Intake: Oral 0 Other: Weight 61.235 kg PHYSICAL EXAM: VITAL SIGNS: [As above] GENERAL: 57-year-old gentleman sitting up in bed, alert and oriented 1, no acute distress HEENT: Normocephalic Conjunctivae normal. eyes normal. NECK: Supple, No JVD. No thyroid enlargement. No LNs CARDIOVASCULAR: S1, S2 regular.No murmur RESPIRATION: Unlabored ,Breath sounds diminished in the bases. No rhonchi or crackles. No bronchial breathing. ABDOMEN: Soft, nontender . No guarding. no masses palpable. No ascites, No hepatosplenomegaly.Bowel sounds heard. LEGS: No edema. no swelling PSYCHIATRY: Alert and oriented X1, pleasantly confused NERVOUS SYSTEM: Limited exam, patient alert and oriented 1. Skin: Warm and dry, no rash Results CBC & Chem 7: 05/22/23 12:35 05/22/23 12:35 Labs: Abnormal Lab Results - Last 24 Hours (Table) 05/22/23 Range/Units 14:39 Urine Protein 1+ H (Negative) Urine Blood Small H (Negative) Ur Leukocyte Esterase Large H (Negative) Urine RBC 11 H (0-5) /hpf Urine WBC >182 H (0-5) /hpf Urine WBC Clumps Many H (None) /hpf Urine Bacteria Many H (None) /hpf Hyaline Casts 5 H (0-2) /lpf Urine Mucus Many H (None) /hpf Thrombosis Risk Factor Assmnt - Choose All That Apply Any of the Below Risk Factors Present?: Yes Each Factor Represents 1 point: Age 41-60 years Other Risk Factors: No Other congenital or acquired thrombophilia - If yes, enter type in comment: No Thrombosis Risk Factor Assessment Total Risk Factor Score: 1 Thrombosis Risk Factor Assessment Level: Low Risk Assessment and Plan Assessment: Altered mental status, metabolic encephalopathy, suspect related to his underlying glioblastoma multiform, and acute UTI, possibly related to straight cath. required at home . Recently treated for acute UTI approximately 2 weeks ago. History of GBM, status post resection, currently on chemotherapy with Temodar. History of COVID-19 Plan: Continue on current medication regime ,monitoring and symptomatic treatment. IV ceftriaxone, IV fluid hydration and continue following blood and urine cultures. Oncology recommends holding Temodar as per ER. Infectious disease consult in place.PT/OT consulted. The impression and plan of care has been dictated as directed. : I performed a history and examination of this patient, discussed the same with the dictator. I agree with the dictator's note ,documented as a scribe. Any additional findings or plans will be noted.
[2023-05-23] MEDS: TAMSULOSIN 0.4 MG CAP.ER.24H PO SCH (20:54)
[2023-05-23] MEDS: FINASTERIDE 5 MG TAB PO SCH (20:55)
[2023-05-23] MEDS: NYSTATIN 100,000 UNIT/ML SUSP 500,000 UNIT/5 ML CUP PO SCH (21:16)
--- NOTE | 2023-05-23 23:04 | P.CONS ---
History of Present Illness - Reason for Consult Consult date: 05/23/23 UTI outpatient failure Requesting physician: David Kirby - Chief Complaint Weakness and mental status changes x 1 day - History of Present Illness Patient is a 57-year-old male with a past medical history significant for recent diagnosis of glioblastoma multiforme he undergoing chemotherapy patient was brought into the hospital for evaluation of generalized weakness and mental status changes with recently treated for UTI with the Bactrim patient did have urine retention requiring straight cath at home with the symptoms the patient has been brought into the ER on presentation to the hospital patient did have a low-grade fever of 99.2 degrees following night patient was not tachycardic hypotensive or hypoxic he did have vital of 15.9 with a left shift c reatinine 0.70 liver enzymes are normal urine was positive patient did receive a dose of Rocephin in the ER infectious he was consulted for further management of antibiotic therapy patient himself evaluated good historian as he did denied most of the symptom when asked specifically denies any headache or URI symptoms no chest pain shortness of breath or cough no abdominal pain or diarrhea Review of Systems Positive point and negatives has been mentioned in the HPI, complete review of systems was performed and all other systems are negative Past Medical History Past Medical History: Cancer Additional Past Medical History / Comment(s): GBM 02/02/2022 History of Any Multi-Drug Resistant Organisms: None Reported Past Surgical History: No Surgical Hx Reported Additional Past Surgical History / Comment(s): crainiotomy 02/06/22 Past Anesthesia/Blood Transfusion Reactions: Unable to Obtain Past Psychological History: Unable to Obtain Smoking Status: Never smoker Past Alcohol Use History: Unable to Obtain Past Drug Use History: Unable to Obtain - Past Family History Mother Family Medical History: Unable to Obtain Medications and Allergies Home Medications Medication Instructions Recorded Confirmed Type Tamsulosin HCl [Flomax] 0.4 mg PO BID 01/30/22 05/22/23 History Finasteride [Proscar] 5 mg PO HS 12/26/22 05/22/23 History Ondansetron [Zofran] 4 - 8 mg PO Q8H PRN 12/26/22 05/22/23 History Temozolomide [Temodar] 250 mg PO DIRECTED 12/26/22 05/22/23 History Albuterol Inhaler [Ventolin Hfa 1 - 2 puff INHALATION RT-Q6H PRN 05/22/23 05/22/23 History Inhaler] Mvasi (Bevacizumab-Awwb) 1 dose IV Q21D 05/22/23 05/22/23 History Acetaminophen Tab [Tylenol] 650 mg PO Q6HR PRN tab 05/27/23 Rx Nystatin 100,000 Unit/ml Susp 500,000 unit PO QID ml 05/27/23 Rx [Mycostatin Oral Susp] Pantoprazole [Protonix] 40 mg PO AC-BRKFST tab 05/27/23 Rx cefUROXime axetiL [Ceftin] 500 mg PO BID 7 Days #14 tab 05/27/23 Rx Allergies Allergy/AdvReac Type Severity Reaction Status Date / Time No Known Allergies Allergy Verified 05/22/23 15:02 Physical Exam Vitals: Vital Signs Temp Pulse Pulse Resp BP BP Pulse Ox 05/23/23 07:32 98.7 F 61 18 138/84 98 05/23/23 02:08 98.5 F 83 16 131/85 94 L 05/22/23 22:06 98.9 F 71 18 147/91 98 05/22/23 19:58 79 16 144/90 98 05/22/23 18:03 98.4 F 82 16 136/96 97 05/22/23 16:38 99.1 F 79 16 144/95 97 05/22/23 14:43 75 14 148/98 96 05/22/23 14:07 99.2 F 77 14 143/94 97 05/22/23 10:51 97.4 F L 87 18 134/94 95 Intake and Output 05/22/23 05/23/23 05/23/23 22:59 06:59 14:59 Intake Total 0 Balance 0 Intake: Oral 0 Other: Weight 61.235 kg GENERAL DESCRIPTION: Middle-aged male lying in bed, no distress. No tachypnea or accessory muscle of respiration use. HEENT: Shows Pallor , no scleral icterus. Oral mucous membrane is dry. No pharyngeal erythema or thrush NECK: Trachea central, no thyromegaly. LUNGS: Unlabored breathing. Clear to auscultation anteriorly. No wheeze or crackle. HEART: S1, S2, regular rate and rhythm. No loud murmur ABDOMEN: Soft, no tenderness , guarding or rigidity, no organomegaly EXTREMITIES: No edema of feet. SKIN: No rash, no masses palpable. NEUROLOGICAL: The patient is lethargic but arousable, mood and affect normal. Results CBC & Chem 7: 05/24/23 05:47 05/24/23 05:47 Labs: Abnormal Lab Results - Last 24 Hours (Table) 05/22/23 05/22/23 05/22/23 Range/Units 12:35 12:35 14:39 WBC 15.9 H (3.8-10.6) k/uL Neutrophils # 14.9 H (1.3-7.7) k/uL Lymphocytes # 0.4 L (1.0-4.8) k/uL BUN 28 H (9-20) mg/dL Glucose 142 H (74-99) mg/dL Urine Protein 1+ H (Negative) Urine Blood Small H (Negative) Ur Leukocyte Esterase Large H (Negative) Urine RBC 11 H (0-5) /hpf Urine WBC >182 H (0-5) /hpf Urine WBC Clumps Many H (None) /hpf Urine Bacteria Many H (None) /hpf Hyaline Casts 5 H (0-2) /lpf Urine Mucus Many H (None) /hpf Assessment and Plan (1) UTI (urinary tract infection) Current Visit: Yes Status: Acute Code(s): N39.0 - URINARY TRACT INFECTION, SITE NOT SPECIFIED SNOMED Code(s): 56964042 Plan: 1patient presented to hospital with weakness mental status changes in this patient who did have a history of urinary outflow obstruction requiring self cath did have a positive UA concerning for symptomatic UTI failing outpatient Bactrim DS therapy. 2we will start the patient on Rocephin 2 g daily while waiting for the culture to finalize 3-gentle IV fluid We will follow on clinical condition and cultures to further adjust medication if needed Thank you for this consultation we will follow the patient along with you Dictation was produced using [employer] dictation software. please excuse any grammatical, word or spelling errors. Time with Patient: Greater than 30
[2023-05-24 08:45] LABS: BUN/Creat Ratio 28.86 Ratio (12.00-20.00); Blood Urea Nitrogen 20.2 mg/dL (9.0-27.0); Calcium 8.9 mg/dL (8.7-10.3); Carbon Dioxide 24.2 mmol/L (21.6-31.8); Chloride 106 mmol/L (96-109); Glucose 100 mg/dL (70-110); Sodium 140 mmol/L (135-145)
[2023-05-24] MEDS: TAMSULOSIN 0.4 MG CAP.ER.24H PO SCH ×2 (08:49→21:30)
[2023-05-24] MEDS: NYSTATIN 100,000 UNIT/ML SUSP 500,000 UNIT/5 ML CUP PO SCH ×4 (08:50→21:30)
[2023-05-24 08:55] LABS: Basophils # (A) 0.07 X 10*3/uL (0.00-0.10); Basophils % (A) 0.9 %; Eosinophils # (A) 0.14 X 10*3/uL (0.04-0.35); Eosinophils % (A) 1.7 %; HCT 41.7 % (39.6-50.0); HGB 13.7 d/dL (13.0-17.0); Lymphocytes % (A) 12.5 %; MCH 30.2 pg (27.0-32.0); MCHC 32.9 d/dL (32.0-37.0); MCV 91.9 FL (80.0-97.0); Mean Platelet Volume 9.1 FL (9.5-12.2); Monocytes # (A) 0.75 X 10*3/uL (0.20-1.00); Monocytes % (A) 9.4 %; NRBC Per 100 WBC 0 X 10*3/uL (0.00-0.01); Neutrophils # (A) 6.02 X 10*3/uL (1.80-7.70); Platelet Count 291 X 10*3/uL (140-440); RBC 4.54 X 10*6/uL (4.40-5.60); WBC 8.02 X 10*3/uL (4.50-10.00)
[2023-05-24] MEDS: SODIUM CHLORIDE 0.9% 1,000 ML IV SCH ×2 (09:00→21:31)
[2023-05-24 14:31] VITALS: BMI 18.8
--- NOTE | 2023-05-24 19:12 | P.PN ---
Subjective Progress Note Date: 05/24/23 H&P Date: 05/23/23 Chief Complaint: Generalized weakness, UTI This is a 57-year-old gentleman with past medical history significant for recently diagnosed GBM undergoing chemotherapy with Temodar, admitted with altered mental status, acute UTI and generalized weakness. Recently treated for UTI over 2 weeks ago, treated with Bactrim. Requires straight cathing at home per as per ER report. Afebrile, T-max 99.2, WBC 15.9, hemoglobin 16.4, platelets 423. Sodium 137, potassium 4.8, BUN 28, creatinine 0.7 glucose 142, lactic acid 1.8 magnesium 2.2. EKG reported sinus rhythm, troponin negative 1. UA report. Positive nitrates, large leukocyte esterase ,182 WBCs. Patient alert and oriented to self ,Denies any chest pain, palpitations or shortness of breath. Denies headache,blurred vision or seizure-like activity. Denies dizziness. Denies abdominal pain. Rocephin initiated in the ER. ER discussed with oncology, recommended holding cancer meds at this time. 05/24/2023 urine culture report Gram negative bacilli, maintained on ceftriaxone as per infectious disease. Afebrile, normal WBC. Renal function stable. Denies pain, slept well .Denies blurred vision, dizziness, headache or chills. Denies denies abdominal pain. Nystatin initiated for thrush. Murphy catheter placed for urinary retention. Objective - Vital Signs Vital signs: Vital Signs Temp 98.6 F 05/24/23 13:37 Pulse 73 05/24/23 13:37 Resp 16 05/24/23 13:37 BP 125/83 05/24/23 13:37 Pulse Ox 98 05/24/23 13:37 FiO2 Intake & Output 05/23/23 05/24/23 05/24/23 18:59 06:59 18:59 Intake Total 750 240 Output Total 2325 600 750 Balance -2325 150 -510 Weight 61.235 kg Intake: Intake, IV Titration 750 Amount cefTRIAXone 2 gm In 750 Sodium Chloride 0.9% 50 ml @ 100 mls/hr IVPB Q24H [facility] Rx#:[id number] Oral 240 Output: Urine 2325 600 750 Uretheral (Murphy) 1150 Other: Voiding Method Indwelling Catheter Indwelling Catheter - Exam PHYSICAL EXAM: VITAL SIGNS: [As above] GENERAL: 57-year-old gentleman sitting up in bed, alert and oriented 2, no acute distress HEENT: Normocephalic Conjunctivae normal. eyes normal. NECK: Supple, No JVD. No thyroid enlargement. No LNs CARDIOVASCULAR: S1, S2 regular.No murmur RESPIRATION: Unlabored ,Breath sounds diminished in the bases. ABDOMEN: Soft, nontender . No guarding. no masses palpable.+BS LEGS: No edema. no swelling NERVOUS SYSTEM: No gross focal deficits. Skin: Warm and dry, no rash - Labs CBC & Chem 7: 05/24/23 05:47 05/24/23 05:47 Labs: Abnormal Lab Results - Last 24 Hours (Table) 05/24/23 05/24/23 Range/Units 05:47 05:47 MPV 9.1 L (9.5-12.2) FL BUN/Creatinine Ratio 28.86 H (12.00-20.00) Ratio Microbiology - Last 24 Hours (Table) 05/22/23 14:39 Urine Culture - Final Urine,Clean Catch Escherichia coli 05/22/23 18:05 Blood Culture - Preliminary Blood 05/22/23 17:50 Blood Culture - Preliminary Blood Assessment and Plan Assessment: Altered mental status, metabolic encephalopathy, suspect related to his underlying glioblastoma multiform, and acute AVU-dvnz-vwjcosdb bacilli, possibly related to straight cath. required at home . Recently treated for acute UTI approximately 2 weeks ago. History of GBM, status post resection, currently on chemotherapy with Temodar. History of COVID-19 Oral candidasis. Urinary retention, Murphy catheter placed. Plan: Continue on current medication regime ,monitoring and symptomatic treatment. IV fluid hydration. Cultures finalazing, antibiotics as per ID. PT recommending subacute rehab. Discharge planning in progress. The impression and plan of care has been dictated as directed. : I performed a history and examination of this patient, discussed the same with the dictator. I agree with the dictator's note ,documented as a scribe. Any additional findings or plans will be noted.
[2023-05-24] MEDS: FINASTERIDE 5 MG TAB PO SCH (21:30)
--- NOTE | 2023-05-24 22:24 | P.PN ---
Subjective Progress Note Date: 05/24/23 Principal diagnosis: UTI Patient is a 57-year-old male with a past medical history significant for recent diagnosis of glioblastoma multiforme he undergoing chemotherapy patient was brought into the hospital for evaluation of generalized weakness and mental status changes with recently treated for UTI with the Bactrim patient did have urine retention requiring straight cath at home, patient did have a low- grade fever elevated white count positive UA concerning for a symptomatic urinary tract infection. On today's evaluation that is 05/24/2023 patient is more awake and alert the patient is breathing comfortably denies any chest pain shortness of breath or cough no abdominal pain or diarrhea. The patient white count normalized to 8.02, creatinine is 0.7 urine is growing gram-negative bacilli. Objective - Vital Signs Vital signs: Vital Signs Temp 98.8 F 05/24/23 07:23 Pulse 59 L 05/24/23 07:23 Resp 16 05/24/23 07:23 BP 126/79 05/24/23 07:23 Pulse Ox 98 05/24/23 07:23 FiO2 Intake & Output 05/23/23 05/24/23 05/24/23 18:59 06:59 18:59 Intake Total 750 Output Total 2325 600 Balance -2325 150 Intake: Intake, IV Titration 750 Amount cefTRIAXone 2 gm In 750 Sodium Chloride 0.9% 50 ml @ 100 mls/hr IVPB Q24H [facility] Rx#:[id number] Output: Urine 2325 600 Uretheral (Murphy) 1150 Other: Voiding Method Indwelling Catheter Indwelling Catheter - Exam GENERAL DESCRIPTION: Middle-age male lying in bed in no distress RESPIRATORY SYSTEM: Unlabored breathing , coarse breath sounds bilaterally HEART: S1 S2 regular rate and rhythm ,no loud murmurs ABDOMEN: Soft , no tenderness, EXTREMITIES: No edema feet - Labs CBC & Chem 7: 05/24/23 05:47 05/24/23 05:47 Labs: Abnormal Lab Results - Last 24 Hours (Table) 05/24/23 05/24/23 Range/Units 05:47 05:47 MPV 9.1 L (9.5-12.2) FL BUN/Creatinine Ratio 28.86 H (12.00-20.00) Ratio Microbiology - Last 24 Hours (Table) 05/22/23 18:05 Blood Culture - Preliminary Blood 05/22/23 17:50 Blood Culture - Preliminary Blood 05/22/23 14:39 Urine Culture - Preliminary Urine,Clean Catch Gram Neg Bacilli Assessment and Plan (1) UTI (urinary tract infection) Current Visit: Yes Status: Acute Code(s): N39.0 - URINARY TRACT INFECTION, SITE NOT SPECIFIED SNOMED Code(s): 55612711 Plan: 1patient presented to hospital with weakness mental status changes in this patient who did have a history of urinary outflow obstruction requiring self cath did have a positive UA concerning for symptomatic UTI failing outpatient Bactrim DS therapy. 2we will continue the patient on Rocephin 2 g daily while waiting for the culture to finalize and monitor clinical course closely Dictation was produced using [email or web address] dictation software. please excuse any grammatical, word or spelling errors.
[2023-05-25] MEDS: NYSTATIN 100,000 UNIT/ML SUSP 500,000 UNIT/5 ML CUP PO SCH ×4 (10:06→21:37)
[2023-05-25] MEDS: SODIUM CHLORIDE 0.9% 1,000 ML IV SCH (10:06)
[2023-05-25] MEDS: TAMSULOSIN 0.4 MG CAP.ER.24H PO SCH ×2 (10:06→21:37)
--- NOTE | 2023-05-25 13:58 | P.PN ---
Subjective Progress Note Date: 05/25/23 This is a 57-year-old gentleman with past medical history significant for recently diagnosed GBM undergoing chemotherapy with Temodar, admitted with altered mental status, acute UTI and generalized weakness. Recently treated for UTI over 2 weeks ago, treated with Bactrim. Requires straight cathing at home per as per ER report. Afebrile, T-max 99.2, WBC 15.9, hemoglobin 16.4, platelets 423. Sodium 137, potassium 4.8, BUN 28, creatinine 0.7 glucose 142, lactic acid 1.8 magnesium 2.2. EKG reported sinus rhythm, troponin negative 1. UA report. Positive nitrates, large leukocyte esterase ,182 WBCs. Patient alert and oriented to self ,Denies any chest pain, palpitations or shortness of breath. Denies headache,blurred vision or seizure-like activity. Denies dizziness. Denies abdominal pain. Rocephin initiated in the ER. ER discussed with oncology, recommended holding cancer meds at this time. 05/24/2023 urine culture report Gram negative bacilli, maintained on ceftriaxone as per infectious disease. Afebrile, normal WBC. Renal function stable. Denies pain, slept well .Denies blurred vision, dizziness, headache or chills. Denies denies abdominal pain. Nystatin initiated for thrush. Murphy catheter placed for urinary retention. 05/25/2023 Patient saw his oncology on Saturday and felt he was doing well, however due to the UTI they have stopped all his chemotherapy until his next f/u appt on Jun 20. He sees Dr Rodriguez. Patient is alert x 2 today with some slight confusion. Urine culture comes back with E. Coli he remains on IV ceftriaxone. Patient has IDC in place, per he was may not strait cathing as he should have been. He sees his urologist Dr Coyne In june of this year. Would recommend at this time to leave the IDC in place until follow up. Family is agreeing with [facility] and social work consult placed for DC planning. Review of Systems Constitutional: Denied any fatigue denied any fever. Cardio vascular: denied any chest pain, palpitations Gastrointestinal: denied any nausea, vomiting, diarrhea Pulmonary: Denied any shortness of breath cough Neurologic denied any new focal deficits All inpatient medications were reviewed and appropriate changes in these medications as dictated in the interval history and assessment and plan. PHYSICAL EXAMINATION: GENERAL: 57-year-old gentleman sitting up in bed, alert and oriented 2, no acute distress HEENT: Normocephalic Conjunctivae normal. eyes normal. NECK: Supple, No JVD. No thyroid enlargement. No LNs CARDIOVASCULAR: S1, S2 regular.No murmur RESPIRATION: Unlabored ,Breath sounds diminished in the bases. ABDOMEN: Soft, nontender . No guarding. no masses palpable.+BS LEGS: No edema. no swelling NERVOUS SYSTEM: No gross focal deficits. Skin: Warm and dry, no rash Assessment Altered mental status, metabolic encephalopathy, suspect related to his underlying glioblastoma multiform, and acute UTI Acute urinary tract infection likely due to straight cathing at home. Recently treated for acute UTI approximately 2 weeks ago. History of GBM, status post resection, currently on chemotherapy with Temodar. Chemotherapy is being held per his oncologist. History of COVID-19 Oral candidasis. Urinary retention, Murphy catheter placed. GI prophylaxis DVT prophylaxis DO NOT RESUSCITATE/DO NOT INTUBATE Plan Plan: Continue on current medication regime ,monitoring and symptomatic treatment. IV fluid hydration. Culture has finalized pending ID recommendations. As above family has decided on subacute rehab and social work consult in place for DC planning. Medically he is stable for DC. The impression and plan of care has been dictated by Hailey Negro, Nurse Practitioner as directed. Dr. Sumi MD I have performed a history and physical examination and medical decision making of this patient, discussed the same with the dictator, and agree with the dictators assessment and plan as written, documented as a scribe. Based on total visit time, I have performed more than 50% of this visit. Objective - Vital Signs Vital signs: Vital Signs Temp 97.8 F 05/25/23 07:18 Pulse 55 L 05/25/23 07:18 Resp 16 05/25/23 07:18 BP 119/74 05/25/23 07:18 Pulse Ox 100 05/25/23 07:18 FiO2 Intake & Output 05/24/23 05/25/23 05/25/23 18:59 06:59 18:59 Intake Total 240 100 240 Output Total 750 800 Balance -510 -700 240 Weight 61.235 kg Intake: Oral 240 100 240 Output: Urine 750 800 Other: Voiding Method Indwelling Catheter Indwelling Catheter Indwelling Catheter - Labs CBC & Chem 7: 05/24/23 05:47 05/24/23 05:47 Labs: Microbiology - Last 24 Hours (Table) 05/22/23 18:05 Blood Culture - Preliminary Blood 05/22/23 17:50 Blood Culture - Preliminary Blood 05/22/23 14:39 Urine Culture - Final Urine,Clean Catch Escherichia coli Assessment and Plan Time with Patient: Less than 30
[2023-05-25] MEDS: FINASTERIDE 5 MG TAB PO SCH (21:37)
[2023-05-25] MEDS: HEPARIN SODIUM,PORCINE 5,000 UNIT/ML 1 ML VIAL SQ SCH (21:38)
--- NOTE | 2023-05-26 00:10 | P.PN ---
Subjective Progress Note Date: 05/25/23 Principal diagnosis: UTI Patient is a 57-year-old male with a past medical history significant for recent diagnosis of glioblastoma multiforme he undergoing chemotherapy patient was brought into the hospital for evaluation of generalized weakness and mental status changes with recently treated for UTI with the Bactrim patient did have urine retention requiring straight cath at home, patient did have a low- grade fever elevated white count positive UA concerning for a symptomatic urinary tract infection. On today's evaluation that is 05/25/2023 patient is afebrile , the patient is breathing comfortably on room air , Pt denies any chest pain shortness of breath or cough no abdominal pain or diarrhea. The patient white count normalized to 8.02, creatinine is 0.7 as of yesterday , no labs today , urine is growing gram-negative bacilli. Objective - Vital Signs Vital signs: Vital Signs Temp 98.3 F 05/25/23 19:30 Pulse 62 05/25/23 19:30 Resp 18 05/25/23 19:30 BP 117/78 05/25/23 19:30 Pulse Ox 98 05/25/23 19:30 FiO2 Intake & Output 05/25/23 05/25/23 05/26/23 06:59 18:59 05:59 Intake Total 100 1260 Output Total 800 500 Balance -700 760 Intake: Intake, IV Titration 900 Amount Sodium Chloride 0.9% 1, 900 000 ml @ 75 mls/hr IV . [id number] [facility] Rx#:[id number] Oral 100 360 Output: Urine 800 500 Other: Voiding Method Indwelling Catheter Indwelling Catheter - Exam GENERAL DESCRIPTION: Middle-age male lying in bed in no distress RESPIRATORY SYSTEM: Unlabored breathing , coarse breath sounds bilaterally HEART: S1 S2 regular rate and rhythm ,no loud murmurs ABDOMEN: Soft , no tenderness, EXTREMITIES: No edema feet - Labs CBC & Chem 7: 05/24/23 05:47 05/24/23 05:47 Labs: Microbiology - Last 24 Hours (Table) 05/22/23 18:05 Blood Culture - Preliminary Blood 05/22/23 17:50 Blood Culture - Preliminary Blood Assessment and Plan (1) UTI (urinary tract infection) Current Visit: Yes Status: Acute Code(s): N39.0 - URINARY TRACT INFECTION, SITE NOT SPECIFIED SNOMED Code(s): 98221667 Plan: 1patient presented to hospital with weakness mental status changes in this patient who did have a history of urinary outflow obstruction requiring self cath did have a positive UA concerning for symptomatic UTI failing outpatient Bactrim DS therapy. 2Pt has shown clinical improvment , we will continue the patient on Rocephin 2 g daily while waiting for the culture to finalize to determine dc antibiotics Dictation was produced using [employer] dictation software. please excuse any grammatical, word or spelling errors. Time with Patient: Less than 30
[2023-05-26] MEDS: SODIUM CHLORIDE 0.9% 1,000 ML IV SCH ×2 (01:20→16:50)
[2023-05-26] MEDS: PANTOPRAZOLE 40 MG TABLET PO SCH (07:47)
[2023-05-26] MEDS: HEPARIN SODIUM,PORCINE 5,000 UNIT/ML 1 ML VIAL SQ SCH ×2 (07:47→20:35)
[2023-05-26] MEDS: NYSTATIN 100,000 UNIT/ML SUSP 500,000 UNIT/5 ML CUP PO SCH ×4 (07:47→20:35)
[2023-05-26] MEDS: TAMSULOSIN 0.4 MG CAP.ER.24H PO SCH ×2 (07:47→20:35)
--- NOTE | 2023-05-26 14:31 | P.PN ---
Subjective Progress Note Date: 05/26/23 Principal diagnosis: UTI Patient is a 57-year-old male with a past medical history significant for recent diagnosis of glioblastoma multiforme he undergoing chemotherapy patient was brought into the hospital for evaluation of generalized weakness and mental status changes with recently treated for UTI with the Bactrim patient did have urine retention requiring straight cath at home, patient did have a low- grade fever elevated white count positive UA concerning for a symptomatic urinary tract infection. On today's evaluation that is 05/26/2023, the patient denies any fever or any chills, the patient is breathing comfortably on room air and no need for supplemental oxygen, the patient denies any chest pain and no cough or sputum production, patient denies Abdominal pain and no nausea/vomiting or diarrhea The patient white count normalized to 8.02, creatinine is 0.7 as of 05/24/2023 , no labs today , urine is growing E. coli that is sensitive to ceftriaxone Objective - Vital Signs Vital signs: Vital Signs Temp 98.5 F 05/26/23 12:46 Pulse 56 L 05/26/23 12:46 Resp 16 05/26/23 12:46 BP 125/77 05/26/23 12:46 Pulse Ox 98 05/26/23 12:46 FiO2 Intake & Output 05/25/23 05/26/23 05/26/23 19:59 06:59 18:59 Intake Total Output Total Balance Intake: Intake, IV Titration Amount Sodium Chloride 0.9% 1, 000 ml @ 75 mls/hr IV . [id number] [facility] Rx#:[id number] Oral Output: Urine Other: Voiding Method Indwelling Catheter - Exam GENERAL DESCRIPTION: Middle-age male lying in bed in no distress RESPIRATORY SYSTEM: Unlabored breathing , coarse breath sounds bilaterally HEART: S1 S2 regular rate and rhythm ,no loud murmurs ABDOMEN: Soft , no tenderness, EXTREMITIES: No edema feet - Labs CBC & Chem 7: 05/24/23 05:47 05/24/23 05:47 Labs: Microbiology - Last 24 Hours (Table) 05/22/23 18:05 Blood Culture - Preliminary Blood 05/22/23 17:50 Blood Culture - Preliminary Blood Assessment and Plan (1) UTI (urinary tract infection) Current Visit: Yes Status: Acute Code(s): N39.0 - URINARY TRACT INFECTION, SITE NOT SPECIFIED SNOMED Code(s): 71056469 Plan: 1patient presented to hospital with weakness mental status changes in this patient who did have a history of urinary outflow obstruction requiring self cath did have a positive UA concerning for symptomatic UTI failing outpatient Bactrim DS therapy. 2patient has shown clinical improvement and the patient urine has been finalized with E. coli that is sensitive to ceftriaxone 3-we will continue the patient on Rocephin 2 g daily and plan to finish therapy with oral Ceftin Dictation was produced using [employer] dictation software. please excuse any grammatical, word or spelling errors. Time with Patient: Less than 30
--- NOTE | 2023-05-26 16:00 | P.PN ---
Subjective Progress Note Date: 05/26/23 This is a 57-year-old gentleman with past medical history significant for recently diagnosed GBM undergoing chemotherapy with Temodar, admitted with altered mental status, acute UTI and generalized weakness. Recently treated for UTI over 2 weeks ago, treated with Bactrim. Requires straight cathing at home per as per ER report. Afebrile, T-max 99.2, WBC 15.9, hemoglobin 16.4, platelets 423. Sodium 137, potassium 4.8, BUN 28, creatinine 0.7 glucose 142, lactic acid 1.8 magnesium 2.2. EKG reported sinus rhythm, troponin negative 1. UA report. Positive nitrates, large leukocyte esterase ,182 WBCs. Patient alert and oriented to self ,Denies any chest pain, palpitations or shortness of breath. Denies headache,blurred vision or seizure-like activity. Denies dizziness. Denies abdominal pain. Rocephin initiated in the ER. ER discussed with oncology, recommended holding cancer meds at this time. 05/24/2023 urine culture report Gram negative bacilli, maintained on ceftriaxone as per infectious disease. Afebrile, normal WBC. Renal function stable. Denies pain, slept well .Denies blurred vision, dizziness, headache or chills. Denies denies abdominal pain. Nystatin initiated for thrush. Murphy catheter placed for urinary retention. 05/25/2023 Patient saw his oncology on Saturday and felt he was doing well, however due to the UTI they have stopped all his chemotherapy until his next f/u appt on Jun 20. He sees Dr Rodriguez. Patient is alert x 2 today with some slight confusion. Urine culture comes back with E. Coli he remains on IV ceftriaxone. Patient has IDC in place, per he was may not strait cathing as he should have been. He sees his urologist Dr Coyne In june of this year. Would recommend at this time to leave the IDC in place until follow up. Family is agreeing with [facility] and social work consult placed for DC planning. 05/26/2023 Patient evaluated today resting in bed discussed discharge planning with his over the phone and agreeing to subacute rehab on discharge. No acute complaints. IDC remains in place. Hemodynamically he is stable. Review of Systems Constitutional: Denied any fatigue denied any fever. Cardio vascular: denied any chest pain, palpitations Gastrointestinal: denied any nausea, vomiting, diarrhea Pulmonary: Denied any shortness of breath cough Neurologic denied any new focal deficits All inpatient medications were reviewed and appropriate changes in these medications as dictated in the interval history and assessment and plan. PHYSICAL EXAMINATION: GENERAL: 57-year-old gentleman sitting up in bed, alert and oriented 2, no acute distress HEENT: Normocephalic Conjunctivae normal. eyes normal. NECK: Supple, No JVD. No thyroid enlargement. No LNs CARDIOVASCULAR: S1, S2 regular.No murmur RESPIRATION: Unlabored ,Breath sounds diminished in the bases. ABDOMEN: Soft, nontender . No guarding. no masses palpable.+BS LEGS: No edema. no swelling NERVOUS SYSTEM: No gross focal deficits. Skin: Warm and dry, no rash Assessment Altered mental status, metabolic encephalopathy, suspect related to his underlying glioblastoma multiform, and acute UTI Acute urinary tract infection likely due to straight cathing at home. Recently treated for acute UTI approximately 2 weeks ago. History of GBM, status post resection, currently on chemotherapy with Temodar. Chemotherapy is being held per his oncologist. History of COVID-19 Oral candidasis. Urinary retention, Murphy catheter placed. GI prophylaxis DVT prophylaxis DO NOT RESUSCITATE/DO NOT INTUBATE Plan Plan: Continue on current medication regime ,monitoring and symptomatic treatment. IV fluid hydration. Culture has finalized, ID recommending oral ceftin on discharge. As above family has decided on subacute rehab and social work consult in place for DC planning. Medically he is stable for DC. The impression and plan of care has been dictated by Hailey Negro, Nurse Practitioner as directed. Dr. Sumi MD I have performed a history and physical examination and medical decision making of this patient, discussed the same with the dictator, and agree with the dictators assessment and plan as written, documented as a scribe. Based on total visit time, I have performed more than 50% of this visit. Objective - Vital Signs Vital signs: Vital Signs Temp 98.5 F 05/26/23 12:46 Pulse 56 L 05/26/23 12:46 Resp 16 05/26/23 12:46 BP 125/77 05/26/23 12:46 Pulse Ox 98 05/26/23 12:46 FiO2 Intake & Output 05/25/23 05/26/23 05/26/23 19:59 06:59 18:59 Intake Total Output Total Balance Intake: Intake, IV Titration Amount Sodium Chloride 0.9% 1, 000 ml @ 75 mls/hr IV . [id number] Rx#:[id number] Oral Output: Urine Other: Voiding Method Indwelling Catheter - Labs CBC & Chem 7: 05/24/23 05:47 05/24/23 05:47 Labs: Microbiology - Last 24 Hours (Table) 05/22/23 18:05 Blood Culture - Preliminary Blood 05/22/23 17:50 Blood Culture - Preliminary Blood Assessment and Plan Time with Patient: Less than 30
[2023-05-26] MEDS: FINASTERIDE 5 MG TAB PO SCH (20:35)
[2023-05-27] MEDS: SODIUM CHLORIDE 0.9% 1,000 ML IV SCH ×2 (02:18→18:28)
[2023-05-27] MEDS: TAMSULOSIN 0.4 MG CAP.ER.24H PO SCH ×2 (07:50→20:52)
[2023-05-27] MEDS: PANTOPRAZOLE 40 MG TABLET PO SCH (07:50)
[2023-05-27] MEDS: NYSTATIN 100,000 UNIT/ML SUSP 500,000 UNIT/5 ML CUP PO SCH ×4 (07:50→20:52)
[2023-05-27] MEDS: HEPARIN SODIUM,PORCINE 5,000 UNIT/ML 1 ML VIAL SQ SCH ×2 (07:54→20:52)
--- NOTE | 2023-05-27 10:30 | P.DS ---
Providers Date of admission: 05/22/23 18:43 Expected date of discharge: 05/27/23 Attending physician: Ishmael Simpson MD Consults: 05/22/23 17:42 Consult Physician Urgent Consulting Provider: Caridad He Consult Reason/Comments: UTI hx outpatient failure. culture pending Do you want consulting provider notified?: Yes Primary care physician: Mary Saleh Hospital Course: Final Diagnoses: Altered mental status, metabolic encephalopathy, suspect related to his underlying glioblastoma multiform, and acute symptomatic UTI-E. coli, possibly related to history of urinary outflow obstruction -straight cath. required at home. Recently treated for acute UTI approximately 2 weeks ago. Failed outpatient treatment with Bactrim. History of GBM, status post resection, currently on chemotherapy with Temodar. History of COVID-19 Oral candidasis. Urinary retention, Murphy catheter placed. Hospital course:This is a 57-year-old gentleman with past medical history significant for recently diagnosed GBM undergoing chemotherapy with Temodar, admitted with altered mental status, acute UTI and generalized weakness. Recently treated for UTI over 2 weeks ago, treated with Bactrim. Requires straight cathing at home per as per ER report. Afebrile, T-max 99.2, WBC 15.9, hemoglobin 16.4, platelets 423. Sodium 137, potassium 4.8, BUN 28, creatinine 0.7 glucose 142, lactic acid 1.8 magnesium 2.2. EKG reported sinus rhythm, troponin negative 1. UA report. Positive nitrates, large leukocyte esterase ,182 WBCs. Patient alert and oriented to self ,Denies any chest pain, palpitations or shortness of breath. Denies headache,blurred vision or seizure- like activity. Denies dizziness. Denies abdominal pain. Rocephin initiated in the ER. ER discussed with oncology, recommended holding cancer meds at this time. 05/24/2023 urine culture report Gram negative bacilli, maintained on ceftriaxone as per infectious disease. Afebrile, normal WBC. Renal function stable. Denies pain, slept well .Denies blurred vision, dizziness, headache or chills. Denies denies abdominal pain. Nystatin initiated for thrush. Murphy catheter placed for urinary retention. Urine culture reporting E. coli, sensitive to ceftriaxone. Afebrile. Denies nausea vomiting or diarrhea. Denies abdominal pain. Denies headache. Denies fevers or chills. Maintained on IV antibiotics of ceftriaxone. Significant clinical improvement. Cleared by infectious disease to be discharged on Ceftin 500 mg twice a day 7 days. Patient will be discharged to subacute rehab. today in a stable condition with guarded prognosis. The impression and plan of care has been dictated as directed. : I performed a history and examination of this patient, discussed the same with the dictator. I agree with the dictator's note ,documented as a scribe. Any additional findings or plans will be noted. Patient Condition at Discharge: Stable Plan - Discharge Summary Discharge Rx Participant: No New Discharge Prescriptions: New Pantoprazole [Protonix] 40 mg PO AC-BRKFST tab Nystatin 100,000 Unit/ml Susp [Mycostatin Oral Susp] 500,000 unit PO QID ml Acetaminophen Tab [Tylenol] 650 mg PO Q6HR PRN tab PRN Reason: Mild Pain Or Fever > 100.5 cefUROXime axetiL [Ceftin] 500 mg PO BID 7 Days #14 tab Continue Finasteride [Proscar] 5 mg PO HS Ondansetron [Zofran] 4 - 8 mg PO Q8H PRN PRN Reason: Nausea And Vomiting Temozolomide [Temodar] 250 mg PO DIRECTED Albuterol Inhaler [Ventolin Hfa Inhaler] 1 - 2 puff INHALATION RT-Q6H PRN PRN Reason: Shortness Of Breath Mvasi (Bevacizumab-Awwb) 1 dose IV Q21D Tamsulosin HCl [Flomax] 0.4 mg PO BID Discharge Medication List Tamsulosin HCl [Flomax] 0.4 mg PO BID 01/30/22 [History] Finasteride [Proscar] 5 mg PO HS 12/26/22 [History] Ondansetron [Zofran] 4 - 8 mg PO Q8H PRN 12/26/22 [History] Temozolomide [Temodar] 250 mg PO DIRECTED 12/26/22 [History] Albuterol Inhaler [Ventolin Hfa Inhaler] 1 - 2 puff INHALATION RT-Q6H PRN 05/22/23 [History] Mvasi (Bevacizumab-Awwb) 1 dose IV Q21D 05/22/23 [History] Acetaminophen Tab [Tylenol] 650 mg PO Q6HR PRN tab 05/27/23 [Rx] Nystatin 100,000 Unit/ml Susp [Mycostatin Oral Susp] 500,000 unit PO QID ml 05/27/23 [Rx] Pantoprazole [Protonix] 40 mg PO AC-BRKFST tab 05/27/23 [Rx] cefUROXime axetiL [Ceftin] 500 mg PO BID 7 Days #14 tab 05/27/23 [Rx] Follow up Appointment(s)/Referral(s): Zainab Rodriguez DO [REFERRING] - 06/20/23 Mary Saleh DO [Primary Care Provider] - 1-2 days Johan Coyne DO [REFERRING] - 2 Weeks Activity/Diet/Wound Care/Special Instructions: [facility]: Antibiotics as per ID CBC,BMP in 3 days Discharge Disposition: TRANSFER TO SNF/ECF
--- NOTE | 2023-05-27 11:54 | P.PN ---
Subjective Progress Note Date: 05/27/23 Principal diagnosis: UTI Patient is a 57-year-old male with a past medical history significant for recent diagnosis of glioblastoma multiforme he undergoing chemotherapy patient was brought into the hospital for evaluation of generalized weakness and mental status changes with recently treated for UTI with the Bactrim patient did have urine retention requiring straight cath at home, patient did have a low- grade fever elevated white count positive UA concerning for a symptomatic urinary tract infection. On today's evaluation that is 05/27/2023, the patient remains to be afebrile, the patient is breathing comfortably on room air , the patient denies any chest pain or cough and no sputum production, patient denies nausea/vomiting or diarrhea , no abdominal pain The patient white count normalized to 8.02, creatinine is 0.7 as of 05/24/2023 , no labs today , urine is growing E. coli that is sensitive to ceftriaxone Objective - Vital Signs Vital signs: Vital Signs Temp 98.3 F 05/27/23 07:12 Pulse 55 L 05/27/23 07:12 Resp 16 05/27/23 07:12 BP 157/89 05/27/23 07:12 Pulse Ox 98 05/27/23 07:12 FiO2 Intake & Output 05/26/23 05/27/23 05/27/23 18:59 06:59 18:59 Intake Total 590 Output Total 675 1800 Balance -675 -1210 Intake: Oral 590 Output: Urine 675 1800 Other: Voiding Method Indwelling Catheter Indwelling Catheter Indwelling Catheter - Exam GENERAL DESCRIPTION: Middle-age male lying in bed in no distress RESPIRATORY SYSTEM: Unlabored breathing , coarse breath sounds bilaterally HEART: S1 S2 regular rate and rhythm ,no loud murmurs ABDOMEN: Soft , no tenderness, EXTREMITIES: No edema feet - Labs CBC & Chem 7: 05/24/23 05:47 05/24/23 05:47 Labs: Microbiology - Last 24 Hours (Table) 05/22/23 18:05 Blood Culture - Preliminary Blood 05/22/23 17:50 Blood Culture - Preliminary Blood Assessment and Plan (1) UTI (urinary tract infection) Current Visit: Yes Status: Acute Code(s): N39.0 - URINARY TRACT INFECTION, SITE NOT SPECIFIED SNOMED Code(s): 14568632 Plan: 1patient presented to hospital with weakness mental status changes in this patient who did have a history of urinary outflow obstruction requiring self ca th did have a positive UA concerning for symptomatic UTI failing outpatient Bactrim DS therapy. 2patient has shown clinical improvement and the patient urine has been finalized with E. coli that is sensitive to ceftriaxone 3-patient has shown clinical improvement with Rocephin 2 g daily and plan to finish therapy with oral Ceftin 7 days on discharge discussed with the [employer]AP[employer] CUTTER MACHINE for admitting team Dictation was produced using [employer] dictation software. please excuse any grammatical, word or spelling errors. Time with Patient: Less than 30
[2023-05-27] MEDS: ONDANSETRON 4 MG/2 ML VIAL IVP PRN (16:39)
[2023-05-27] MEDS ORDERED: ZINC OXIDE PASTE (Z-GUARD) 1 APPLIC APPLIC TOPICAL PRN (19:59)
[2023-05-27] MEDS: FINASTERIDE 5 MG TAB PO SCH (20:51)
[2023-05-28] MEDS: SODIUM CHLORIDE 0.9% 1,000 ML IV SCH (04:30)
[2023-05-28 08:11] VITALS: BP 145/92; PULSE 58; RESP 17; TEMP 97.8
[2023-05-28] MEDS: HEPARIN SODIUM,PORCINE 5,000 UNIT/ML 1 ML VIAL SQ SCH (08:53)
[2023-05-28] MEDS: PANTOPRAZOLE 40 MG TABLET PO SCH (08:53)
[2023-05-28] MEDS: TAMSULOSIN 0.4 MG CAP.ER.24H PO SCH (08:53)
[2023-05-28] MEDS: NYSTATIN 100,000 UNIT/ML SUSP 500,000 UNIT/5 ML CUP PO SCH ×2 (08:53→13:12)
[2023-05-28] MEDS: ONDANSETRON 4 MG/2 ML VIAL IVP PRN (12:06)
--- NOTE | 2023-05-28 12:17 | P.PN ---
Subjective Progress Note Date: 05/28/23 Principal diagnosis: UTI Patient is a 57-year-old male with a past medical history significant for recent diagnosis of glioblastoma multiforme he undergoing chemotherapy patient was brought into the hospital for evaluation of generalized weakness and mental status changes with recently treated for UTI with the Bactrim patient did have urine retention requiring straight cath at home, patient did have a low- grade fever elevated white count positive UA concerning for a symptomatic urinary tract infection. On today's evaluation that is 05/28/2023, the patient continues to be afebrile, the patient is breathing comfortably on room air , the patient is sleepy lethargic today and did not answer any question no vomiting no diarrhea or any other changes reported by the nursing staff The patient white count normalized to 8.02, creatinine is 0.7 as of 05/24/2023 , no labs drawn today , urine is growing E. coli that is sensitive to ceftriaxone Objective - Vital Signs Vital signs: Vital Signs Temp 97.8 F 05/28/23 08:00 Pulse 58 L 05/28/23 08:00 Resp 17 05/28/23 08:00 BP 145/92 05/28/23 08:00 Pulse Ox 98 05/28/23 08:00 FiO2 Intake & Output 05/27/23 05/28/23 05/28/23 18:59 06:59 18:59 Intake Total 320 300 Output Total 1050 2400 Balance -1050 -2080 300 Intake: Intake, IV Titration 300 Amount Sodium Chloride 0.9% 1, 300 000 ml @ 75 mls/hr IV . [id number] [facility] Rx#:[id number] Oral 320 Output: Urine 1050 2400 Other: Voiding Method Indwelling Catheter Indwelling Catheter Indwelling Catheter # Bowel Movements 1 - Exam GENERAL DESCRIPTION: Middle-age male lying in bed in no distress RESPIRATORY SYSTEM: Unlabored breathing , coarse breath sounds bilaterally HEART: S1 S2 regular rate and rhythm ,no loud murmurs ABDOMEN: Soft , no tenderness, EXTREMITIES: No edema feet - Labs CBC & Chem 7: 05/24/23 05:47 05/24/23 05:47 Labs: Microbiology - Last 24 Hours (Table) 05/22/23 18:05 Blood Culture - Final Blood 05/22/23 17:50 Blood Culture - Final Blood Assessment and Plan (1) UTI (urinary tract infection) Current Visit: Yes Status: Acute Code(s): N39.0 - URINARY TRACT INFECTION, SITE NOT SPECIFIED SNOMED Code(s): 13956777 Plan: 1patient presented to hospital with weakness mental status changes in this patient who did have a history of urinary outflow obstruction requiring self cath did have a positive UA concerning for symptomatic UTI failing outpatient Bactrim DS therapy. 2patient urine has been finalized with E. coli that is sensitive to ceftriaxone , which will be continued while the patient and monitor clinical course closely Dictation was produced using [employer] dictation software. please excuse any grammatical, word or spelling errors. Time with Patient: Less than 30
== END 2023-05-28 15:29 | DRG 698 ==
LOC: SUPCPDRO 10:25 → EC 10:25 → 5NMEDONC 18:43
PROVIDERS: ADMIT Family Medicine; ATTEND Family Medicine
DX: T83.518A Infection and inflammatory reaction due to other urinary catheter, initial encounter (principal); G93.41 Metabolic encephalopathy; N39.0 Urinary tract infection, site not specified; C71.9 Malignant neoplasm of brain, unspecified; B96.20 Unspecified Escherichia coli [E. coli] as the cause of diseases classified elsewhere; B37.9 Candidiasis, unspecified; Z66 Do not resuscitate; Z79.899 Other long term (current) drug therapy; Z86.16 Personal history of COVID-19; Z87.440 Personal history of urinary (tract) infections; Z92.21 Personal history of antineoplastic chemotherapy
CPT/HCPCS: 36415; 80048; 80053; 81001; 83605; 83735; 84484; 85025; 85610; 85730; 87040; 87077; 87086; 87186; 93005; 96365; 99285

== ENCOUNTER 2023-06-07 13:08 | Inpatient (IN) | payer BC ==
[2023-06-07] MEDS ORDERED: ONDANSETRON 4 MG/2 ML VIAL IVP STA (13:45)
[2023-06-07] MEDS ORDERED: SODIUM CHLORIDE 0.9% 1,000 ML IV STA (13:45)
[2023-06-07 14:44] LABS: HCT 44.1 % (39.0-53.0); HGB 14.4 gm/dL (13.0-17.5); MCH 29.9 pg (25.0-35.0); MCHC 32.7 g/dL (31.0-37.0); MCV 91.7 fL (80.0-100.0); Mean Platelet Volume 7.3; Platelet Count 417 k/uL (150-450); RBC 4.81 m/uL (4.30-5.90); RDW 13.7 % (11.5-15.5); WBC 9.7 k/uL (3.8-10.6)
[2023-06-07 15:12] LABS: ALT 15 U/L (4-49); AST 18 U/L (17-59); African American GFR (CKD) >90 (>60 ml/min/1.73 sqM); Albumin 3.6 g/dL (3.5-5.0); Alkaline Phosphatase 75 U/L (38-126); Anion Gap 10 mmol/L; Blood Urea Nitrogen 28 mg/dL (9-20); Calcium 9.4 mg/dL (8.4-10.2); Carbon Dioxide 26 mmol/L (22-30); Chloride 100 mmol/L (98-107); Glucose 102 mg/dL (74-99); Lipase 92 U/L (23-300); Non-African American GFR(CKD) >90 (>60 ml/min/1.73 sqM); Potassium 4.4 mmol/L (3.5-5.1); Sodium 136 mmol/L (137-145); Total Bilirubin 0.5 mg/dL (0.2-1.3); Total Protein 6.1 g/dL (6.3-8.2)
[2023-06-07 16:11] LABS: Appearance,Urine Cloudy (Clear); Bacteria,Urine Rare /hpf; Bilirubin,Urine Negative (Negative); Blood,Urine Negative (Negative); Color,Urine Yellow; Glucose,Urine (UA) Negative (Negative); Ketones,Urine Negative (Negative); Leukocyte Esterase,Urine Moderate (Negative); Mucus,Urine Few /hpf; Nitrite,Urine Negative (Negative); Protein,Urine Trace (Negative); RBC,Urine 5 /hpf (0-5); Specific Gravity,Urine 1.021 (1.001-1.035); Urobilinogen,Urine <2.0 mg/dL (<2.0); WBC,Urine 38 /hpf (0-5)
--- NOTE | 2023-06-07 16:46 | CT ---
EXAMINATION TYPE: CT abdomen pelvis w con DATE OF EXAM: 06/07/2023 COMPARISON: NONE HISTORY: 49-year-old male with pain, N/V. Hx of brain CA w/mets. TECHNIQUE: Contiguous axial scanning of the abdomen and pelvis following administration of 100 ml Iso annamarie 300 IV contrast. Delayed images through the kidneys and coronal/sagittal reconstructions perform ed. CT DLP: 654.6 mGycm Automated exposure control for dose reduction was used. FINDINGS: Heart normal size without pericardial effusion. There is some focal 2.3 cm subpleural opaci ty in the posterior right base. No pleural effusion. There is a 6.6 cm hypodense lesion left liver lobe that shows peripheral puddled enhancement. Enlarge s on delayed kidney scan but there is incomplete filling. Approximately 3 hypodense hepatic lesions are present varying in size from 6 mm up to 1.6 cm. Portal venous system is patent. No biliary ductal dilatation. Gallbladder not seen. Adrenal glands, kidneys, spleen, and pancreas show no gross abnormal body. Scattered prominent fluid-filled small bowel loops throughout the abdomen. No dilated small bowel, fr ee fluid, or free air. There is scattered mild to moderate stool throughout the colon. Extensive sigmoid diverticulosis. Pos sibility of intra-abdominal fat limits the evaluation. No obvious inflammation is seen or obvious abd ominal or pelvic lymphadenopathy. A Henderson catheter is present. There is mild circumferential bladder wall thickening. Prominent nondepe ndent intraluminal bladder air. Prostate gland borderline at 4.8 cm. Moderate stool within the rectum . Numerous pelvic phleboliths. Bones: No osseous destructive process. IMPRESSION: 1. THERE IS A 6.6 CM MASS OF THE LEFT LIVER LOBE THAT SHOWS PERIPHERAL ENHANCEMENT. THE PERIPHERAL EN HANCEMENT ENLARGES ON DELAYED KIDNEY IMAGES. A HEPATIC HEMANGIOMA IS FAVORED. RECOMMEND CONFIRMATION WITH LIVER MRI. 2. A FEW ADDITIONAL NONSPECIFIC HEPATIC LESIONS MEASURING UP TO 1.6 CM. THESE ARE TOO SMALL FOR ACCUR ATE CT CHARACTERIZATION AND CAN ALSO BE FURTHER ASSESSED ON THE MRI. POSSIBLE TINY CYSTS. 3. SCATTERED PROMINENT FLUID-FILLED SMALL BOWEL LOOPS THROUGHOUT THE ABDOMEN MAY BE TRANSIENT OR REPR ESENT A MILD ILEUS/ENTERITIS. 4. MILD CIRCUMFERENCE OF BLADDER WALL THICKENING. CORRELATE TO EXCLUDE CYSTITIS. HENDERSON CATHETER IS IN PLACE WITH PROMINENT AIR IN THE BLADDER LUMEN LIKELY RELATING TO THE INSTRUMENTATION. 5. EXTENSIVE SIGMOID DIVERTICULOSIS.
--- NOTE | 2023-06-07 18:05 | ED ---
General Adult HPI - General Source: patient, family, RN notes reviewed Mode of arrival: EMS Limitations: no limitations <Padmini Aldana - Last Filed: 06/07/23 20:25> <Jessee Saleh - Last Filed: 06/07/23 22:57> - General Chief complaint: Nausea/Vomiting/Diarrhea Stated complaint: vomiting Time Seen by Provider: 06/07/23 13:14 - History of Present Illness Initial comments: Patient is a 57-year-old male presenting to the ER via EMS with a chief complaint of nausea and vomiting. is providing most of the HPI. Patient is a resident at a nursing facility and per she states that he has been constipated for the past couple of days. The facility decided to get an ultrasound for the constipation. The ultrasound found multiple lesions throughout his abdomen and they sent him to the ER for further evaluation. states that he has a past medical history for GBM which was removed in January 2022 and he had a PET scan about 16 months ago which was clean. Patient sees Dr. Castillo and Dr. Rodriguez from oncology. Patient is complaining of mild epigastric pain and calf pain on exam. (Padmini Aldana) - Related Data Home Medications Medication Instructions Recorded Confirmed Tamsulosin HCl [Flomax] 0.4 mg PO BID 01/30/22 06/07/23 Ondansetron [Zofran] 4 mg PO Q8H PRN 12/26/22 06/07/23 Acetaminophen [Tylenol 8 Hour] 650 mg PO Q6H PRN 06/07/23 06/07/23 Albuterol Sulfate [Albuterol 2 puff PO RT-Q6H PRN 06/07/23 06/07/23 Sulfate Hfa] Mag Hydrox/Aluminum Hyd/Simeth 30 ml PO Q4H PRN 06/07/23 06/07/23 [Mylanta Maximum Strength Liq] Magnesium Hydroxide [Milk of 2,400 mg PO Q72H PRN 06/07/23 06/07/23 Magnesia] Omeprazole [PriLOSEC] 20 mg PO DAILY 06/07/23 06/07/23 Allergies Allergy/AdvReac Type Severity Reaction Status Date / Time No Known Allergies Allergy Verified 06/07/23 15:56 Review of Systems ROS Other: All systems not noted in ROS Statement are negative. <Padmini Aldana - Last Filed: 06/07/23 20:25> ROS Other: All systems not noted in ROS Statement are negative. <Jessee Saleh - Last Filed: 06/07/23 22:57> ROS Statement: Those systems with pertinent positive or pertinent negative responses have been documented in the HPI. Past Medical History Past Medical History: Cancer, Chest Pain / Angina Additional Past Medical History / Comment(s): GBM 02/02/2022, metabolic encephalopathy, muscle weakness, UTI, malignant neoplasm of brain with mets. History of Any Multi-Drug Resistant Organisms: None Reported Past Surgical History: No Surgical Hx Reported Additional Past Surgical History / Comment(s): crainiotomy 02/06/22 Past Anesthesia/Blood Transfusion Reactions: Unable to Obtain Past Psychological History: Unable to Obtain Smoking Status: Never smoker Past Alcohol Use History: Unable to Obtain Past Drug Use History: Unable to Obtain - Past Family History Mother Family Medical History: Unable to Obtain <Padmini Aldana - Last Filed: 06/07/23 20:25> General Exam Limitations: no limitations General appearance: alert, lethargic, cachectic Head exam: Present: atraumatic, normocephalic, normal inspection Eye exam: Present: normal appearance, PERRL, EOMI. Absent: scleral icterus, conjunctival injection, periorbital swelling ENT exam: Present: normal exam, mucous membranes moist Respiratory exam: Present: normal lung sounds bilaterally. Absent: respiratory distress, wheezes, rales, rhonchi, stridor Cardiovascular Exam: Present: regular rate, normal rhythm, normal heart sounds. Absent: systolic murmur, diastolic murmur, rubs, gallop, clicks GI/Abdominal exam: Present: soft, normal bowel sounds. Absent: distended, tenderness, guarding, rebound, rigid Neurological exam: Present: alert, CN II-XII intact Psychiatric exam: Present: normal affect, normal mood Skin exam: Present: warm, dry, intact, pallor. Absent: rash <Padmini Aldana - Last Filed: 06/07/23 20:25> Course Vital Signs 06/07/23 06/07/23 06/07/23 13:10 16:26 17:26 Temperature 98 F Pulse Rate 68 64 68 Respiratory 18 18 18 Rate Blood Pressure 113/85 116/78 124/89 O2 Sat by Pulse 98 98 98 Oximetry 06/07/23 21:44 Temperature Pulse Rate 59 L Respiratory 12 Rate Blood Pressure 126/88 O2 Sat by Pulse 99 Oximetry Medical Decision Making - Lab Data Result diagrams: 06/07/23 14:21 06/07/23 14:21 - EKG Data -: EKG Interpreted by Me - Radiology Data Radiology results: report reviewed, image reviewed <Padmini Aldana - Last Filed: 06/07/23 20:25> - Lab Data Result diagrams: 06/07/23 14:21 06/07/23 14:21 <Jessee Saleh - Last Filed: 06/07/23 22:57> - Medical Decision Making Was pt. sent in by a medical professional or institution (, PA, [employer], urgent care, hospital, or senior living...) When possible be specific @ -[No] Did you speak to anyone other than the patient for history (EMS, parent, family, police, friend...)? What history was obtained from this source @ -[Family Did you review nursing and triage notes (agree or disagree)? Why? @ -[I reviewed and agree with nursing and triage notes] Were old charts reviewed (outside hosp., previous admission, EMS record, old EKG, old radiological studies, urgent care reports/EKG's, senior living records)? Report findings @ -[No old charts were reviewed] Differential Diagnosis (chest pain, altered mental status, abdominal pain women, abdominal pain men, vaginal bleeding, weakness, fever, dyspnea, syncope, headache, dizziness, GI bleed, back pain, seizure, CVA, palpatations, mental health, musculoskeletal)? @ -[Differential Weakness: Hypoglycemia, shock, sepsis, hyponatremia, anemia, infection, CA, ETOH, adverse medicine reaction, overdose, stroke, this is not meant to be an all-inclusive list. EKG interpreted by me (3pts min.). @ -[As above] X-rays interpreted by me (1pt min.). @ -[None done] CT interpreted by me (1pt min.). @ -[CT abdomen and pelvis showed 6.6 cm liver mass. There are other liver lesions noted. There is mild thickening of the bladder wall. U/S interpreted by me (1pt. min.). @ -[None done] What testing was considered but not performed or refused? (CT, X-rays, U/S, labs)? Why? @ -[None] What meds were considered but not given or refused? Why? @ -[None] Did you discuss the management of the patient with other professionals (professionals i.e. , PA, [employer], lab, RT, psych nurse, director social welfare, registered medical transcriptionist, teacher, deputy probation officer, case management coordinator)? Give summary @ -[No] Was smoking cessation discussed for >3mins.? @ -[No] Was critical care preformed (if so, how long)? @ -[No] Were there social determinants of health that impacted care today? How? (Homelessness, low income, unemployed, alcoholism, drug addiction, transportation, low edu. Level, literacy, decrease access to med. care, [facility], rehab)? @ -[No] Was there de-escalation of care discussed even if they declined (Discuss DNR or withdrawal of care, Hospice)? DNR status @ -[No] What co-morbidities impacted this encounter? (DM, HTN, Smoking, COPD, CAD, Cancer, CVA, ARF, Chemo, Hep., AIDS, mental health diagnosis, sleep apnea, morbid obesity)? @ -[None] Was patient admitted / discharged? Hospital course, mention meds given and route, prescriptions, significant lab abnormalities, going to OR and other pertinent info. @ -[Labs obtained in the ER were only significant for a UTI. CT abdomen and pelvis showed 6.6 cm liver mass. There are other liver lesions noted. There is mild thickening of the bladder wall. Patient received IV fluids, Zofran for symptom control in the ER. This case will be signed over to Dr. Saleh pending disposition.] Undiagnosed new problem with uncertain prognosis? @ -[No] Drug Therapy requiring intensive monitoring for toxicity (Heparin, Nitro, Insulin, Cardizem)? @ -[No] Were any procedures done? @ -[No] Diagnosis/symptom? @ -[Intractable nausea and vomiting Acute, or Chronic, or Acute on Chronic? @ -[Acute Uncomplicated (without systemic symptoms) or Complicated (systemic symptoms)? @ -[Uncomplicated] Side effects of treatment? @ -[No] Exacerbation, Progression, or Severe Exacerbation? @ -[No] Poses a threat to life or bodily function? How? (Chest pain, USA, CA, pneumonia, PE, COPD, DKA, ARF, appy, cholecystitis, CVA, Diverticulitis, Homicidal, Suicidal, threat to staff... and all critical care pts) @ -[No] (Padmini Aldana) Patient signed out to me pending results of CT imaging of the brain. I interpreted the CT imaging of brain reveals no obvious acute intracranial process. I discussed results with the admitting physician, Dr. todd who had already accepted the patient pending results of the CT. Patient be admitted for intractable abdominal pain, nausea and vomiting. He was in agreement with the plan. Diagnosis/symptom? @ -Abdominal pain, nausea, vomiting, UTI Acute, or Chronic, or Acute on Chronic? @ -Acute on chronic Uncomplicated (without systemic symptoms) or Complicated (systemic symptoms)? @ -Complicated Side effects of treatment? @ -none Exacerbation, Progression, or Severe Exacerbation] @ -no Poses a threat to life or bodily function? @ -Unlikely (Jessee Saleh) - Lab Data Lab Results 06/07/23 06/07/23 06/07/23 Range/Units 14:21 14:21 14:21 WBC 9.7 (3.8-10.6) k/uL RBC 4.81 (4.30-5.90) m/uL Hgb 14.4 (13.0-17.5) gm/dL Hct 44.1 (39.0-53.0) % MCV 91.7 (80.0-100.0) fL MCH 29.9 (25.0-35.0) pg MCHC 32.7 (31.0-37.0) g/dL RDW 13.7 (11.5-15.5) % Plt Count 417 (150-450) k/uL MPV 7.3 Sodium 136 L (137-145) mmol/L Potassium 4.4 (3.5-5.1) mmol/L Chloride 100 (98-107) mmol/L Carbon Dioxide 26 (22-30) mmol/L Anion Gap 10 mmol/L BUN 28 H (9-20) mg/dL Creatinine 0.60 L (0.66-1.25) mg/dL Est GFR (CKD-EPI)AfAm >90 (>60 ml/min/1.73 sqM) Est GFR (CKD-EPI)NonAf >90 (>60 ml/min/1.73 sqM) Glucose 102 H (74-99) mg/dL Plasma Lactic Acid Stone (0.7-2.0) mmol/L Calcium 9.4 (8.4-10.2) mg/dL Total Bilirubin 0.5 (0.2-1.3) mg/dL AST 18 (17-59) U/L ALT 15 (4-49) U/L Alkaline Phosphatase 75 (38-126) U/L Total Protein 6.1 L (6.3-8.2) g/dL Albumin 3.6 (3.5-5.0) g/dL Lipase 92 (23-300) U/L Urine Color Yellow Urine Appearance Cloudy (Clear) Urine pH 6.0 (5.0-8.0) Ur Specific [place] 1.021 (1.001-1.035) Urine Protein Trace H (Negative) Urine Glucose (UA) Negative (Negative) Urine Ketones Negative (Negative) Urine Blood Negative (Negative) Urine Nitrite Negative (Negative) Urine Bilirubin Negative (Negative) Urine Urobilinogen <2.0 (<2.0) mg/dL Ur Leukocyte Esterase Moderate H (Negative) Urine RBC 5 (0-5) /hpf Urine WBC 38 H (0-5) /hpf Urine Bacteria Rare H (None) /hpf Urine Mucus Few H (None) /hpf Influenza Type A (PCR) (Not Detectd) Influenza Type B (PCR) (Not Detectd) RSV (PCR) (Not Detectd) SARS-CoV-2 (PCR) (Not Detectd) 06/07/23 06/07/23 Range/Units 14:21 14:21 WBC (3.8-10.6) k/uL RBC (4.30-5.90) m/uL Hgb (13.0-17.5) gm/dL Hct (39.0-53.0) % MCV (80.0-100.0) fL MCH (25.0-35.0) pg MCHC (31.0-37.0) g/dL RDW (11.5-15.5) % Plt Count (150-450) k/uL MPV Sodium (137-145) mmol/L Potassium (3.5-5.1) mmol/L Chloride (98-107) mmol/L Carbon Dioxide (22-30) mmol/L Anion Gap mmol/L BUN (9-20) mg/dL Creatinine (0.66-1.25) mg/dL Est GFR (CKD-EPI)AfAm (>60 ml/min/1.73 sqM) Est GFR (CKD-EPI)NonAf (>60 ml/min/1.73 sqM) Glucose (74-99) mg/dL Plasma Lactic Acid Stone 1.8 (0.7-2.0) mmol/L Calcium (8.4-10.2) mg/dL Total Bilirubin (0.2-1.3) mg/dL AST (17-59) U/L ALT (4-49) U/L Alkaline Phosphatase (38-126) U/L Total Protein (6.3-8.2) g/dL Albumin (3.5-5.0) g/dL Lipase (23-300) U/L Urine Color Urine Appearance (Clear) Urine pH (5.0-8.0) Ur Specific [place] (1.001-1.035) Urine Protein (Negative) Urine Glucose (UA) (Negative) Urine Ketones (Negative) Urine Blood (Negative) Urine Nitrite (Negative) Urine Bilirubin (Negative) Urine Urobilinogen (<2.0) mg/dL Ur Leukocyte Esterase (Negative) Urine RBC (0-5) /hpf Urine WBC (0-5) /hpf Urine Bacteria (None) /hpf Urine Mucus (None) /hpf Influenza Type A (PCR) Not Detected (Not Detectd) Influenza Type B (PCR) Not Detected (Not Detectd) RSV (PCR) Not Detected (Not Detectd) SARS-CoV-2 (PCR) Not Detected (Not Detectd) - EKG Data EKG Comments: EKG taken at 13:18 shows a normal sinus rhythm with no acute ST segment or T- wave abnormalities noted. Ventricular rate 66, CA interval 157, QRS duration 97, QT/QTC 398/412. (Padmini Aldana) Disposition <Padmini Aldana - Last Filed: 06/07/23 20:25> Time of Disposition: 21:55 <Jessee Saleh - Last Filed: 06/07/23 22:57> Clinical Impression: UTI (urinary tract infection), Nausea and vomiting, Abdominal pain, Cancer Disposition: ADMITTED IP TO THIS HOSP Condition: Stable
--- NOTE | 2023-06-07 20:41 | CT ---
EXAMINATION TYPE: CT brain w con CT DLP: 1254.4 mGycm, Automated exposure control for dose reduction was used. DATE OF EXAM: 06/07/2023 7:07 PM COMPARISON: CT head without contrast 12/27/2022, MR brain with and without contrast 04/30/2023.. CLINICAL INDICATION:Male, 57 years old with history of n/v; PHH, Hx of brain CA w/mets. TECHNIQUE: Axial CT images of the brain were obtained with coronal and sagittal reformats created and reviewed. IV contrast was given for concurrent CT abdomen/pelvis. Contrast used: Please see separate contrast CT abdomen pelvis. Oral contrast used: none. FINDINGS: Presence of contrast somewhat limits evaluation for acute process. No definite acute cranial hemorrha ge, mass effect, or midline shift. No clear evidence of an acute territorial infarct. Redemonstration of diffuse prominence of the ventricles, similar to the prior study. Mild to moderate generalized brain atrophy and chronic microvascular ischemic changes. Redemonstration of an area of mixed low-attenuation and small focal hyperdensities suggesting calcifications within the left pariet al lobe resection cavity, grossly stable but better evaluated on MRI. Continued MR surveillance is re commended. No definite new areas of abnormal enhancement are seen by CT. Mucosal thickening of the left maxillary sinus. Postoperative changes from previous superior left ove r the left parietal region. No acute osseous abnormality is seen. Orbital contents appear grossly int act. IMPRESSION: 1. No acute intracranial abnormality suggested. 2. Other intracranial findings appear similar to the recent prior MRI, including left parietal resec tion cavity and moderate ventriculomegaly.
[2023-06-07] MEDS ORDERED: MORPHINE SULFATE 4 MG/ML SYRINGE IV PRN (21:32)
[2023-06-07] MEDS ORDERED: NALOXONE 0.4 MG/ML 1 ML VIAL IV PRN (21:32)
[2023-06-07] MEDS ORDERED: ALBUTEROL NEBULIZED 2.5 MG/3 ML INHALATION PRN (22:56)
[2023-06-07] MEDS ORDERED: MAGNESIUM HYDROXIDE 2,400 MG/30 ML CUP PO PRN (22:56)
[2023-06-07] MEDS ORDERED: NON FORMULARY DRUG (Acetaminophen [Tylenol 8 Hour] 650 MG Tablet) PO PRN (22:56)
[2023-06-07] MEDS ORDERED: ONDANSETRON 4 MG TAB PO PRN (22:56)
[2023-06-07] MEDS ORDERED: MAG HYDROX/AL HYDROX/SIMETH 30 ML CUP PO PRN (22:56)
[2023-06-07] MEDS: SODIUM CHLORIDE 0.9% 1,000 ML IV SCH (23:35)
[2023-06-08 06:38] LABS: Basophils # (A) 0.1 k/uL (0-0.2); Basophils % (A) 1 %; Eosinophils # (A) 0.3 k/uL (0-0.7); Eosinophils % (A) 3 %; HCT 42.9 % (39.0-53.0); HGB 13.7 gm/dL (13.0-17.5); Lymphocytes # (A) 0.9 k/uL (1.0-4.8); Lymphocytes % (A) 11 %; MCH 29.9 pg (25.0-35.0); MCV 93.5 fL (80.0-100.0); Mean Platelet Volume 7.1; Monocytes # (A) 0.4 k/uL (0-1.0); Monocytes % (A) 5 %; Neutrophils # (A) 6.6 k/uL (1.3-7.7); Neutrophils % (A) 78 %; Platelet Count 394 k/uL (150-450); RBC 4.59 m/uL (4.30-5.90); RDW 13.5 % (11.5-15.5); WBC 8.5 k/uL (3.8-10.6)
[2023-06-08 06:46] LABS: African American GFR (CKD) >90 (>60 ml/min/1.73 sqM); Anion Gap 8 mmol/L; Blood Urea Nitrogen 20 mg/dL (9-20); Calcium 9.2 mg/dL (8.4-10.2); Carbon Dioxide 26 mmol/L (22-30); Chloride 104 mmol/L (98-107); Glucose 92 mg/dL (74-99); Non-African American GFR(CKD) >90 (>60 ml/min/1.73 sqM); Potassium 4.3 mmol/L (3.5-5.1); Sodium 138 mmol/L (137-145)
[2023-06-08] MEDS ORDERED: PANTOPRAZOLE 40 MG TABLET PO SCH (07:30)
[2023-06-08] MEDS: TAMSULOSIN 0.4 MG CAP.ER.24H PO SCH ×2 (08:31→20:15)
[2023-06-08] MEDS: SODIUM CHLORIDE 0.9% 1,000 ML IV SCH ×2 (08:31→22:42)
[2023-06-08] MEDS ORDERED: MORPHINE SULFATE 2 MG/ML SYRINGE IV PRN (09:19)
--- NOTE | 2023-06-08 10:41 | US ---
EXAMINATION TYPE: US venous doppler duplex LE BI DATE OF EXAM: 06/08/2023 10:25 AM COMPARISON: NONE CLINICAL INDICATION: Male, 57 years old with history of Evaluated for DVT; SIDE PERFORMED: bilateral TECHNIQUE: The lower extremity deep venous system is examined utilizing real time linear array sonog senthil with graded compression, doppler sonography and color-flow sonography. VESSELS IMAGED: Common Femoral Vein Deep Femoral Vein Greater Saphenous Vein * Femoral Vein Popliteal Vein Small Saphenous Vein * Proximal Calf Veins (* superficial vessels) Right Leg: No evidence of DVT Left Leg: No evidence of DVT IMPRESSION: No evidence for DVT within the bilateral lower extremities imaged from the groin to the upper calves.
[2023-06-08 12:10] VITALS: BMI 21.5
--- NOTE | 2023-06-08 13:32 | P.HPIM ---
History of Present Illness H&P Date: 06/08/23 Chief Complaint: Abdominal pain * 57-year-old gentleman with history of glioblastoma multiform follows up with oncology, recent admission for urinary tract infection, bladder outlet flow obstruction presents to the emergency department with complains of nausea, vomiting. * Patient was discharged in early May to subacute rehab when he was admitted for urinary tract infection, urine cultures grew E. coli treated with IV Rocephin and transition to oral Ceftin * While at rehab facility patient was constipated and had episode of nausea and vomiting. Ultrasound was done at the facility which showed questionable lesions throughout the abdomen. Patient also complained of epigastric pain and pain in his calf on presentation * Workup in ED included basic chemistry which shows sodium of 136 potassium 4.4 BU and 28 creatinine 0.6 blood glucose 102 * CBC obtained showed WBC 9.7 hemoglobin 14.4 platelet 417 * Urinalysis obtained showed moderate leukocyte esterase urine WBC 38., Rare bacteria, nitrite negative * Patient tested negative for influenza, RSV and coronavirus * While in ED patient was given IV fluid bolus and dose of Zofran * CT abdomen and pelvis obtained in ED showed 6.6 cm mass of left liver lobe with peripheral enhancement concern for hemangioma MRI liver recommended/scattered fluid-filled small bowel loops throughout the abdomen representing mild ileus/mild circumferential thickening or bladder noted concerning for cystitis/extensive sigmoid diverticulosis noted * CT head obtained in ER negative for acute intracranial process, left parietal resection cavity and moderate ventriculomegaly noted unchanged from previous MRI * Patient admitted to medical floor and started treatment for urinary tract infection with consultation from infectious disease REVIEW OF SYSTEMS: Nausea/vomiting/abdominal pain/ RESOLVED CONSTITUTIONAL: No fever, no malaise, no fatigue. HEENT: No recent visual problems or hearing problems. Denied any sore throat. CARDIOVASCULAR: No chest pain, orthopnea, PND, no palpitations, no syncope. PULMONARY: No shortness of breath, no cough, no hemoptysis. GASTROINTESTINAL: Nausea/vomiting/abdominal pain NEUROLOGICAL: No headaches, no weakness, no numbness. HEMATOLOGICAL: Denies any bleeding or petechiae. GENITOURINARY: Denies any burning micturition, frequency, or urgency. MUSCULOSKELETAL/RHEUMATOLOGICAL: Denies any joint pain, swelling, or any muscle pain. ENDOCRINE: Denies any polyuria or polydipsia. PHYSICAL EXAMINATION: GENERAL: The patient is alert and oriented x 1 , not in any acute distress HEENT: Pupils are round and equally reacting to light. EOMI. CARDIOVASCULAR: S1 and S2 present. No murmurs PULMONARY: Chest is clear to auscultation, no wheezing or crackles. ABDOMEN: Soft, nontender, nondistended, normoactive bowel sounds. castellanos cath in place MUSCULOSKELETAL: No joint swelling or deformity. EXTREMITIES: No cyanosis, clubbing, or pedal edema. NEUROLOGICAL: Weakness noted on right upper and lower extremity that is chronic. Past Medical History Past Medical History: Cancer, Chest Pain / Angina Additional Past Medical History / Comment(s): GBM 02/02/2022, metabolic ence phalopathy, muscle weakness, UTI, malignant neoplasm of brain with mets. History of Any Multi-Drug Resistant Organisms: None Reported Past Surgical History: No Surgical Hx Reported Additional Past Surgical History / Comment(s): crainiotomy 02/06/22 Past Anesthesia/Blood Transfusion Reactions: Unable to Obtain Past Psychological History: Unable to Obtain Smoking Status: Never smoker Past Alcohol Use History: Unable to Obtain Past Drug Use History: Unable to Obtain - Past Family History Mother Family Medical History: Unable to Obtain Medications and Allergies Home Medications Medication Instructions Recorded Confirmed Type Tamsulosin HCl [Flomax] 0.4 mg PO BID 01/30/22 06/07/23 History Ondansetron [Zofran] 4 mg PO Q8H PRN 12/26/22 06/07/23 History Acetaminophen [Tylenol 8 Hour] 650 mg PO Q6H PRN 06/07/23 06/07/23 History Albuterol Sulfate [Albuterol 2 puff PO RT-Q6H PRN 06/07/23 06/07/23 History Sulfate Hfa] Mag Hydrox/Aluminum Hyd/Simeth 30 ml PO Q4H PRN 06/07/23 06/07/23 History [Mylanta Maximum Strength Liq] Magnesium Hydroxide [Milk of 2,400 mg PO Q72H PRN 06/07/23 06/07/23 History Magnesia] Omeprazole [PriLOSEC] 20 mg PO DAILY 06/07/23 06/07/23 History Allergies Allergy/AdvReac Type Severity Reaction Status Date / Time No Known Allergies Allergy Verified 06/07/23 15:56 Physical Exam Vitals: Vital Signs Temp Pulse Pulse Resp BP BP Pulse Ox 06/08/23 08:08 97.5 F L 62 16 136/83 98 06/08/23 02:00 97.9 F 63 16 143/90 99 06/08/23 00:38 97.6 F 62 16 132/83 99 06/07/23 23:37 68 16 134/91 98 06/07/23 21:44 59 L 12 126/88 99 06/07/23 17:26 68 18 124/89 98 06/07/23 16:26 64 18 116/78 98 06/07/23 13:10 98 F 68 18 113/85 98 Intake and Output 06/07/23 06/08/23 06/08/23 22:59 06:59 14:59 Intake Total 590 Output Total 600 Balance -10 Intake: Oral 590 Output: Urine 600 Other: Weight 68.039 kg Results CBC & Chem 7: 06/08/23 05:49 06/08/23 05:49 Labs: Abnormal Lab Results - Last 24 Hours (Table) 06/07/23 06/07/23 06/08/23 Range/Units 14:21 14:21 05:49 Lymphocytes # 0.9 L (1.0-4.8) k/uL Sodium 136 L (137-145) mmol/L BUN 28 H (9-20) mg/dL Creatinine 0.60 L (0.66-1.25) mg/dL Glucose 102 H (74-99) mg/dL Total Protein 6.1 L (6.3-8.2) g/dL Urine Protein Trace H (Negative) Ur Leukocyte Esterase Moderate H (Negative) Urine WBC 38 H (0-5) /hpf Urine Bacteria Rare H (None) /hpf Urine Mucus Few H (None) /hpf 06/08/23 Range/Units 05:49 Lymphocytes # (1.0-4.8) k/uL Sodium (137-145) mmol/L BUN (9-20) mg/dL Creatinine 0.60 L (0.66-1.25) mg/dL Glucose (74-99) mg/dL Total Protein (6.3-8.2) g/dL Urine Protein (Negative) Ur Leukocyte Esterase (Negative) Urine WBC (0-5) /hpf Urine Bacteria (None) /hpf Urine Mucus (None) /hpf Thrombosis Risk Factor Assmnt - DVT/VTE Prophylaxis DVT/VTE Prophylaxis: Pharmacologic Prophylaxis ordered, Mechanical Prophylaxis ordered Assessment and Plan Assessment: Assessment and plan Recurrent urinary tract infection/history of E. coli UTI Catheter associated urinary tract infection Acute enteritis Partial small bowel ileus with nausea and vomiting Liver mass History of glioblastoma multiform History of urinary retention requiring straight catheterization * In regards to urinary tract infection, urine cultures ordered continue patient on IV Rocephin day 1, infectious disease consulted, Castellanos catheter to be changed * In regards to acute enteritis, serial abdominal exams continue patient on regular diet, monitor for diarrhea, as needed Zofran for nausea continue with fluid resuscitation * In regards to liver mass, MRI liver ordered, alpha-fetoprotein ordered * In regards to history of glioblastoma continue follow-up with oncology outpatient * Patient was recently discharged to subacute rehab will need physical therapy occupational therapy reevaluation * Status is full code
[2023-06-08] MEDS: ONDANSETRON 4 MG/2 ML VIAL IVP PRN (13:33)
[2023-06-08] MEDS: PANTOPRAZOLE 40 MG/10 ML VIAL IVP SCH (20:14)
--- NOTE | 2023-06-08 21:35 | P.CONS ---
History of Present Illness - Reason for Consult Consult date: 06/08/23 - History of Present Illness Patient is a 57-year-old male with a past medical history significant for glioblastoma multiforme in this patient with a recent admission to the hospital with sepsis secondary to UTI urine culture positive for E. coli patient was treated with IV Rocephin and the patient was subsequent discharged home on oral Ceftin patient of now brought back to the hospital with mental status albert es also nausea and vomiting apparently patient has been constipated and started having nausea and vomiting the day of presentation to the hospital patient on arrival to the ER was afebrile and no fever has been recorded subsequently patient was not tachycardic hypotensive or hypoxic white count was normal creatinine 0.602 enzymes are normal amylase lipase were normal he did have a positive UA influenza RSV and COVID testing was negative patient did have abdominal pelvis CT with evidence of 6.6 cm mass of the left lobe of the liver concerning for possible hemangioma there was mild circumferential bladder wall thickening concerning for cystitis diverticulosis but no diverticulitis with concern for recurrent UTI patient was started on Rocephin infectious disease was consulted for further management of antibiotic therapy most information has been obtained from review the chart and the patient though alert but not a good historian he did answer no to most of the question to answer Past Medical History Past Medical History: Cancer, Chest Pain / Angina Additional Past Medical History / Comment(s): GBM 02/02/2022, metabolic e ncephalopathy, muscle weakness, UTI, malignant neoplasm of brain with mets. History of Any Multi-Drug Resistant Organisms: None Reported Past Surgical History: No Surgical Hx Reported Additional Past Surgical History / Comment(s): crainiotomy 02/06/22 Past Anesthesia/Blood Transfusion Reactions: Unable to Obtain Past Psychological History: Unable to Obtain Smoking Status: Never smoker Past Alcohol Use History: Unable to Obtain Past Drug Use History: Unable to Obtain - Past Family History Mother Family Medical History: Unable to Obtain Medications and Allergies Home Medications Medication Instructions Recorded Confirmed Type Tamsulosin HCl [Flomax] 0.4 mg PO BID 01/30/22 06/07/23 History Ondansetron [Zofran] 4 mg PO Q8H PRN 12/26/22 06/07/23 History Acetaminophen [Tylenol 8 Hour] 650 mg PO Q6H PRN 06/07/23 06/07/23 History Albuterol Sulfate [Albuterol 2 puff PO RT-Q6H PRN 06/07/23 06/07/23 History Sulfate Hfa] Mag Hydrox/Aluminum Hyd/Simeth 30 ml PO Q4H PRN 06/07/23 06/07/23 History [Mylanta Maximum Strength Liq] Magnesium Hydroxide [Milk of 2,400 mg PO Q72H PRN 06/07/23 06/07/23 History Magnesia] Omeprazole [PriLOSEC] 20 mg PO DAILY 06/07/23 06/07/23 History Allergies Allergy/AdvReac Type Severity Reaction Status Date / Time No Known Allergies Allergy Verified 06/07/23 15:56 Physical Exam Vitals: Vital Signs Temp Pulse Pulse Resp BP BP Pulse Ox 06/08/23 09:42 16 06/08/23 08:08 97.5 F L 62 16 136/83 98 06/08/23 02:00 97.9 F 63 16 143/90 99 06/08/23 00:38 97.6 F 62 16 132/83 99 06/07/23 23:37 68 16 134/91 98 06/07/23 21:44 59 L 12 126/88 99 06/07/23 17:26 68 18 124/89 98 06/07/23 16:26 64 18 116/78 98 06/07/23 13:10 98 F 68 18 113/85 98 Intake and Output 06/07/23 06/08/23 06/08/23 22:59 06:59 14:59 Intake Total 590 Output Total 600 Balance -10 Intake: Oral 590 Output: Urine 600 Other: Voiding Method Indwelling Catheter Weight 68.039 kg Results CBC & Chem 7: 06/09/23 07:38 06/09/23 07:38 Labs: Abnormal Lab Results - Last 24 Hours (Table) 06/07/23 06/07/23 06/08/23 Range/Units 14:21 14:21 05:49 Lymphocytes # 0.9 L (1.0-4.8) k/uL Sodium 136 L (137-145) mmol/L BUN 28 H (9-20) mg/dL Creatinine 0.60 L (0.66-1.25) mg/dL Glucose 102 H (74-99) mg/dL Total Protein 6.1 L (6.3-8.2) g/dL Urine Protein Trace H (Negative) Ur Leukocyte Esterase Moderate H (Negative) Urine WBC 38 H (0-5) /hpf Urine Bacteria Rare H (None) /hpf Urine Mucus Few H (None) /hpf 06/08/23 Range/Units 05:49 Lymphocytes # (1.0-4.8) k/uL Sodium (137-145) mmol/L BUN (9-20) mg/dL Creatinine 0.60 L (0.66-1.25) mg/dL Glucose (74-99) mg/dL Total Protein (6.3-8.2) g/dL Urine Protein (Negative) Ur Leukocyte Esterase (Negative) Urine WBC (0-5) /hpf Urine Bacteria (None) /hpf Urine Mucus (None) /hpf Assessment and Plan Plan: 1patient presented to hospital with nausea and vomiting in this patient who did have a history of glioblastoma and recent admission to the hospital with symptomatic UTI secondary to E. coli, patient did have a CT of abdominal pelvis did not mention any evidence of colitis or diverticulitis that shows evidence of bladder wall thickening suspicious for cystitis and did have a positive UA possibly responsible for her symptoms 2-patient to continue Rocephin 1 g daily while waiting for the culture to finalize We will follow on clinical condition and cultures to further adjust medication if needed Thank you for this consultation we will follow the patient along with you Dictation was produced using [employer] dictation software. please excuse any grammatical, word or spelling errors. Time with Patient: Greater than 30
[2023-06-08] MEDS: ACETAMINOPHEN TAB 325 MG TAB PO PRN (22:49)
[2023-06-09 08:21] LABS: HCT 43.7 % (39.0-53.0); HGB 14.2 gm/dL (13.0-17.5); MCH 30.3 pg (25.0-35.0); MCHC 32.5 g/dL (31.0-37.0); MCV 93.3 fL (80.0-100.0); Mean Platelet Volume 7.1; Platelet Count 405 k/uL (150-450); RBC 4.69 m/uL (4.30-5.90); RDW 13.7 % (11.5-15.5); WBC 8.7 k/uL (3.8-10.6)
[2023-06-09 08:31] LABS: African American GFR (CKD) >90 (>60 ml/min/1.73 sqM); Anion Gap 9 mmol/L; Blood Urea Nitrogen 14 mg/dL (9-20); C Reactive Protein 1.3 mg/dL (<1.0); Calcium 9.1 mg/dL (8.4-10.2); Carbon Dioxide 23 mmol/L (22-30); Chloride 103 mmol/L (98-107); Glucose 97 mg/dL (74-99); Non-African American GFR(CKD) >90 (>60 ml/min/1.73 sqM); Sodium 135 mmol/L (137-145)
[2023-06-09] MEDS: PANTOPRAZOLE 40 MG/10 ML VIAL IVP SCH ×2 (08:39→20:03)
[2023-06-09] MEDS: ENOXAPARIN 40 MG/0.4 ML SYRINGE SQ SCH (08:39)
[2023-06-09] MEDS: TAMSULOSIN 0.4 MG CAP.ER.24H PO SCH ×2 (08:39→20:03)
[2023-06-09] MEDS: SODIUM CHLORIDE 0.9% 1,000 ML IV SCH ×2 (08:42→23:06)
[2023-06-09] MEDS: ONDANSETRON 4 MG/2 ML VIAL IVP PRN ×2 (11:09→20:03)
--- NOTE | 2023-06-09 12:36 | P.PN ---
Subjective Progress Note Date: 06/09/23 Principal diagnosis: Reason for follow-up is possible UTI Patient is a 57-year-old male with a past medical history significant for glioblastoma multiforme presented to hospital with mental status changes did have a positive concerning for recurrent UTI CT shows evidence of possible cystitis; On today's evaluation and that is 06/09/2023, the patient continues to be a febrile, the patient is breathing comfortably on room air and no need for supplemental oxygen, the patient denies chest pain shortness of breath or cough , patient denies nausea/vomiting , no abdominal pain and no diarrhea has been reported Patient did have a white count of 8.7, creatinine 0.56, urine culture negative so far Objective - Vital Signs Vital signs: Vital Signs Temp 97.6 F 06/09/23 07:27 Pulse 76 06/09/23 07:27 Resp 17 06/09/23 07:27 BP 126/79 06/09/23 07:27 Pulse Ox 99 06/09/23 07:27 FiO2 Intake & Output 06/08/23 06/09/23 06/09/23 18:59 06:59 18:59 Intake Total 900 950 Output Total 750 800 Balance 150 150 Weight 68.039 kg Intake: Intake, IV Titration 900 950 Amount Sodium Chloride 0.9% 1, 900 900 000 ml @ 75 mls/hr IV . [id number] [facility], [facility] Rx#:[id number] cefTRIAXone 1 gm In 50 Sodium Chloride 0.9% 50 ml @ 100 mls/hr IVPB Q24H [facility], [facility]1983 Rx#:[id number] Output: Urine 750 800 Other: Voiding Method Indwelling Catheter Indwelling Catheter - Exam GENERAL DESCRIPTION: A middle-aged male lying in bed in no distress RESPIRATORY SYSTEM: Unlabored breathing , clear to auscultation anteriorly HEART: S1 S2 regular rate and rhythm , ABDOMEN: Soft , no tenderness EXTREMITIES: No edema feet - Labs CBC & Chem 7: 06/09/23 07:38 06/09/23 07:38 Labs: Abnormal Lab Results - Last 24 Hours (Table) 06/09/23 Range/Units 07:38 Sodium 135 L (137-145) mmol/L Creatinine 0.56 L (0.66-1.25) mg/dL C-Reactive Protein 1.3 H (<1.0) mg/dL Microbiology - Last 24 Hours (Table) 06/07/23 14:21 Urine Culture - Final Urine,Voided Assessment and Plan (1) UTI (urinary tract infection) Current Visit: Yes Status: Acute Code(s): N39.0 - URINARY TRACT INFECTION, SITE NOT SPECIFIED SNOMED Code(s): 98011218 Plan: 1patient presented to hospital with nausea and vomiting in this patient who did have a history of glioblastoma and recent admission to the hospital with symptomatic UTI secondary to E. coli, patient did have a CT of abdominal pelvis did not mention any evidence of colitis or diverticulitis that shows evidence of bladder wall thickening suspicious for cystitis and did have a positive UA possibly responsible for her symptoms 2-patient did have some clinical improvement and will continue Rocephin 1 g daily while waiting for the culture to finalize Dictation was produced using [employer] dictation software. please excuse any grammatical, word or spelling errors. Time with Patient: Less than 30
--- NOTE | 2023-06-09 13:09 | P.PN ---
Subjective Progress Note Date: 06/09/23 * 57-year-old gentleman with history of glioblastoma multiform follows up with oncology, recent admission for urinary tract infection, bladder outlet flow obstruction presents to the emergency department with complains of nausea, vomiting. * Patient was discharged in early May to subacute rehab when he was admitted for urinary tract infection, urine cultures grew E. coli treated with IV Rocephin and transition to oral Ceftin * While at rehab facility patient was constipated and had episode of nausea and vomiting. Ultrasound was done at the facility which showed questionable lesions throughout the abdomen. Patient also complained of epigastric pain and pain in his calf on presentation * Workup in ED included basic chemistry which shows sodium of 136 potassium 4.4 BU and 28 creatinine 0.6 blood glucose 102 * CBC obtained showed WBC 9.7 hemoglobin 14.4 platelet 417 * Urinalysis obtained showed moderate leukocyte esterase urine WBC 38., Rare bacteria, nitrite negative * Patient tested negative for influenza, RSV and coronavirus * While in ED patient was given IV fluid bolus and dose of Zofran * CT abdomen and pelvis obtained in ED showed 6.6 cm mass of left liver lobe with peripheral enhancement concern for hemangioma MRI liver recommended/scattered fluid-filled small bowel loops throughout the abdomen representing mild ileus/mild circumferential thickening or bladder noted concerning for cystitis/extensive sigmoid diverticulosis noted * CT head obtained in ER negative for acute intracranial process, left parietal resection cavity and moderate ventriculomegaly noted unchanged from previous MRI * Patient admitted to medical floor and started treatment for urinary tract infection with consultation from infectious disease * 06/09/2023: Patient seen and evaluated bedside, patient is alert however per family still confused. Had episode of nausea and vomiting x-ray KUB ordered for follow-up on ileus, follow-up CBC within normal limits, follow-up serum chemistry shows sodium 135 renal function within normal limits CRP 1.3 alpha- fetoprotein less than 3. MRI brain and MRI liver ordered. Patient radiation oncologist Dr. Castillo consulted as well based on family request since he mis sed outpatient appointment REVIEW OF SYSTEMS: Nausea/vomiting/abdominal pain/ intermittent CONSTITUTIONAL: No fever, no malaise, no fatigue. HEENT: No recent visual problems or hearing problems. Denied any sore throat. CARDIOVASCULAR: No chest pain, orthopnea, PND, no palpitations, no syncope. PULMONARY: No shortness of breath, no cough, no hemoptysis. GASTROINTESTINAL: Nausea/vomiting/abdominal pain NEUROLOGICAL: No headaches, no weakness, no numbness. HEMATOLOGICAL: Denies any bleeding or petechiae. GENITOURINARY: Denies any burning micturition, frequency, or urgency. MUSCULOSKELETAL/RHEUMATOLOGICAL: Denies any joint pain, swelling, or any muscle pain. ENDOCRINE: Denies any polyuria or polydipsia. PHYSICAL EXAMINATION: See vitals below GENERAL: The patient is alert and oriented x 1 , not in any acute distress HEENT: Pupils are round and equally reacting to light. EOMI. CARDIOVASCULAR: S1 and S2 present. No murmurs PULMONARY: Chest is clear to auscultation, no wheezing or crackles. ABDOMEN: Soft, nontender, nondistended, normoactive bowel sounds. castellanos cath in place MUSCULOSKELETAL: No joint swelling or deformity. EXTREMITIES: No cyanosis, clubbing, or pedal edema. NEUROLOGICAL: Weakness noted on right upper and lower extremity that is chronic. Objective - Vital Signs Vital signs: Vital Signs Temp 97.8 F 06/09/23 12:01 Pulse 70 06/09/23 12:01 Resp 18 06/09/23 12:01 BP 114/84 06/09/23 12:01 Pulse Ox 98 06/09/23 12:01 FiO2 Intake & Output 06/08/23 06/09/23 06/09/23 18:59 06:59 18:59 Intake Total 900 950 Output Total 750 800 Balance 150 150 Weight 68.039 kg Intake: Intake, IV Titration 900 950 Amount Sodium Chloride 0.9% 1, 900 900 000 ml @ 75 mls/hr IV . [id number] [facility] Rx#:[id number] cefTRIAXone 1 gm In 50 Sodium Chloride 0.9% 50 ml @ 100 mls/hr IVPB Q24H [facility] Rx#:[id number] Output: Urine 750 800 Other: Voiding Method Indwelling Catheter Indwelling Catheter Indwelling Catheter - Labs CBC & Chem 7: 06/09/23 07:38 06/09/23 07:38 Labs: Abnormal Lab Results - Last 24 Hours (Table) 06/09/23 Range/Units 07:38 Sodium 135 L (137-145) mmol/L Creatinine 0.56 L (0.66-1.25) mg/dL C-Reactive Protein 1.3 H (<1.0) mg/dL Microbiology - Last 24 Hours (Table) 06/07/23 14:21 Urine Culture - Final Urine,Voided Assessment and Plan Assessment: Assessment and plan Recurrent urinary tract infection/history of E. coli UTI Catheter associated urinary tract infection Acute enteritis/ bowel ileus Partial small bowel ileus with nausea and vomiting Liver mass History of glioblastoma multiform History of urinary retention requiring straight catheterization * In regards to urinary tract infection, urine cultures ordered continue patient on IV Rocephin day 2, infectious disease consulted, Castellanos catheter to be changed * In regards to acute enteritis, serial abdominal exams continue patient on regular diet, monitor for diarrhea, as needed Zofran for nausea continue with fluid resuscitation/x-ray KUB ordered * In regards to liver mass, MRI liver ordered, alpha-fetoprotein normal limits * In regards to history of glioblastoma continue follow-up with oncology outpatient, MRI brain ordered, radiation oncology consulted * Patient was recently discharged to subacute rehab will need physical therapy occupational therapy reevaluation * Status is full code Time with Patient: Greater than 30
--- NOTE | 2023-06-09 14:03 | XR ---
EXAMINATION TYPE: XR KUB portable DATE OF EXAM: 06/09/2023 1:56 PM CLINICAL INDICATION:Male, 57 years old with history of ileus follow-up; [facility] COMPARISON: CT abdomen 06/07/2023 TECHNIQUE: One radiographic view of the abdomen was obtained. FINDINGS: The bowel gas pattern is nonspecific without dilated loops of small or large bowel. There i s no evidence for organomegaly or pneumoperitoneum. The osseous structures are intact. Scattered ph leboliths are identified in the pelvis. Fecal material and gas are demonstrated throughout the colon and rectum. IMPRESSION: Nonspecific bowel gas pattern without radiographic evidence for acute process.
--- NOTE | 2023-06-09 15:48 | P.CONS ---
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 He underwent adjuvant chemoradiation finishing 60 Gy in 30 fractions on 04/18/2022. He developed concern for recurrence vs pseudoprogression with significant edema and ended up starting Avastin in 06/2022. The patient had recently been in subacute rehab following treatment for UTI. However, he presented to the ER on June 07 as a transfer from the [facility] secondary to nausea, vomiting and constipation. The patient was found to have concern for persistent UTI despite recent outpatient treatment. A computed tomography scan of the abdomen and pelvis was performed. This revealed a 6 cm mass involving the left lobe of the liver with enhancement. There are a couple of other smaller lesions noted. Hemangioma was favored. The patient also had some scattered prominent small bowel loops concerning for mild ileus. There was some persistent bladder wall thickening with catheter placement. A brain CT was also performed on June 07, which was largely stable when compared with the patient's MRI from early April. Upon speaking with nursing, the patient has reportedly had continued vomiting. He appears to be a very poor historian at this time. He is having significant word finding difficulties. He is having difficulty answering any questions. Review of Systems ROS unobtainable: due to mental status Past Medical History Past Medical History: Cancer, Chest Pain / Angina Additional Past Medical History / Comment(s): GBM 02/02/2022, metabolic encephalopathy, muscle weakness, UTI, History of Any Multi-Drug Resistant Organisms: None Reported Past Surgical History: No Surgical Hx Reported Additional Past Surgical History / Comment(s): crainiotomy 02/06/22 Past Anesthesia/Blood Transfusion Reactions: Unable to Obtain Past Psychological History: Unable to Obtain Smoking Status: Never smoker Past Alcohol Use History: Unable to Obtain Past Drug Use History: Unable to Obtain - Past Family History Mother Family Medical History: Unable to Obtain Medications and Allergies Home Medications Medication Instructions Recorded Confirmed Type Tamsulosin HCl [Flomax] 0.4 mg PO BID 01/30/22 06/07/23 History Ondansetron [Zofran] 4 mg PO Q8H PRN 12/26/22 06/07/23 History Acetaminophen [Tylenol 8 Hour] 650 mg PO Q6H PRN 06/07/23 06/07/23 History Albuterol Sulfate [Albuterol 2 puff PO RT-Q6H PRN 06/07/23 06/07/23 History Sulfate Hfa] Mag Hydrox/Aluminum Hyd/Simeth 30 ml PO Q4H PRN 06/07/23 06/07/23 History [Mylanta Maximum Strength Liq] Magnesium Hydroxide [Milk of 2,400 mg PO Q72H PRN 06/07/23 06/07/23 History Magnesia] Omeprazole [PriLOSEC] 20 mg PO DAILY 06/07/23 06/07/23 History Allergies Allergy/AdvReac Type Severity Reaction Status Date / Time No Known Allergies Allergy Verified 06/07/23 15:56 Physical Exam Vitals: Vital Signs Temp Pulse Resp BP Pulse Ox 06/09/23 12:01 97.8 F 70 18 114/84 98 06/09/23 07:27 97.6 F 76 17 126/79 99 06/09/23 01:39 97.4 F L 61 18 125/85 98 06/08/23 20:22 97.3 F L 66 16 146/90 98 06/08/23 19:55 16 Intake and Output 06/09/23 06/09/23 06/09/23 06:59 14:59 22:59 Intake Total 950 Output Total 800 Balance 150 Intake: Intake, IV Titration 950 Amount Sodium Chloride 0.9% 1, 900 000 ml @ 75 mls/hr IV . [id number] [facility] Rx#:[id number] cefTRIAXone 1 gm In 50 Sodium Chloride 0.9% 50 ml @ 100 mls/hr IVPB Q24H [facility] Rx#:[id number] Output: Urine 800 Other: Voiding Method Indwelling Catheter - Constitutional General appearance: disheveled, no acute distress - EENT Eyes: EOMI, PERRLA ENT: hearing grossly normal - Neck Neck: no lymphadenopathy - Respiratory Respiratory: bilateral: CTA - Cardiovascular Rhythm: regular - Integumentary Integumentary: normal - Neurologic Neurologic: CNII-XII intact - Musculoskeletal Musculoskeletal: right sided weakness (Right arm ataxic, difficulty following commands) - Psychiatric Psychiatric: no A&O x's 3 (Unable to name hospital or date. 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 He underwent adjuvant chemoradiation finishing 60 Gy in 30 fractions on 04/18/2022. He developed concern for recurrence vs pseudoprogression with significant edema and ended up starting Avastin in 06/2022. He has now been hospitalized secondary to acute onset nausea and vomiting with declining performance status and confusion. He has been treated for UTI recently. 1. Confusion/Nausea: Patient does appear worse than his typical baseline. He normally has some mild word finding difficulties. He appears to now have significant expressive aphasia - cannot hold a conversation. Although his CT of the brain was largely stable, I do find this worrisome despite his recent UTI treatment. Furthermore, the patient did have a similar cystic lesion in the liver from a CT performed at [facility] in 01/2022. This is not a new finding. 2. Weakness: Of note, the patient's right upper extremity appears ataxic. He has difficulty following commands. Considering his history, I do think we need to obtain an MRI of the brain JESUS. Although his MRI from April did not show clear evidence of progression, the patient clinically is doing much worse overall. Furthermore, the patient has not had any systemic therapy for a month now. His most recent Avastin treatment was on 05/09/23. If the patient's MRI of the brain does show any worsening, he should be initiated on dexamethasone. 3. UTI: Appreciate ID recs, patient has had ongoing outpatient treatment. I do not think this alone is to blame for his decline in performance status. Time with Patient: Greater than 30
[2023-06-10 08:40] LABS: HCT 43.1 % (39.6-50.0); HGB 14.4 g/dL (13.0-17.0); MCH 30.8 pg (27.0-32.0); MCHC 33.4 g/dL (32.0-37.0); MCV 92.3 FL (80.0-97.0); Mean Platelet Volume 8.7 FL (9.5-12.2); NRBC Per 100 WBC 0 X 10*3/uL (0.00-0.01); Platelet Count 404 X 10*3/uL (140-440); RBC 4.67 X 10*6/uL (4.40-5.60); RDW 13.2 % (11.5-14.5); WBC 9.16 X 10*3/uL (4.50-10.00)
[2023-06-10] MEDS: PANTOPRAZOLE 40 MG/10 ML VIAL IVP SCH ×2 (08:55→19:50)
[2023-06-10 09:00] LABS: BUN/Creat Ratio 18.67 Ratio (12.00-20.00); Blood Urea Nitrogen 11.2 mg/dL (9.0-27.0); Calcium 9.2 mg/dL (8.7-10.3); Carbon Dioxide 25.7 mmol/L (21.6-31.8); Chloride 101 mmol/L (96-109); Glucose 94 mg/dL (70-110); Potassium 4.1 mmol/L (3.5-5.5); Sodium 138 mmol/L (135-145)
[2023-06-10] MEDS: ENOXAPARIN 40 MG/0.4 ML SYRINGE SQ SCH (09:31)
[2023-06-10] MEDS: TAMSULOSIN 0.4 MG CAP.ER.24H PO SCH ×2 (09:31→19:50)
--- NOTE | 2023-06-10 13:05 | P.PN ---
Subjective Progress Note Date: 06/10/23 * 57-year-old gentleman with history of glioblastoma multiform follows up with oncology, recent admission for urinary tract infection, bladder outlet flow obstruction presents to the emergency department with complains of nausea, vomiting. * Patient was discharged in early May to subacute rehab when he was admitted for urinary tract infection, urine cultures grew E. coli treated with IV Rocephin and transition to oral Ceftin * While at rehab facility patient was constipated and had episode of nausea and vomiting. Ultrasound was done at the facility which showed questionable lesions throughout the abdomen. Patient also complained of epigastric pain and pain in his calf on presentation * Workup in ED included basic chemistry which shows sodium of 136 potassium 4.4 BU and 28 creatinine 0.6 blood glucose 102 * CBC obtained showed WBC 9.7 hemoglobin 14.4 platelet 417 * Urinalysis obtained showed moderate leukocyte esterase urine WBC 38., Rare bacteria, nitrite negative * Patient tested negative for influenza, RSV and coronavirus * While in ED patient was given IV fluid bolus and dose of Zofran * CT abdomen and pelvis obtained in ED showed 6.6 cm mass of left liver lobe with peripheral enhancement concern for hemangioma MRI liver recommended/scattered fluid-filled small bowel loops throughout the abdomen representing mild ileus/mild circumferential thickening or bladder noted concerning for cystitis/extensive sigmoid diverticulosis noted * CT head obtained in ER negative for acute intracranial process, left parietal resection cavity and moderate ventriculomegaly noted unchanged from previous MRI * Patient admitted to medical floor and started treatment for urinary tract infection with consultation from infectious disease * 06/09/2023: Patient seen and evaluated bedside, patient is alert however per family still confused. Had episode of nausea and vomiting x-ray KUB ordered for follow-up on ileus, follow-up CBC within normal limits, follow-up serum chemistry shows sodium 135 renal function within normal limits CRP 1.3 alpha- fetoprotein less than 3. MRI brain and MRI liver ordered. Patient radiation oncologist Dr. Castillo consulted as well based on family request since he mis sed outpatient appointment * 06/10/2023: Patient seen and evaluated bedside, patient does appear confused, seen by radiation oncology, MRI brain change to stat, MRI liver pending, no more nausea, vomiting REVIEW OF SYSTEMS: Nausea/vomiting/abdominal pain/ intermittent improved as of 06/10 CONSTITUTIONAL: No fever, no malaise, no fatigue. HEENT: No recent visual problems or hearing problems. Denied any sore throat. CARDIOVASCULAR: No chest pain, orthopnea, PND, no palpitations, no syncope. PULMONARY: No shortness of breath, no cough, no hemoptysis. GASTROINTESTINAL: Nausea/vomiting/abdominal pain NEUROLOGICAL: No headaches, no weakness, no numbness. HEMATOLOGICAL: Denies any bleeding or petechiae. GENITOURINARY: Denies any burning micturition, frequency, or urgency. MUSCULOSKELETAL/RHEUMATOLOGICAL: Denies any joint pain, swelling, or any muscle pain. ENDOCRINE: Denies any polyuria or polydipsia. PHYSICAL EXAMINATION: See vitals below GENERAL: The patient is alert and oriented x 1 , not in any acute distress HEENT: Pupils are round and equally reacting to light. EOMI. CARDIOVASCULAR: S1 and S2 present. No murmurs PULMONARY: Chest is clear to auscultation, no wheezing or crackles. ABDOMEN: Soft, nontender, nondistended, normoactive bowel sounds. castellanos cath in place MUSCULOSKELETAL: No joint swelling or deformity. EXTREMITIES: No cyanosis, clubbing, or pedal edema. NEUROLOGICAL: Weakness noted on right upper and lower extremity that is chronic., Worsened right upper and lower extremity weakness, dysarthria Objective - Vital Signs Vital signs: Vital Signs Temp 98.2 F 06/10/23 07:13 Pulse 66 06/10/23 07:13 Resp 16 06/10/23 07:13 BP 132/89 06/10/23 07:13 Pulse Ox 99 06/10/23 07:13 FiO2 Intake & Output 06/09/23 06/10/23 06/10/23 18:59 06:59 18:59 Intake Total 1250 Output Total 1100 1500 1200 Balance -1100 -250 -1200 Intake: Intake, IV Titration 950 Amount Sodium Chloride 0.9% 1, 900 000 ml @ 75 mls/hr IV . [id number] [facility] Rx#:[id number] cefTRIAXone 1 gm In 50 Sodium Chloride 0.9% 50 ml @ 100 mls/hr IVPB Q24H [facility] Rx#:[id number] Oral 300 Output: Urine 1100 1500 1200 Other: Voiding Method Indwelling Catheter Indwelling Catheter - Labs CBC & Chem 7: 06/10/23 05:36 06/10/23 05:36 Labs: Abnormal Lab Results - Last 24 Hours (Table) 06/10/23 Range/Units 05:36 MPV 8.7 L (9.5-12.2) FL Assessment and Plan Assessment: Assessment and plan Recurrent urinary tract infection/history of E. coli UTI Catheter associated urinary tract infection Acute enteritis/ bowel ileus Partial small bowel ileus with nausea and vomiting Liver mass History of glioblastoma multiform History of urinary retention requiring straight catheterization * In regards to urinary tract infection, urine cultures ordered continue patient on IV Rocephin day 3 , infectious disease consulted, Castellanos catheter to be changed * In regards to acute enteritis, serial abdominal exams continue patient on regular diet, monitor for diarrhea, as needed Zofran for nausea continue with fluid resuscitation/x-ray KUB reviewed nonobstructive bowel gas pattern noted * In regards to liver mass, MRI liver ordered, alpha-fetoprotein normal limits * In regards to history of glioblastoma continue follow-up with oncology outpatient, MRI brain ordered, radiation oncology consulted/appreciate recommendation * Patient was recently discharged to subacute rehab will need physical therapy occupational therapy reevaluation * Status is full code Time with Patient: Greater than 30
[2023-06-10] MEDS: ACETAMINOPHEN TAB 325 MG TAB PO PRN ×2 (14:23→19:50)
[2023-06-10] MEDS: ONDANSETRON 4 MG/2 ML VIAL IVP PRN (14:24)
--- NOTE | 2023-06-10 17:51 | MR ---
EXAMINATION TYPE: MR brain wo/w con DATE OF EXAM: 06/10/2023 5:16 PM CLINICAL INDICATION:Male, 57 years old with history of Right-sided hemiparesis history of glioblastom a; PHH, Right-sided hemiparesis history of glioblastoma, COMPARISON: CT 06/07/2023. Brain 04/30/2023. TECHNIQUE: Multi planar, multi sequence imaging was performed through the brain including: T1, T2, In version recovery, susceptibility weighted imaging and gradient echo imaging and Diffusion weighted im aging. The patient was then given intravenous contrast and multi planar, T1 fat-saturation images wer e obtained. IV Contrast: 7 cc Gadavist FINDINGS: Overall the areas of restricted diffusion within the primary parietal region and morphology is a left parietal region are not significantly changed from 04/30/2023. Surgical bed is difficult to measure given its irregular shape. There is increased enhancement along the anterior margin and surrounding t he surgical bed cystectomy prior on 04/30/2023. There remains a cavitary area measuring at least 5.9 x 4.6 cm on sagittal imaging previously measuring 5.5 x 3.9 cm. Area of enhancement anteriorly measur ing 5.3 x 3.8 cm, previously 2.0 x 2.1 cm. There is scattered foci of restricted diffusion around the surgical bed and within the surgical bed w hich are not unchanged from prior exam. Blooming artifact within the surgical bed palpable with hemosiderin deposition. There is dilation of the lateral ventricles similar prior. Mucosal thickening left maxillary sinus. The globes and lenses appear intact. . Moderate scattered burden of chronic small vessel ischemic disease redemonstrated and not significant changed. No evidence for acute infarction. No midline shift, herniation, or effacement of basal cisterns. Mild ventriculomegaly is unchanged, probably related to central cerebral atrophy. Punctate areas of abnormal signal again present bilaterally and favored to represent prominent Vircho w-Chip spaces rather than tiny old lacunar infarct. Abnormal signal along the lateral margin of the left midbrain again demonstrated and is compatible with vertebrobasilar system is diminutive in size which can be associated with vertebrobasilar insufficiency. Dural venous sinuses are patent. Midline structures demonstrate normal morphology. The craniocervical junction is normal. Moderate to severe mucosal thickening ethmoid air cells and left maxillary sinus again demonstrated. Globes are intact. IMPRESSION: 1. Findings suggesting progression of with increasing enhancement around the surgical bed compared to prior. 2. Stable ventriculomegaly.
[2023-06-10] MEDS: SODIUM CHLORIDE 0.9% 1,000 ML IV SCH (18:20)
[2023-06-11] MEDS: SODIUM CHLORIDE 0.9% 1,000 ML IV SCH ×2 (00:30→21:10)
[2023-06-11] MEDS: ENOXAPARIN 40 MG/0.4 ML SYRINGE SQ SCH (08:43)
[2023-06-11] MEDS: TAMSULOSIN 0.4 MG CAP.ER.24H PO SCH ×2 (08:43→21:11)
[2023-06-11] MEDS: PANTOPRAZOLE 40 MG/10 ML VIAL IVP SCH ×2 (08:43→21:11)
[2023-06-11 09:04] LABS: HCT 40.7 % (39.6-50.0); HGB 13.9 g/dL (13.0-17.0); MCH 30.5 pg (27.0-32.0); MCHC 34.2 g/dL (32.0-37.0); MCV 89.3 FL (80.0-97.0); Mean Platelet Volume 8.6 FL (9.5-12.2); NRBC Per 100 WBC 0 X 10*3/uL (0.00-0.01); Platelet Count 393 X 10*3/uL (140-440); RBC 4.56 X 10*6/uL (4.40-5.60); RDW 13.4 % (11.5-14.5); WBC 8.07 X 10*3/uL (4.50-10.00)
[2023-06-11] MEDS ORDERED: DEXAMETHASONE SOD PHOSPHATE 4 MG/ML 1 ML VIAL IVP PRN (09:25)
[2023-06-11 09:34] LABS: Blood Urea Nitrogen 10.9 mg/dL (9.0-27.0); Calcium 8.6 mg/dL (8.7-10.3); Carbon Dioxide 23.6 mmol/L (21.6-31.8); Chloride 104 mmol/L (96-109); Glucose 100 mg/dL (70-110); Potassium 3.6 mmol/L (3.5-5.5); Sodium 138 mmol/L (135-145)
[2023-06-11] MEDS: DEXAMETHASONE SOD PHOSPHATE 4 MG/ML 1 ML VIAL IVP SCH ×2 (10:17→18:14)
--- NOTE | 2023-06-11 11:58 | P.PN ---
Subjective Progress Note Date: 06/11/23 * 57-year-old gentleman with history of glioblastoma multiform follows up with oncology, recent admission for urinary tract infection, bladder outlet flow obstruction presents to the emergency department with complains of nausea, vomiting. * Patient was discharged in early May to subacute rehab when he was admitted for urinary tract infection, urine cultures grew E. coli treated with IV Rocephin and transition to oral Ceftin * While at rehab facility patient was constipated and had episode of nausea and vomiting. Ultrasound was done at the facility which showed questionable lesions throughout the abdomen. Patient also complained of epigastric pain and pain in his calf on presentation * Workup in ED included basic chemistry which shows sodium of 136 potassium 4.4 BU and 28 creatinine 0.6 blood glucose 102 * CBC obtained showed WBC 9.7 hemoglobin 14.4 platelet 417 * Urinalysis obtained showed moderate leukocyte esterase urine WBC 38., Rare bacteria, nitrite negative * Patient tested negative for influenza, RSV and coronavirus * While in ED patient was given IV fluid bolus and dose of Zofran * CT abdomen and pelvis obtained in ED showed 6.6 cm mass of left liver lobe with peripheral enhancement concern for hemangioma MRI liver recommended/scattered fluid-filled small bowel loops throughout the abdomen representing mild ileus/mild circumferential thickening or bladder noted concerning for cystitis/extensive sigmoid diverticulosis noted * CT head obtained in ER negative for acute intracranial process, left parietal resection cavity and moderate ventriculomegaly noted unchanged from previous MRI * Patient admitted to medical floor and started treatment for urinary tract infection with consultation from infectious disease * 06/09/2023: Patient seen and evaluated bedside, patient is alert however per family still confused. Had episode of nausea and vomiting x-ray KUB ordered for follow-up on ileus, follow-up CBC within normal limits, follow-up serum chemistry shows sodium 135 renal function within normal limits CRP 1.3 alpha- fetoprotein less than 3. MRI brain and MRI liver ordered. Patient radiation oncologist Dr. Castillo consulted as well based on family request since he mis sed outpatient appointment * 06/10/2023: Patient seen and evaluated bedside, patient does appear confused, seen by radiation oncology, MRI brain change to stat, MRI liver pending, no more nausea, vomiting * 06/11/2023: Patient seen and evaluated and bedside, plan discussed with radiation oncology, MRI brain reviewed does show enhancement with size measuring 5.3 x 3.8 cm around the anterior margin of surgical bed. Per radiation oncology this seems to be recurrence and worsening since last MRI on 04/30/23 did not have significant changes REVIEW OF SYSTEMS: Nausea/vomiting/abdominal pain/ intermittent improved as of 06/10 CONSTITUTIONAL: No fever, no malaise, no fatigue. HEENT: No recent visual problems or hearing problems. Denied any sore throat. CARDIOVASCULAR: No chest pain, orthopnea, PND, no palpitations, no syncope. PULMONARY: No shortness of breath, no cough, no hemoptysis. GASTROINTESTINAL: Nausea/vomiting/abdominal pain NEUROLOGICAL: Patient does have chronic weakness right upper lower extremity and speech impairment which is chronic however bolus HEMATOLOGICAL: Denies any bleeding or petechiae. GENITOURINARY: Denies any burning micturition, frequency, or urgency. MUSCULOSKELETAL/RHEUMATOLOGICAL: Denies any joint pain, swelling, or any muscle pain. ENDOCRINE: Denies any polyuria or polydipsia. PHYSICAL EXAMINATION: See vitals below GENERAL: The patient is alert and oriented x 1 , not in any acute distress HEENT: Pupils are round and equally reacting to light. EOMI. CARDIOVASCULAR: S1 and S2 present. No murmurs PULMONARY: Chest is clear to auscultation, no wheezing or crackles. ABDOMEN: Soft, nontender, nondistended, normoactive bowel sounds. castellanos cath in place MUSCULOSKELETAL: No joint swelling or deformity. EXTREMITIES: No cyanosis, clubbing, or pedal edema. NEUROLOGICAL: Weakness noted on right upper and lower extremity that is chronic., Worsened right upper and lower extremity weakness motor strength 3 x 5 right upper extremity tuba for right lower extremity, dysarthria Objective - Vital Signs Vital signs: Vital Signs Temp 97.5 F L 06/11/23 07:40 Pulse 63 06/11/23 07:40 Resp 19 06/11/23 07:40 BP 150/86 06/11/23 07:40 Pulse Ox 99 06/11/23 07:40 FiO2 Intake & Output 06/10/23 06/11/23 06/11/23 18:59 06:59 18:59 Intake Total 180 Output Total 1200 1500 Balance -1200 -1500 180 Intake: Oral 180 Output: Urine 1200 1500 Uretheral (Castellanos) 1500 Other: Voiding Method Indwelling Catheter - Labs CBC & Chem 7: 06/11/23 06:00 06/11/23 06:00 Labs: Abnormal Lab Results - Last 24 Hours (Table) 06/11/23 06/11/23 Range/Units 06:00 06:00 MPV 8.6 L (9.5-12.2) FL Creatinine 0.5 L (0.6-1.5) mg/dL BUN/Creatinine Ratio 21.80 H (12.00-20.00) Ratio Calcium 8.6 L (8.7-10.3) mg/dL Assessment and Plan Assessment: Assessment and plan glioblastoma multiform with worsening right-sided weakness with concern for recurrence Recurrent urinary tract infection/history of E. coli UTI Catheter associated urinary tract infection Acute enteritis/ bowel ileus resolved Partial small bowel ileus with nausea and vomiting resolved Liver mass History of urinary retention requiring straight catheterization * In regards to glioblastoma history MRI brain completed discussed with radiation oncology concern for recurrence will coordinate with family regarding goals of care patient started on IV Decadron 4 mg every 6 hours * In regards to urinary tract infection, urine cultures ordered continue patient on IV Rocephin day 5/ , infectious disease consulted, Castellanos catheter changed * In regards to acute enteritis, serial abdominal exams continue patient on regu lar diet, monitor for diarrhea, as needed Zofran for nausea continue with fluid resuscitation/x-ray KUB reviewed nonobstructive bowel gas pattern noted * In regards to liver mass, MRI liver ordered, alpha-fetoprotein normal limits * In regards to history of glioblastoma continue follow-up with oncology outpatient, MRI brain ordered, radiation oncology consulted/appreciate recommendation * Patient was recently discharged to subacute rehab will need physical therapy occupational therapy reevaluation * Status is full code Time with Patient: Greater than 30
--- NOTE | 2023-06-11 14:59 | P.PN ---
Subjective Progress Note Date: 06/10/23 Principal diagnosis: Reason for follow-up is possible UTI Patient is a 57-year-old male with a past medical history significant for glioblastoma multiforme presented to hospital with mental status changes did have a positive concerning for recurrent UTI CT shows evidence of possible cystitis; On today's evaluation and that is 06/10/2023, the patient remains to be afeb rile, the patient is breathing comfortably on room air and denies any shortness of breath, the patient denies chest pain or cough , patient denies abdominal pain, no nausea/vomiting and no diarrhea Patient did have a white count of 9.6, creatinine 0.6, urine culture negative so far Objective - Vital Signs Vital signs: Vital Signs Temp 98.2 F 06/10/23 07:13 Pulse 66 06/10/23 07:13 Resp 16 06/10/23 07:13 BP 132/89 06/10/23 07:13 Pulse Ox 99 06/10/23 07:13 FiO2 Intake & Output 06/09/23 06/10/23 06/10/23 18:59 06:59 18:59 Intake Total 1250 Output Total 1100 1500 400 Balance -1100 -250 -400 Intake: Intake, IV Titration 950 Amount Sodium Chloride 0.9% 1, 900 000 ml @ 75 mls/hr IV . [id number] [facility] Rx#:[id number] cefTRIAXone 1 gm In 50 Sodium Chloride 0.9% 50 ml @ 100 mls/hr IVPB Q24H [facility] Rx#:[id number] Oral 300 Output: Urine 1100 1500 400 Other: Voiding Method Indwelling Catheter Indwelling Catheter - Exam GENERAL DESCRIPTION: A middle-aged male lying in bed in no distress RESPIRATORY SYSTEM: Unlabored breathing , clear to auscultation anteriorly HEART: S1 S2 regular rate and rhythm , ABDOMEN: Soft , no tenderness EXTREMITIES: No edema feet - Labs CBC & Chem 7: 06/11/23 06:00 06/11/23 06:00 Labs: Abnormal Lab Results - Last 24 Hours (Table) 06/10/23 Range/Units 05:36 MPV 8.7 L (9.5-12.2) FL Assessment and Plan (1) UTI (urinary tract infection) Current Visit: Yes Status: Acute Code(s): N39.0 - URINARY TRACT INFECTION, SITE NOT SPECIFIED SNOMED Code(s): 78625686 Plan: 1patient presented to hospital with nausea and vomiting in this patient who did have a history of glioblastoma and recent admission to the hospital with symptomatic UTI secondary to E. coli, patient did have a CT of abdominal pelvis did not mention any evidence of colitis or diverticulitis that shows evidence of bladder wall thickening suspicious for cystitis and did have a positive UA possibly responsible for her symptoms 2-patient remains to be febrile but was normal currently being treated with empiric Rocephin 1 g daily and monitor clinical course closely Dictation was produced using [employer] software. please excuse any grammatical, word or spelling errors. Time with Patient: Less than 30
--- NOTE | 2023-06-11 15:02 | P.PN ---
Subjective Progress Note Date: 06/11/23 Principal diagnosis: Reason for follow-up is possible UTI Patient is a 57-year-old male with a past medical history significant for glioblastoma multiforme presented to hospital with mental status changes did have a positive concerning for recurrent UTI CT shows evidence of possible cystitis; On today's evaluation and that is 06/11/2023, the patient continues to be af ebrile, the patient is breathing comfortably on room air without the need for supplemental oxygen, the patient denies shortness of breath chest pain and no significant cough , patient denies nausea/vomiting, no abdominal pain and no diarrhea Patient did have a white count is 8.07, creatinine 0.5, urine culture negative so far, MRI of the brain concerning for progression of the brain tumor Objective - Vital Signs Vital signs: Vital Signs Temp 97.5 F L 06/11/23 07:40 Pulse 63 06/11/23 07:40 Resp 19 06/11/23 07:40 BP 150/86 06/11/23 07:40 Pulse Ox 99 06/11/23 07:40 FiO2 Intake & Output 06/10/23 06/11/23 06/11/23 18:59 06:59 18:59 Intake Total 180 Output Total 1200 1500 Balance -1200 -1500 180 Intake: Oral 180 Output: Urine 1200 1500 Uretheral (Murphy) 1500 Other: Voiding Method Indwelling Catheter - Exam GENERAL DESCRIPTION: A middle-aged male lying in bed in no distress RESPIRATORY SYSTEM: Unlabored breathing , clear to auscultation anteriorly HEART: S1 S2 regular rate and rhythm , ABDOMEN: Soft , no tenderness EXTREMITIES: No edema feet - Labs CBC & Chem 7: 06/11/23 06:00 06/11/23 06:00 Labs: Abnormal Lab Results - Last 24 Hours (Table) 06/11/23 06/11/23 Range/Units 06:00 06:00 MPV 8.6 L (9.5-12.2) FL Creatinine 0.5 L (0.6-1.5) mg/dL BUN/Creatinine Ratio 21.80 H (12.00-20.00) Ratio Calcium 8.6 L (8.7-10.3) mg/dL Assessment and Plan (1) UTI (urinary tract infection) Current Visit: Yes Status: Acute Code(s): N39.0 - URINARY TRACT INFECTION, SITE NOT SPECIFIED SNOMED Code(s): 57944655 Plan: 1patient presented to hospital with nausea and vomiting in this patient who did have a history of glioblastoma and recent admission to the hospital with symptomatic UTI secondary to E. coli, patient did have a CT of abdominal pelvis did not mention any evidence of colitis or diverticulitis that shows evidence of bladder wall thickening suspicious for cystitis and did have a positive UA possibly responsible for her symptoms 2-patient symptoms could be more likely related to progression of underlying Glioblastoma. he's currently covered with Rocephin 1 g daily to continue to finish a seven-day course of therapy Dictation was produced using [employer] dictation software. please excuse any grammatical, word or spelling errors. Time with Patient: Less than 30
[2023-06-11] MEDS: ONDANSETRON 4 MG/2 ML VIAL IVP PRN (18:13)
--- NOTE | 2023-06-11 19:26 | MR ---
EXAMINATION TYPE: MR liver wo/w con DATE OF EXAM: 06/11/2023 6:17 PM CLINICAL INDICATION:Male, 57 years old with history of Liver lesion; PHH, Liver lesion. History of br ain glioblastoma. COMPARISON: CT scan abdomen from 06/07/2023. TECHNIQUE: Multiplanar multi-sequence imaging was performed without contrast. Post contrast imaging was performed. Post IV contrast subtraction images were also submitted for review. IV Contrast: 7 cc Gadobutrol FINDINGS: LOWER CHEST: Within the right lung base is a peripheral nodule measuring up to 2.3 cm. ABDOMEN Liver: There is a mass within the left hepatic lobe as seen on prior CT and measures 6.5 x 4.8 x 6.4 cm this is predominantly high T2 high DWI and low T1 signal. This demonstrates heterogenous postcontr ast enhancement which is predominantly centrally. And does progress. Additional scattered high T2 signal lesions are seen throughout the liver including the right hepatic lobe measuring 18 mm. These do not demonstrate suspicious postcontrast enhancement. Gallbladder and Bile ducts: There is felt to be layering biliary sludge seen on diffusion restriction sequences. Pancreas: No ductal dilation. No evidence for solid mass. Spleen: Normal for size. Adrenal glands: Unremarkable. Kidneys: No evidence for obstructive uropathy. No suspicious renal masses. Stomach and Bowel: No evidence for bowel wall thickening or evidence for obstruction.. Scattered col onic diverticula present. Peritoneum: No evidence of pneumoperitoneum or free fluid. Vasculature: No aortic aneurysm. Musculoskeletal: The osseous structures appear intact. Lymph Nodes: No gross evidence for lymphadenopathy. Abdominal wall: Unremarkable. IMPRESSION: 1. Left hepatic lobe mass with central irregular enhancement given patient's history of malignancy v ersus suspicious until proven otherwise. Consider biopsy for definitive diagnosis. Given findings in #2 consider pet/CT for further workup for metastatic disease. 2. Right lung base peripheral nodule concerning for malignancy.
[2023-06-12] MEDS: DEXAMETHASONE SOD PHOSPHATE 4 MG/ML 1 ML VIAL IVP SCH ×5 (00:48→23:48)
--- NOTE | 2023-06-12 08:08 | CDI ---
Documentation Clarification Form Date: 06/12/2023 07:51:32 AM From: Kathy Smith RN CCDS Phone: [phone] Admit Date: 06/10/2023 11:59:00 AM Patient Name: Adrián Sevilla Visit Number: [id number] Discharge Date: ATTENTION: The Clinical Documentation Specialists (CDI) and [facility] Coding Staff appreciate your assistance in clarifying documentation. Please respond to the clarification below the line at the bottom and electronically sign. The CDI & [facility] Coding staff will review the response and follow-up if needed. Please note: Queries are made part of the Legal Health Record. If you have any questions, please contact the author of this message via ITS. Dr. Virginia Delarosa buttock pressure ulcer stage 2 is documented by Nursing 06/10 in pressure ulcer assessment. Based on this information and the findings below, is there an additional diagnosis that is clinically appropriate for this patient? History/Risk Factors: 57-year-old male presents to ED with nausea and vomiting. Glioblastoma of brain with mets, Metabolic encephalopathy and Catheter related UTI. 06/08, H&P Clinical Indicators: Location: Buttock Wound description: drainage scant serous drainage. Treatment: Turn Q2H, Foam with Border, Absorbent under pad, Hourly rounding, Dimethicone cloth Is there an additional diagnosis that is clinically appropriate for this patient? [ y ] Buttock Pressure Ulcer Stage 2 [ ] Other condition, please specify [ ] Unable to determine Clinical Definitions: Stage 1 Pressure Ulcer: intact skin, non-blanching redness of local area Stage 2 Pressure Ulcer: Partial thickness, loss of dermis, pink wound bed Stage 3 Pressure Ulcer: Full thickness tissue loss Stage 4 Pressure Ulcer: Full thickness tissue loss with exposed bone, tendon, or muscle. Unstageable pressure ulcer: Full thickness tissue loss in which the base of the ulcer is covered by slough (yellow, webb, fagan, green or brown) and/or eschar (webb, brown or black) in the wound bed. (Template Last Revised: September 2020) MTDD
--- NOTE | 2023-06-12 08:28 | CDI ---
Documentation Clarification Form Date: 06/12/2023 08:11:39 AM From: Kathy Smith RN CCDS Phone: [phone] Admit Date: 06/10/2023 11:59:00 AM Patient Name: Adrián Sevilla Visit Number: [id number] Discharge Date: ATTENTION: The Clinical Documentation Specialists (CDI) and [facility] Coding Staff appreciate your assistance in clarifying documentation. Please respond to the clarification below the line at the bottom and electronically sign. The CDI & [facility] Coding staff will review the response and follow-up if needed. Please note: Queries are made part of the Legal Health Record. If you have any questions, please contact the author of this message via ITS. Dr. Virginia Fletcher Your patient has the documented symptom of Confusion 06/10, Medicine note Additional clarification regarding the etiology/cause of this symptom is requested. History/Risk Factors: 57-year-old male presents to ED with nausea and vomiting. Glioblastoma of brain with mets, Metabolic encephalopathy and Catheter related UTI. 06/08, H&P Clinical Indicators: Oncology consult, 06/09: Confusion/Nausea: Patient does appear worse than his typical baseline. Brain MRI: Medicine Progress, 06/11 MRI brain reviewed does show enhancement with size measuring 5.3 x 3.8 cm around the anterior margin of surgical bed. Treatment: Dexamethasone 4mg IVP Q6HR Please clarify the etiology of the symptom of Confusion: [ y ] Metabolic Encephalopathy due to Glioblastoma [ ] Other condition (please specify) [ ] Unable to determine (Template Last Revised: August 2020) MTDD
[2023-06-12] MEDS: ENOXAPARIN 40 MG/0.4 ML SYRINGE SQ SCH (08:46)
[2023-06-12] MEDS: PANTOPRAZOLE 40 MG/10 ML VIAL IVP SCH ×2 (08:46→20:08)
[2023-06-12] MEDS: SODIUM CHLORIDE 0.9% 1,000 ML IV SCH ×2 (08:47→20:08)
[2023-06-12] MEDS: TAMSULOSIN 0.4 MG CAP.ER.24H PO SCH ×2 (08:47→20:08)
--- NOTE | 2023-06-12 12:27 | P.PN ---
Subjective Progress Note Date: 06/12/23 * 57-year-old gentleman with history of glioblastoma multiform follows up with oncology, recent admission for urinary tract infection, bladder outlet flow obstruction presents to the emergency department with complains of nausea, vomiting. * Patient was discharged in early May to subacute rehab when he was admitted for urinary tract infection, urine cultures grew E. coli treated with IV Rocephin and transition to oral Ceftin * While at rehab facility patient was constipated and had episode of nausea and vomiting. Ultrasound was done at the facility which showed questionable lesions throughout the abdomen. Patient also complained of epigastric pain and pain in his calf on presentation * Workup in ED included basic chemistry which shows sodium of 136 potassium 4.4 BU and 28 creatinine 0.6 blood glucose 102 * CBC obtained showed WBC 9.7 hemoglobin 14.4 platelet 417 * Urinalysis obtained showed moderate leukocyte esterase urine WBC 38., Rare bacteria, nitrite negative * Patient tested negative for influenza, RSV and coronavirus * While in ED patient was given IV fluid bolus and dose of Zofran * CT abdomen and pelvis obtained in ED showed 6.6 cm mass of left liver lobe with peripheral enhancement concern for hemangioma MRI liver recommended/scattered fluid-filled small bowel loops throughout the abdomen representing mild ileus/mild circumferential thickening or bladder noted concerning for cystitis/extensive sigmoid diverticulosis noted * CT head obtained in ER negative for acute intracranial process, left parietal resection cavity and moderate ventriculomegaly noted unchanged from previous MRI * Patient admitted to medical floor and started treatment for urinary tract infection with consultation from infectious disease * 06/09/2023: Patient seen and evaluated bedside, patient is alert however per family still confused. Had episode of nausea and vomiting x-ray KUB ordered for follow-up on ileus, follow-up CBC within normal limits, follow-up serum chemistry shows sodium 135 renal function within normal limits CRP 1.3 alpha- fetoprotein less than 3. MRI brain and MRI liver ordered. Patient radiation oncologist Dr. Castillo consulted as well based on family request since he mis sed outpatient appointment * 06/10/2023: Patient seen and evaluated bedside, patient does appear confused, seen by radiation oncology, MRI brain change to stat, MRI liver pending, no more nausea, vomiting * 06/11/2023: Patient seen and evaluated and bedside, plan discussed with radiation oncology, MRI brain reviewed does show enhancement with size measuring 5.3 x 3.8 cm around the anterior margin of surgical bed. Per radiation oncology this seems to be recurrence and worsening since last MRI on 04/30/23 did not have significant changes. * 06/12/2023: Patient seen and evaluated bedside. Patient alert to self, plan discussed with patient changed to no code antibiotics discontinued will use IV Decadron and he is transition to hospice REVIEW OF SYSTEMS: Nausea/vomiting/abdominal pain/ intermittent improved as of 06/10 CONSTITUTIONAL: No fever, no malaise, no fatigue. HEENT: No recent visual problems or hearing problems. Denied any sore throat. CARDIOVASCULAR: No chest pain, orthopnea, PND, no palpitations, no syncope. PULMONARY: No shortness of breath, no cough, no hemoptysis. GASTROINTESTINAL: Nausea/vomiting/abdominal pain NEUROLOGICAL: Patient does have chronic weakness right upper lower extremity and speech impairment which is chronic however bolus HEMATOLOGICAL: Denies any bleeding or petechiae. GENITOURINARY: Denies any burning micturition, frequency, or urgency. MUSCULOSKELETAL/RHEUMATOLOGICAL: Denies any joint pain, swelling, or any muscle pain. ENDOCRINE: Denies any polyuria or polydipsia. PHYSICAL EXAMINATION: See vitals below GENERAL: The patient is alert and oriented x 0 , not in any acute distress HEENT: Pupils are round and equally reacting to light. EOMI. CARDIOVASCULAR: S1 and S2 present. No murmurs PULMONARY: Chest is clear to auscultation, no wheezing or crackles. ABDOMEN: Soft, nontender, nondistended, normoactive bowel sounds. castellanos cath in place MUSCULOSKELETAL: No joint swelling or deformity. EXTREMITIES: No cyanosis, clubbing, or pedal edema. NEUROLOGICAL: Weakness noted on right upper and lower extremity that is chronic , Worsened right upper and lower extremity weakness motor strength 3 x 5 right upper extremity tuba for right lower extremity, dysarthria Objective - Vital Signs Vital signs: Vital Signs Temp 98 F 06/12/23 07:01 Pulse 61 06/12/23 07:01 Resp 16 06/12/23 07:01 BP 142/87 06/12/23 07:01 Pulse Ox 97 06/12/23 07:01 FiO2 Intake & Output 06/11/23 06/12/23 06/12/23 18:59 06:59 18:59 Intake Total 1080 Output Total 802 Balance 278 Weight 68.039 kg Intake: Intake, IV Titration 900 Amount Sodium Chloride 0.9% 1, 900 000 ml @ 75 mls/hr IV . [id number] [facility] Rx#:[id number] Oral 180 Output: Urine 800 Emesis 2 Other: Voiding Method Indwelling Catheter Indwelling Catheter Indwelling Catheter # Bowel Movements 1 1 - Labs CBC & Chem 7: 06/11/23 06:00 06/11/23 06:00 Assessment and Plan Assessment: Assessment and plan glioblastoma multiform with worsening right-sided weakness with concern for recurrence Recurrent urinary tract infection/history of E. coli UTI Catheter associated urinary tract infection Acute enteritis/ bowel ileus resolved Partial small bowel ileus with nausea and vomiting resolved Liver mass History of urinary retention requiring straight catheterization * In regards to glioblastoma history MRI brain completed discussed with radiation oncology concern for recurrence will coordinate with family regardin g goals of care, decided to transition to hospice upon discharge transition to no code patient started on IV Decadron 4 mg every 6 hours * In regards to urinary tract infection, urine cultures ordered continue patient was on IV Rocephin which has been completed, infectious disease consulted, Castellanos catheter changed * In regards to acute enteritis, serial abdominal exams continue patient on regular diet, monitor for diarrhea, as needed Zofran for nausea continue with fluid resuscitation/x-ray KUB reviewed nonobstructive bowel gas pattern noted * In regards to liver mass, MRI liver completed alpha-fetoprotein normal limits * In regards to history of glioblastoma continue follow-up with oncology out patient, MRI brain completed radiation oncology consulted/appreciate recommendation * Patient was recently discharged to subacute rehab will need physical therapy occupational therapy reevaluation * Status is no code, plan to transition to hospice
--- NOTE | 2023-06-12 12:43 | P.PN ---
Subjective Progress Note Date: 06/12/23 Principal diagnosis: Reason for follow-up is possible UTI Patient is a 57-year-old male with a past medical history significant for glioblastoma multiforme presented to hospital with mental status changes did have a positive concerning for recurrent UTI CT shows evidence of possible cystitis; On today's evaluation and that is 06/12/2023, the patient remains to be afeb rile, the patient is breathing comfortably on room air and the patient denies any shortness of breath, the patient denies chest pain or any cough , patient denies abdominal pain, no nausea/vomiting and no diarrhea Patient did have a white count is 8.07, creatinine 0.5 as of 06/11/2023, urine culture negative so far, MRI of the brain concerning for progression of the brain tumor Objective - Vital Signs Vital signs: Vital Signs Temp 98 F 06/12/23 07:01 Pulse 61 06/12/23 07:01 Resp 16 06/12/23 07:01 BP 142/87 06/12/23 07:01 Pulse Ox 97 06/12/23 07:01 FiO2 Intake & Output 06/11/23 06/12/23 06/12/23 18:59 06:59 18:59 Intake Total 1080 Output Total 802 Balance 278 Weight 68.039 kg Intake: Intake, IV Titration 900 Amount Sodium Chloride 0.9% 1, 900 000 ml @ 75 mls/hr IV . [id number] [facility] Rx#:[id number] Oral 180 Output: Urine 800 Emesis 2 Other: Voiding Method Indwelling Catheter Indwelling Catheter # Bowel Movements 1 1 - Exam GENERAL DESCRIPTION: A middle-aged male lying in bed in no distress RESPIRATORY SYSTEM: Unlabored breathing , clear to auscultation anteriorly HEART: S1 S2 regular rate and rhythm , ABDOMEN: Soft , no tenderness EXTREMITIES: No edema feet - Labs CBC & Chem 7: 06/11/23 06:00 06/11/23 06:00 Assessment and Plan (1) UTI (urinary tract infection) Current Visit: Yes Status: Acute Code(s): N39.0 - URINARY TRACT INFECTION, SITE NOT SPECIFIED SNOMED Code(s): 69107519 Plan: 1patient presented to hospital with nausea and vomiting in this patient who did have a history of glioblastoma and recent admission to the hospital with symptomatic UTI secondary to E. coli, patient did have a CT of abdominal pelvis did not mention any evidence of colitis or diverticulitis that shows evidence of bladder wall thickening suspicious for cystitis and did have a positive UA possibly responsible for her symptoms 2-patient symptoms could be more likely related to progression of underlying Glioblastoma for which radiation oncology is on the case 3-with concern for UTI the patient is covered with Rocephin 1 g daily to continue to finish a seven-day course of therapy And monitor clinical course closely Dictation was produced using [employer] software. please excuse any grammatical, word or spelling errors. Time with Patient: Less than 30
[2023-06-12] MEDS ORDERED: bisacodyL 10 MG SUPP RECTAL PRN (14:52)
[2023-06-12 22:25] VITALS: RESP 16
[2023-06-13] MEDS: DEXAMETHASONE SOD PHOSPHATE 4 MG/ML 1 ML VIAL IVP SCH ×2 (05:24→15:06)
[2023-06-13] MEDS: SODIUM CHLORIDE 0.9% 1,000 ML IV SCH (09:20)
[2023-06-13] MEDS: TAMSULOSIN 0.4 MG CAP.ER.24H PO SCH ×2 (09:21→20:33)
[2023-06-13] MEDS: PANTOPRAZOLE 40 MG/10 ML VIAL IVP SCH ×2 (09:22→20:33)
[2023-06-13] MEDS: ENOXAPARIN 40 MG/0.4 ML SYRINGE SQ SCH (09:22)
[2023-06-13] MEDS: ONDANSETRON 4 MG/2 ML VIAL IVP PRN ×2 (12:05→23:28)
--- NOTE | 2023-06-13 13:36 | P.PN ---
Subjective Progress Note Date: 06/13/23 * 57-year-old gentleman with history of glioblastoma multiform follows up with oncology, recent admission for urinary tract infection, bladder outlet flow obstruction presents to the emergency department with complains of nausea, vomiting. * Patient was discharged in early May to subacute rehab when he was admitted for urinary tract infection, urine cultures grew E. coli treated with IV Rocephin and transition to oral Ceftin * While at rehab facility patient was constipated and had episode of nausea and vomiting. Ultrasound was done at the facility which showed questionable lesions throughout the abdomen. Patient also complained of epigastric pain and pain in his calf on presentation * Workup in ED included basic chemistry which shows sodium of 136 potassium 4.4 BU and 28 creatinine 0.6 blood glucose 102 * CBC obtained showed WBC 9.7 hemoglobin 14.4 platelet 417 * Urinalysis obtained showed moderate leukocyte esterase urine WBC 38., Rare bacteria, nitrite negative * Patient tested negative for influenza, RSV and coronavirus * While in ED patient was given IV fluid bolus and dose of Zofran * CT abdomen and pelvis obtained in ED showed 6.6 cm mass of left liver lobe with peripheral enhancement concern for hemangioma MRI liver recommended/scattered fluid-filled small bowel loops throughout the abdomen representing mild ileus/mild circumferential thickening or bladder noted concerning for cystitis/extensive sigmoid diverticulosis noted * CT head obtained in ER negative for acute intracranial process, left parietal resection cavity and moderate ventriculomegaly noted unchanged from previous MRI * Patient admitted to medical floor and started treatment for urinary tract infection with consultation from infectious disease * 06/09/2023: Patient seen and evaluated bedside, patient is alert however per family still confused. Had episode of nausea and vomiting x-ray KUB ordered for follow-up on ileus, follow-up CBC within normal limits, follow-up serum chemistry shows sodium 135 renal function within normal limits CRP 1.3 alpha- fetoprotein less than 3. MRI brain and MRI liver ordered. Patient radiation oncologist Dr. Castillo consulted as well based on family request since he mis sed outpatient appointment * 06/10/2023: Patient seen and evaluated bedside, patient does appear confused, seen by radiation oncology, MRI brain change to stat, MRI liver pending, no more nausea, vomiting * 06/11/2023: Patient seen and evaluated and bedside, plan discussed with radiation oncology, MRI brain reviewed does show enhancement with size measuring 5.3 x 3.8 cm around the anterior margin of surgical bed. Per radiation oncology this seems to be recurrence and worsening since last MRI on 04/30/23 did not have significant changes. * 06/12/2023: Patient seen and evaluated bedside. Patient alert to self, plan discussed with patient changed to no code antibiotics discontinued will use IV Decadron and he is transition to hospice * 06/13/23: Patient seen and evaluated bedside, patient continues to remain disoriented outpatient waiting to transition to hospice REVIEW OF SYSTEMS: Nausea/vomiting/abdominal pain/ intermittent improved as of 06/10 Review of system limited patient comfort measures PHYSICAL EXAMINATION: See vitals below GENERAL: The patient is alert and oriented x 0 , not in any acute distress HEENT: Pupils are round and equally reacting to light. EOMI. CARDIOVASCULAR: S1 and S2 present. No murmurs PULMONARY: Chest is clear to auscultation, no wheezing or crackles. ABDOMEN: Soft, nontender, nondistended, normoactive bowel sounds. castellanos cath in place MUSCULOSKELETAL: No joint swelling or deformity. EXTREMITIES: No cyanosis, clubbing, or pedal edema. NEUROLOGICAL: Weakness noted on right upper and lower extremity that is chronic , Worsened right upper and lower extremity weakness motor strength 3 x 5 right upper extremity r0/5 right lower extremity, dysarthria, altered mentation Objective - Vital Signs Vital signs: Vital Signs Temp 97.5 F L 06/13/23 12:15 Pulse 48 L 06/13/23 12:15 Resp 16 06/13/23 12:15 BP 158/90 06/13/23 12:15 Pulse Ox 99 06/13/23 12:15 FiO2 Intake & Output 06/12/23 06/13/23 06/13/23 18:59 06:59 18:59 Intake Total 900 Output Total 1200 1600 Balance -300 -1600 Intake: Intake, IV Titration 900 Amount Sodium Chloride 0.9% 1, 900 000 ml @ 75 mls/hr IV . [id number] [facility] Rx#:[id number] Output: Urine 1200 1600 Other: Voiding Method Indwelling Catheter Indwelling Catheter # Voids 2 # Bowel Movements 1 - Labs CBC & Chem 7: 06/11/23 06:00 06/11/23 06:00 Assessment and Plan Assessment: Assessment and plan glioblastoma multiform with worsening right-sided weakness with concern for recurrence Recurrent urinary tract infection/history of E. coli UTI Catheter associated urinary tract infection Acute enteritis/ bowel ileus resolved Partial small bowel ileus with nausea and vomiting resolved Liver mass History of urinary retention requiring straight catheterization * In regards to glioblastoma history MRI brain completed discussed with radiation oncology concern for recurrence will coordinate with family regarding goals of care, decided to transition to hospice upon discharge transition to no code patient was started on IV Decadron 4 mg every 6 hours however discontinued, planned to transition to hospice, Lovenox discontinued as well * In regards to urinary tract infection, urine cultures ordered continue patient was on IV Rocephin which has been completed, infectious disease consulted, Fo edi catheter changed * In regards to acute enteritis, serial abdominal exams continue patient on regu lar diet, monitor for diarrhea, as needed Zofran for nausea continue with fluid resuscitation/x-ray KUB reviewed nonobstructive bowel gas pattern noted * In regards to liver mass, MRI liver completed alpha-fetoprotein normal limits * In regards to history of glioblastoma continue follow-up with oncology outpatient, MRI brain completed radiation oncology consulted/appreciate recommendation * Patient was recently discharged to subacute rehab will need physical therapy occupational therapy reevaluation * Status is no code, plan to transition to hospice, plan is to keep patient comfortable while inpatient. Waiting for placement
[2023-06-14] MEDS: SODIUM CHLORIDE 0.9% 1,000 ML IV SCH (06:15)
[2023-06-14 08:25] VITALS: PULSE 60; TEMP 97.9
[2023-06-14] MEDS: PANTOPRAZOLE 40 MG/10 ML VIAL IVP SCH (08:49)
[2023-06-14] MEDS: TAMSULOSIN 0.4 MG CAP.ER.24H PO SCH (08:49)
[2023-06-14] MEDS: ONDANSETRON 4 MG/2 ML VIAL IVP PRN (09:05)
--- NOTE | 2023-06-14 12:56 | P.DS ---
Providers Date of admission: 06/10/23 11:59 Expected date of discharge: 06/14/23 Attending physician: Fuad Naidu MD Consults: 06/08/23 09:23 Consult Physician Routine Consulting Provider: Caridad He Consult Reason/Comments: recurrent UTI Do you want consulting provider notified?: Yes 06/09/23 13:04 Consult Physician Routine Consulting Provider: Dwaine Castillo Consult Reason/Comments: History of glioblastoma needs follow-up Do you want consulting provider notified?: Yes Primary care physician: Stated None Hospital Course: * 57-year-old gentleman with history of glioblastoma multiform follows up with oncology, recent admission for urinary tract infection, bladder outlet flow obstruction presents to the emergency department with complains of nausea, vomiting. * Patient was discharged in early May to subacute rehab when he was admitted for urinary tract infection, urine cultures grew E. coli treated with IV Rocephin and transition to oral Ceftin * While at rehab facility patient was constipated and had episode of nausea and vomiting. Ultrasound was done at the facility which showed questionable lesions throughout the abdomen. Patient also complained of epigastric pain and pain in his calf on presentation * Workup in ED included basic chemistry which shows sodium of 136 potassium 4.4 BU and 28 creatinine 0.6 blood glucose 102 * CBC obtained showed WBC 9.7 hemoglobin 14.4 platelet 417 * Urinalysis obtained showed moderate leukocyte esterase urine WBC 38., Rare bacteria, nitrite negative * Patient tested negative for influenza, RSV and coronavirus * While in ED patient was given IV fluid bolus and dose of Zofran * CT abdomen and pelvis obtained in ED showed 6.6 cm mass of left liver lobe with peripheral enhancement concern for hemangioma MRI liver recommended/scattered fluid-filled small bowel loops throughout the abdomen representing mild ileus/mild circumferential thickening or bladder noted concerning for cystitis/extensive sigmoid diverticulosis noted * CT head obtained in ER negative for acute intracranial process, left parietal resection cavity and moderate ventriculomegaly noted unchanged from previous MRI * Patient admitted to medical floor and started treatment for urinary tract infection with consultation from infectious disease * 06/09/2023: Patient seen and evaluated bedside, patient is alert however per family still confused. Had episode of nausea and vomiting x-ray KUB ordered for follow-up on ileus, follow-up CBC within normal limits, follow-up serum chemistry shows sodium 135 renal function within normal limits CRP 1.3 alpha- fetoprotein less than 3. MRI brain and MRI liver ordered. Patient radiation oncologist Dr. Castillo consulted as well based on family request since he missed outpatient appointment * 06/10/2023: Patient seen and evaluated bedside, patient does appear confused, seen by radiation oncology, MRI brain change to stat, MRI liver pending, no more nausea, vomiting * 06/11/2023: Patient seen and evaluated and bedside, plan discussed with radiation oncology, MRI brain reviewed does show enhancement with size measuring 5.3 x 3.8 cm around the anterior margin of surgical bed. Per radiation oncology this seems to be recurrence and worsening since last MRI on 04/30/23 did not have significant changes. * 06/12/2023: Patient seen and evaluated bedside. Patient alert to self, plan discussed with patient changed to no code antibiotics discontinued will use IV Decadron and he is transition to hospice * 06/13/23: Patient seen and evaluated bedside, patient continues to remain disoriented outpatient waiting to transition to hospice * 06/14/2023: Patient evaluated bedside care she is lethargic, comfortable, seen by hospice and transition to hospice medical facility * Nausea/vomiting/abdominal pain/ intermittent improved as of 06/10 Review of system limited patient comfort measures PHYSICAL EXAMINATION: See vitals below GENERAL: The patient is alert and oriented x 0 , not in any acute distress, confused,s PULMONARY: Chest is clear to auscultation, no wheezing or crackles. ABDOMEN: Soft, nontender, nondistended, normoactive bowel sounds. castellanos cath in place MUSCULOSKELETAL: No joint swelling or deformity. EXTREMITIES: No cyanosis, clubbing, or pedal edema. NEUROLOGICAL: Weakness noted on right upper and lower extremity that is chronic , Worsened right upper and lower extremity weakness motor strength , 3 x 5 right upper extremity , 0/5 right lower extremity, dysarthria, altered mentation Assessment: Assessment and plan glioblastoma multiform with worsening right-sided weakness with concern for recurrence Recurrent urinary tract infection/history of E. coli UTI Catheter associated urinary tract infection Acute enteritis/ bowel ileus resolved Partial small bowel ileus with nausea and vomiting resolved Liver mass History of urinary retention requiring straight catheterization * In regards to glioblastoma history MRI brain completed discussed with radiation oncology concern for recurrence will coordinate with family regarding goals of care, decided to transition to hospice upon discharge transition to no code patient was started on IV Decadron 4 mg every 6 hours however discontinued, planned to transition to hospice, Lovenox discontinued as well>> discharge to hospice medical facility * In regards to urinary tract infection, urine cultures ordered continue patient was on IV Rocephin which has been completed, infectious disease consulted, Fol ey catheter changed>> SARS to hospice medical facility * In regards to acute enteritis, serial abdominal exams continue patient on regular diet, monitor for diarrhea, as needed Zofran for nausea continue with fluid resuscitation/x-ray KUB reviewed nonobstructive bowel gas pattern noted * In regards to liver mass, MRI liver completed alpha-fetoprotein normal limits * In regards to history of glioblastoma continue follow-up with oncology outpatient, MRI brain completed radiation oncology consulted/appreciate recommendation * Patient was recently discharged to subacute rehab will need physical therapy occupational therapy reevaluation * Status is no code, plan to transition to hospice, plan is to keep patient comfortable while inpatient. * Patient discharged to hospice medical facility Patient Condition at Discharge: Poor Plan - Discharge Summary Discharge Rx Participant: No New Discharge Prescriptions: Continue Ondansetron [Zofran] 4 mg PO Q8H PRN PRN Reason: Nausea And Vomiting Acetaminophen [Tylenol 8 Hour] 650 mg PO Q6H PRN PRN Reason: Pain Tamsulosin HCl [Flomax] 0.4 mg PO BID Magnesium Hydroxide [Milk of Magnesia] 2,400 mg PO Q72H PRN PRN Reason: Constipation Mag Hydrox/Aluminum Hyd/Simeth [Mylanta Maximum Strength Liq] 30 ml PO Q4H PRN PRN Reason: Nausea Albuterol Sulfate [Albuterol Sulfate Hfa] 2 puff PO RT-Q6H PRN PRN Reason: Shortness Of Breath Omeprazole [PriLOSEC] 20 mg PO DAILY Discharge Medication List Tamsulosin HCl [Flomax] 0.4 mg PO BID 01/30/22 [History] Ondansetron [Zofran] 4 mg PO Q8H PRN 12/26/22 [History] Acetaminophen [Tylenol 8 Hour] 650 mg PO Q6H PRN 06/07/23 [History] Albuterol Sulfate [Albuterol Sulfate Hfa] 2 puff PO RT-Q6H PRN 06/07/23 [History] Mag Hydrox/Aluminum Hyd/Simeth [Mylanta Maximum Strength Liq] 30 ml PO Q4H PRN 06/07/23 [History] Magnesium Hydroxide [Milk of Magnesia] 2,400 mg PO Q72H PRN 06/07/23 [History] Omeprazole [PriLOSEC] 20 mg PO DAILY 06/07/23 [History] Discharge Disposition: OTHER INSTITUTION NOT DEFINED
[2023-06-14 13:12] VITALS: BP 122/81
== END 2023-06-14 15:21 | disposition hospice, inpatient (51) | DRG 54 ==
LOC: EC 13:08 → 5NMEDONC 20:57 → OBSVTOIN 06-10 11:59
PROVIDERS: ADMIT Internal Medicine; ATTEND Internal Medicine
DX: C71.9 Malignant neoplasm of brain, unspecified (principal); G93.41 Metabolic encephalopathy; K56.7 Ileus, unspecified; N39.0 Urinary tract infection, site not specified; T83.518A Infection and inflammatory reaction due to other urinary catheter, initial encounter; R47.01 Aphasia; L89.302 Pressure ulcer of unspecified buttock, stage 2; R16.0 Hepatomegaly, not elsewhere classified; Z11.52 Encounter for screening for COVID-19; Z28.310 Unvaccinated for COVID-19; Z66 Do not resuscitate; Z51.5 Encounter for palliative care; R33.9 Retention of urine, unspecified; K52.9 Noninfective gastroenteritis and colitis, unspecified; K59.00 Constipation, unspecified; N32.0 Bladder-neck obstruction; K57.30 Diverticulosis of large intestine without perforation or abscess without bleeding; M62.81 Muscle weakness (generalized); M79.669 Pain in unspecified lower leg; R27.0 Ataxia, unspecified; Z79.899 Other long term (current) drug therapy; Z87.440 Personal history of urinary (tract) infections; Z92.21 Personal history of antineoplastic chemotherapy; Z92.3 Personal history of irradiation; Y84.6 Urinary catheterization as the cause of abnormal reaction of the patient, or of later complication, without mention of misadventure at the time of the procedure
CPT/HCPCS: 36415; 70460; 70553; 74018; 74177; 74183; 80048; 80053; 81001; 82105; 83605; 83690; 85025; 85027; 86140; 87086; 87636; 93005; 93970; 96361; 96365; 96375; 99285